=== PATIENT | male | born 1940 | race Caucasian/White ===

== ENCOUNTER → 2016-02-17 | Outpatient (CLI) | payer OTHER ==
[~2016-02-17] MED LIST: ALBU1AER9 INH; ASPI325T39 PO; CRS/10 PO; FAMO1TAB47 PO; FEXO1TAB49 PO; FLUO20CA36 PO; FLUO40CA8 PO; FLUT1INH INH; FLUT220A INH; GLC/500 PO; HYCUDL5 PO; HYG25 PO; MONT1TAB3 PO; MRLP17X PO; NRV/5 PO; NRV5 PO; NTRGSL/4 UT; ONDA4TAB10 SL; ONDA4TAB46 PO; OXYC1TAB3 PO; POTA-74 PO; POTA10TA32 PO; PRED10TA PO; PRLSR20 PO; PRS5 PO; ROSU20TA PO; TAMS0.4C38 PO; TRAZ50TA35 PO; VNTHFA/IN INH
--- NOTE | 2016-02-17 15:00 | DIAGNOSTIC IMAGING REPORT ---
CHEST 2 VIEWS ROUTINE CLINICAL HISTORY: R05 [id number] COMPARISON STUDY: 03/11/2015 FINDINGS: The heart is the upper limits of normal in size. There are small bilateral pleural effusions with associated minor bibasal airspace opacities, atelectatic versus inflammatory.[ IMPRESSION: Very small bilateral pleural effusions with minor bibasilar airspace opacities (atelectatic versus inflammatory Electronically signed by: Vinay Manley M.D. 02/17/2016 2:58 PM Dictated Date/Time: 02/17/2016 2:56 PM
== END | disposition home or self-care (01) ==
LOC: C.RAD1850 14:44
PROVIDERS: ATTEND Allergy & Immunology Allergy
DX: R05 Cough (principal)

== ENCOUNTER 2016-07-20 16:36 | Inpatient (IN) | payer OTHER ==
[~2016-07-20] VITALS: Ht 172.7 cm; Wt 103.0 kg
[~2016-07-20 16:36] MED LIST changes: -FAMO1TAB47 PO; -FLUO20CA36 PO; -FLUT1INH INH; -GLC/500 PO; -HYCUDL5 PO; -NRV/5 PO; -ONDA4TAB10 SL; -OXYC1TAB3 PO; -POTA10TA32 PO; -PRED10TA PO; -PRS5 PO; -ROSU20TA PO; -TRAZ50TA35 PO; -VNTHFA/IN INH
--- NOTE | 2016-07-20 17:22 | EMERGENCY ROOM VISIT NOTE ---
History Report prepared by Gigi: Teresa Padron Under the Supervision of: Dorothea MichaelO. First contact with patient: 16:46 Chief Complaint: SHORTNESS OF BREATH Stated Complaint: CANT CATCH BREATH, WEAK IN THE LEGS History of Present Illness The patient is a 75 year old male who presents to the Emergency Room with complaints of worsening shortness of breath for the past 2 months. He has had a dry cough for about the same time and states that his cough is getting worse now as well. Cough now occasionally more productive, no hemoptysis. His symptoms are worse with exertion and movement. The patient states that when he walks he gets weak in his legs and sometimes feels like he is going to fall over. He notes pain in his left ribs and chest pressure which are worsened with coughing. States this is chronic and related to prior surgery on his diaphragm. He states that the only way he is able to sleep at night is by laying on his left side. states that his ankles have started to swell. The patient has an inhaler at home that he has been using without any relief. His symptoms actually worsen after using his inhaler. He denies recent cold symptoms. Pt denies headache, change in vision, fevers, nausea, vomiting, and hemoptysis. The patient saw his PCP and a sales office manager for his symptoms. He was supposed to see a waiter and cashier but never made an appointment. He saw his PCP again and was sent to the ED for further evaluation. Denies any new exposures, history of TB , or other sick contacts. No recent travel. Source of History: patient, spouse/significant other Onset: 2 months ago Position: other (respiratory) Quality: other (shortness of breath) Timing: worsening Modifying Factors (Worsening): exertion, movement Modifying Factors (Relieving): rest (laying on left side) Associated Symptoms: + cough, + chest pain, + weakness, No fevers, No headache, No nausea, No vomiting Note: notes ankle swelling. Review of Systems See HPI for pertinent positives & negatives. A total of 10 systems reviewed and were otherwise negative. 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 (14) Pulmonary nodule (15) Suspected AAA (16) Weakness of right lower extremity Surgical Problems: (1) H/O coronary angioplasty (2) H/o kidney stone removal (3) S/p removal of malignant lesion of colon (4) S/P thoracotomy Family History FH: cancer FATHER (lung CA) FH: emphysema MOTHER SISTER Social History Smoking Status: Never Smoker Drug Use: none Marital Status: Housing Status: lives with family Current/Historical Medications Scheduled Albuterol Hfa (Ventolin Hfa), 2-4 PUFFS INH Q6H Amlodipine Besylate (Amlodipine Besylate), 5 MG PO DAILY Aspirin (Aspirin Ec), 325 MG PO DAILY Chlorthalidone (Chlorthalidone), 25 MG PO DAILY Finasteride (Finasteride), 5 MG PO DAILY Fluoxetine HCl (Fluoxetine HCl), 10 MG PO DAILY Montelukast Sodium (Singulair), 10 MG PO DAILY Omeprazole (Prilosec), 20 MG PO BID Potassium Chloride Microencaps (Potassium Chloride Er), 10 MEQ PO DAILY Tamsulosin Hcl (Flomax), 0.4 MG PO HS Scheduled PRN Fexofenadine Hcl (Vane Allergy), 180 MG PO DAILY PRN for Allergies Nitroglycerin (Nitrostat), 0.4 MG UT UD PRN for Chest Pain Ondansetron Hcl (Zofran), 4 MG PO Q6H PRN for Nausea Polyethylene (Miralax), 17 GM PO DAILY PRN for Constipation Allergies Coded Allergies: [place] Nut (Verified Allergy, Severe, [place] NUT = THROAT SWELLING, 01/24) Grass (Verified Allergy, Unknown, HAY FEVER, 07/20/16) Atenolol (Verified Adverse Reaction, Unknown, Cough, 07/20/16) Physical Exam Vital Signs Date Time Temp Pulse Resp B/P (MAP) Pulse Ox O2 Delivery O2 Flow Rate FiO2 07/20/16 20:30 93 Nasal Cannula 2.0 07/20/16 20:25 83 Room Air 07/20/16 20:01 79 15 142/79 98 Nasal Cannula 2.0 07/20/16 19:31 75 22 144/78 95 Nasal Cannula 2.0 07/20/16 18:31 83 21 136/79 95 Nasal Cannula 2.0 07/20/16 18:01 87 24 154/87 95 Nasal Cannula 2.0 07/20/16 17:46 84 16 145/82 95 Nasal Cannula 2.0 07/20/16 17:19 88 07/20/16 16:54 92 Room Air 07/20/16 16:54 92 Room Air 07/20/16 16:38 36.7 99 18 143/85 90 Room Air Physical Exam GENERAL: alert, well appearing, well nourished, no distress, non-toxic EYE EXAM: normal conjunctiva, PERRL and EOM's grossly intact OROPHARYNX: no exudate, no erythema, lips, buccal mucosa, and tongue normal and mucous membranes are moist NECK: supple, no nuchal rigidity, no adenopathy, non-tender LUNGS: Coarse breath sounds bilaterally. Normal chest wall mechanics HEART: no murmurs, S1 normal and S2 normal ABDOMEN: abdomen soft, non-tender, normo-active bowel sounds, no masses, no rebound or guarding. BACK: Back is symmetrical on inspection and there is no deformity, no midline tenderness, no CVA tenderness. SKIN: no rashes and no bruising UPPER EXTREMITIES: upper extremities are grossly normal. LOWER EXTREMITIES: Trace pedal edema bilaterally. NEURO EXAM: Normal sensorium, cranial nerves II-XII grossly intact, normal speech, no gross weakness of arms, no gross weakness of legs. Medical Decision & Procedures ER Provider Diagnostic Interpretation: Radiology results have been interpreted by the radiologist and reviewed by me. CHEST 2 VIEWS ROUTINE CLINICAL HISTORY: Shortness of breath and cough. COMPARISON STUDY: Chest CT December 27, 2015 and chest radiograph February 17, 2016. FINDINGS: No pneumothorax is present. There may be trace bilateral pleural effusions. These appear unchanged. Mild bilateral interstitial thickening is unchanged since earlier exams. This suggests interstitial lung disease. There is no evidence of pulmonary edema. Cardiomegaly is unchanged. IMPRESSION: No acute cardiopulmonary findings. No significant change in appearance of the chest. Electronically signed by: Inocencio Kidd M.D. 07/20/2016 5:47 PM Dictated Date/Time: 07/20/2016 5:[address] OF THE CHEST WITH IV CONTRAST CLINICAL HISTORY: Cough and shortness of breath. COMPARISON STUDY: Chest CT December 27, 2015 and chest radiograph July 20, 2016. TECHNIQUE: Following IV administration of 120 mL of Optiray-320, helical axial images of the chest were obtained. Images were viewed in the axial, sagittal and coronal planes. IV contrast was administered without complication. CT DOSE: 585.57 mGy.cm FINDINGS: Mild dilatation of the ascending aorta, measuring 4.3 cm at the level the main pulmonary artery is unchanged. The heart is moderately enlarged. Extensive coronary artery calcification is present. There is no pericardial effusion. A left thoracotomy is noted. There are postsurgical findings at the gastroesophageal junction. A hiatal hernia or epiphrenic diverticulum is unchanged. Mild esophageal dilatation is unchanged. Several mildly enlarged thoracic lymph nodes have slightly increased since exam. An index right hilar node shown image 119 of 256 measures 1.4 cm in short axis diameter. It previously measured 1.2 cm. Index right paratracheal no measures 1 cm. No pneumothorax or pleural effusion is present. Multifocal groundglass opacities are noted. There is mild subpleural reticulation without honeycombing. There is no lobar consolidation. Central airways are patent. Visualized portions of the upper abdomen demonstrate fatty infiltration of the liver. IMPRESSION: 1. No significant change in scattered groundglass opacities and subpleural reticulation. No honeycombing or traction bronchiectasis. The findings may reflect interstitial lung disease with an NSIP pattern. 2. Stable mild dilatation of the ascending aorta. Moderate cardiomegaly with extensive coronary artery calcification. 3. No change in appearance of the esophagus with mild esophageal dilatation and a hiatal hernia/epiphrenic diverticulum. 4. Fatty liver. 5. Slight increase in mild mediastinal and right hilar lymphadenopathy. This is likely reactive although a follow-up chest CT in 6 months could be obtained. Electronically signed by: Inocencio Kidd M.D. 07/20/2016 7:27 PM Dictated Date/Time: 07/20/2016 7:13 PM Laboratory Results 07/20/16 17:20 Red Blood Count 4.75, Mean Corpuscular Volume 93.3, Mean Corpuscular Hemoglobin 31.2, Mean Corpuscular Hemoglobin Concent 33.4, Mean Platelet Volume 9.4, Neutrophils (%) (Auto) 60.4, Lymphocytes (%) (Auto) 22.9, Monocytes (%) (Auto) 11.2, Eosinophils (%) (Auto) 4.9, Basophils (%) (Auto) 0.3, Neutrophils # (Auto ) 3.94, Lymphocytes # (Auto) 1.49, Monocytes # (Auto) 0.73, Eosinophils # (Auto ) 0.32, Basophils # (Auto) 0.02 07/20/16 17:20 Test 07/20/16 17:20 07/20/16 18:55 White Blood Count 6.52 K/uL (4.8-10.8) Red Blood Count 4.75 M/uL (4.7-6.1) Hemoglobin 14.8 g/dL (14.0-18.0) Hematocrit 44.3 % (42-52) Mean Corpuscular Volume 93.3 fL (80-100) Mean Corpuscular Hemoglobin 31.2 pg (25-34) Mean Corpuscular Hemoglobin Concent 33.4 g/dl (32-36) Platelet Count 229 K/uL (130-400) Mean Platelet Volume 9.4 fL (7.4-10.4) Neutrophils (%) (Auto) 60.4 % Lymphocytes (%) (Auto) 22.9 % Monocytes (%) (Auto) 11.2 % Eosinophils (%) (Auto) 4.9 % Basophils (%) (Auto) 0.3 % Neutrophils # (Auto) 3.94 K/uL (1.4-6.5) Lymphocytes # (Auto) 1.49 K/uL (1.2-3.4) Monocytes # (Auto) 0.73 K/uL (0.11-0.59) Eosinophils # (Auto) 0.32 K/uL (0-0.5) Basophils # (Auto) 0.02 K/uL (0-0.2) RDW Standard Deviation 43.6 fL (36.4-46.3) RDW Coefficient of Variation 12.7 % (11.5-14.5) Immature Granulocyte % (Auto) 0.3 % Immature Granulocyte # (Auto) 0.02 K/uL (0.00-0.02) D-Dimer 470 ug/L FEU (0-500) Anion Gap 8.0 mmol/L (3-11) Est Creatinine Clear Calc Drug Dose 77.6 ml/min Estimated GFR () 86.2 Estimated GFR (Non- 74.3 BUN/Creatinine Ratio 16.2 (10-20) Calcium Level 8.5 mg/dl (8.5-10.1) Total Bilirubin 0.3 mg/dl (0.2-1) Aspartate Amino Transf (AST/SGOT) 56 U/L (15-37) Alanine Aminotransferase (ALT/SGPT) 87 U/L (12-78) Alkaline Phosphatase 55 U/L (45-117) Pro-B-Type Natriuretic Peptide 125 pg/ml (0-900) Total Protein 7.7 gm/dl (6.4-8.2) Albumin 3.7 gm/dl (3.4-5.0) Globulin 4.0 gm/dl (2.5-4.0) Albumin/Globulin Ratio 0.9 (0.9-2) Chemistry Specimen Hemolysis Urine Color YELLOW Urine Appearance CLEAR (CLEAR) Urine pH 7.0 (4.5-7.5) Urine Specific [place] 1.021 (1.000-1.030) Urine Protein NEG (NEG) Urine Glucose (UA) NEG (NEG) Urine Ketones NEG (NEG) Urine Occult Blood NEG (NEG) Urine Nitrite NEG (NEG) Urine Bilirubin NEG (NEG) Urine Urobilinogen NEG (NEG) Urine Leukocyte Esterase NEG (NEG) Laboratory results per my review. Medications Administered Medications (Trade) Dose Ordered Sig/Janet Route Start Time Stop Time Status Last Admin Dose Admin Albuterol/ Ipratropium (Duoneb) 3 ml NOW STAT INH 07/20/16 19:33 07/20/16 19:34 DC 07/20/16 19:52 3 ML Methylprednisolone Sodium Succinate (Solu-Medrol IV) 80 mg NOW STAT IV 07/20/16 19:34 07/20/16 19:35 DC 07/20/16 19:52 80 MG Albuterol/ Ipratropium (Duoneb) 3 ml NOW STAT INH 07/20/16 20:15 07/20/16 20:17 DC 07/20/16 21:25 3 ML Pantoprazole Sodium (Protonix Tab) 40 mg NOW STAT PO 07/20/16 20:15 07/20/16 20:17 DC 07/20/16 20:25 40 MG ECG Indication: SOB/dyspnea Rate (beats per minute): 90 Rhythm: normal sinus Findings: no acute ischemic change, left axis deviation, other (normal intervals) ED Course 1650: The patient was evaluated in room B5. A complete history and physical exam was performed. 1932: DuoNeb 3 ml INH 1933: Solu-Medrol 80 mg IV 1936: I reassessed the patient at this time. He is resting comfortably. I discussed the results and treatment plan with the patient and his . I answered all pertaining questions that they had. They expressed understanding and verbalized agreement. 2010: I spoke with Dr. Garibay. We discussed the patients results and treatment plan. The patient will be evaluated by the [facility] for further management. Medical Decision Differential diagnoses includes but is not limited to pneumonia, bronchitis, COPD/Asthma exacerbation, pneumothorax, pulmonary embolism, congestive heart failure, acute coronary syndrome. Medication Reconciliation: I attest that I have personally reviewed the patient' s current medication list. Patient well-appearing here despite complaints, however at rest just with conversation patient's saturations 87%. Patient placed on nasal cannula 2 L/m and sats improved to 95%. Patient reported improvement of being on the nasal cannula. No focal area of consolidation however CT the patient's chest revealed bilateral groundglass opacities consistent with NSIP. Patient started on steroids and nebulizer treatments here. No leukocytosis or fever to suggest other occult infection. 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 Patient noted for continued treatment, monitoring of hypoxia and hopeful weaning off of oxygen requirements. Likely will need pulmonary consultation. Doubt cardiac etiology, although given patient's age and risk factors, possible component of congestive heart failure could still be considered. Patient's vital signs otherwise stable in the emergency department. Doubt PE, ACS, tamponade, no evidence of effusion, doubt bacteremia/sepsis. Consults Time Called: 1944 Consulting Physician: Dr. Garibay Returned Call: [address] Garibay. We discussed the patients results and treatment plan. The patient will be evaluated by the [facility] for further management. Impression Primary Impression: Dyspnea Additional Impressions: Hypoxia NSIP (nonspecific interstitial pneumonia) Scribe Attestation The scribe's documentation has been prepared under my direction and personally reviewed by me in its entirety. I confirm that the note above accurately reflects all work, treatment, procedures, and medical decision making performed by me. Departure Information Dispostion Being Evaluated By Hospitalist Referrals Arminda Chen D.O. (PCP) Patient Instructions [facility] Problem Qualifiers Primary Impression: Dyspnea Dyspnea type: dyspnea on exertion Qualified Codes: R06.09 - Other forms of dyspnea
[2016-07-20 17:33] LABS: BASO % 0.3 %; BASO ABS # 0.02 K/uL (0-0.2); COMPLETE YES; EOS % 4.9 %; HEMATOCRIT 44.3 % (42-52); IG% 0.3 %; LYMPH % 22.9 %; LYMPH ABS # 1.49 K/uL (1.2-3.4); MEAN CELL VOLUME 93.3 fL (80-100); MEAN CORPUSCULAR HEMOGLOBIN 31.2 pg (25-34); MEAN CORPUSCULAR HGB CONC 33.4 g/dl (32-36); MEAN PLATELET VOLUME 9.4 fL (7.4-10.4); MONO % 11.2 %; NEUT % 60.4 %; PLATELET COUNT 229 K/uL (130-400); RED BLOOD COUNT 4.75 M/uL (4.7-6.1); WHITE BLOOD COUNT 6.52 K/uL (4.8-10.8)
--- NOTE | 2016-07-20 17:48 | DIAGNOSTIC IMAGING REPORT ---
CHEST 2 VIEWS ROUTINE CLINICAL HISTORY: Shortness of breath and cough. COMPARISON STUDY: Chest CT December 27, 2015 and chest radiograph February 17, 2016. FINDINGS: No pneumothorax is present. There may be trace bilateral pleural effusions. These appear unchanged. Mild bilateral interstitial thickening is unchanged since earlier exams. This suggests interstitial lung disease. There is no evidence of pulmonary edema. Cardiomegaly is unchanged. IMPRESSION: No acute cardiopulmonary findings. No significant change in appearance of the chest. Electronically signed by: Inocencio Kidd M.D. 07/20/2016 5:47 PM Dictated Date/Time: 07/20/2016 5:43 PM
[2016-07-20] MEDS ORDERED: PRS5 PO (17:52)
[2016-07-20 18:00] LABS: ALT/SGPT 87 U/L (12-78); AST/SGOT 56 U/L (15-37); BLOOD UREA NITROGEN 16 mg/dl (7-18); BUN/CREATININE RATIO 16.2 (10-20); CALCIUM 8.5 mg/dl (8.5-10.1); CARBON DIOXIDE 31 mmol/L (21-32); CHLORIDE 102 mmol/L (98-107); GLUCOSE 161 mg/dl (70-99); POTASSIUM 3.6 mmol/L (3.5-5.1); SODIUM 141 mmol/L (136-145)
[2016-07-20 18:08] LABS: ALB/GLOB RATIO 0.9 (0.9-2); ALKALINE PHOSPHATASE 55 U/L (45-117)
[2016-07-20] MEDS ORDERED: FLUO20CA36 PO (18:16)
[2016-07-20] MEDS ORDERED: NRV/5 PO (18:16)
[2016-07-20] MEDS ORDERED: POTA10TA32 PO (18:16)
[2016-07-20] MEDS ORDERED: VNTHFA/IN INH (18:17)
[2016-07-20] MEDS ORDERED: OPTIRAY 320 IV PRN (19:00)
[2016-07-20 19:09] LABS: URINE APPEARANCE CLEAR (CLEAR); URINE BILIRUBIN NEG (NEG); URINE COLOR YELLOW; URINE NITRITE NEG (NEG); URINE SPECIFIC GRAVITY 1.021 (1.000-1.030); UROBILINOGEN NEG (NEG); ZZUR CULT IF INDIC CLEAN CATCH NO
[2016-07-20 19:14] LABS: MANUAL MICROSCOPIC REQUIRED? NO; REVIEW REQ? NO
--- NOTE | 2016-07-20 19:28 | DIAGNOSTIC IMAGING REPORT ---
CT OF THE CHEST WITH IV CONTRAST CLINICAL HISTORY: Cough and shortness of breath. COMPARISON STUDY: Chest CT December 27, 2015 and chest radiograph July 20, 2016. TECHNIQUE: Following IV administration of 120 mL of Optiray-320, helical axial images of the chest were obtained. Images were viewed in the axial, sagittal and coronal planes. IV contrast was administered without complication. CT DOSE: 585.57 mGy.cm FINDINGS: Mild dilatation of the ascending aorta, measuring 4.3 cm at the level the main pulmonary artery is unchanged. The heart is moderately enlarged. Extensive coronary artery calcification is present. There is no pericardial effusion. A left thoracotomy is noted. There are postsurgical findings at the gastroesophageal junction. A hiatal hernia or epiphrenic diverticulum is unchanged. Mild esophageal dilatation is unchanged. Several mildly enlarged thoracic lymph nodes have slightly increased since exam. An index right hilar node shown image 119 of 256 measures 1.4 cm in short axis diameter. It previously measured 1.2 cm. Index right paratracheal no measures 1 cm. No pneumothorax or pleural effusion is present. Multifocal groundglass opacities are noted. There is mild subpleural reticulation without honeycombing. There is no lobar consolidation. Central airways are patent. Visualized portions of the upper abdomen demonstrate fatty infiltration of the liver. IMPRESSION: 1. No significant change in scattered groundglass opacities and subpleural reticulation. No honeycombing or traction bronchiectasis. The findings may reflect interstitial lung disease with an NSIP pattern. 2. Stable mild dilatation of the ascending aorta. Moderate cardiomegaly with extensive coronary artery calcification. 3. No change in appearance of the esophagus with mild esophageal dilatation and a hiatal hernia/epiphrenic diverticulum. 4. Fatty liver. 5. Slight increase in mild mediastinal and right hilar lymphadenopathy. This is likely reactive although a follow-up chest CT in 6 months could be obtained. Electronically signed by: Inocencio Kidd M.D. 07/20/2016 7:27 PM Dictated Date/Time: 07/20/2016 7:13 PM
[2016-07-20] MEDS ORDERED: ALBUT/IPRATROP 3MG/0.5MG NEB 3 ML VIAL INH STA ×2 (19:33→20:15)
[2016-07-20] MEDS ORDERED: METHYLPREDNISOLONE 125 MG VIAL IV STA (19:34)
[2016-07-20] MEDS ORDERED: PANTOprazole SOD 40 MG TAB PO STA (20:15)
[2016-07-20] MEDS ORDERED: MAGNESIUM HYDROXIDE SUSP 30 ML UDC PO PRN (21:15)
[2016-07-20] MEDS ORDERED: ONDANSETRON 4 MG TAB PO PRN (21:15)
[2016-07-20] MEDS ORDERED: ONDANSETRON INJ 2 MG/ML 2 ML VIAL IV PRN (21:15)
[2016-07-20] MEDS ORDERED: ALUMINUM/MAGNESIUM/SIMETH (MAALOX MAX) 30 ML UDC PO PRN (21:15)
[2016-07-20] MEDS ORDERED: ACETAMINOPHEN 325 MG TAB PO PRN (21:15)
[2016-07-20] MEDS ORDERED: POLYETHYLENE (MIRALAX) 17 GM PACK PO PRN ×2 (21:15)
[2016-07-20] MEDS ORDERED: RANITIDINE HCL 150 MG TAB PO SCH (21:15)
[2016-07-20] MEDS ORDERED: FEXOFENADINE HCL 180 MG TAB PO PRN (21:15)
[2016-07-20 23:05] VITALS: BP 139/70; TEMP 36.7; O2SAT 95; BMI 35.1
[2016-07-20] MEDS: TAMSULOSIN HCL 0.4 MG CAP PO SCH (23:28)
[2016-07-20 23:53] VITALS: BP 150/84; PULSE 92; TEMP 36.7; O2SAT 92
[2016-07-21] VITALS (10 sets, daily range): BP systolic 121–156; BP diastolic 66–94; PULSE 91–111; TEMP 36.3–37; O2SAT 90–97
--- NOTE | 2016-07-21 02:02 | History and Physical ---
History & Physical Date & Time of Service: Jul 21, 2016 at 01:20 Chief Complaint: Dyspnea, Hypoxia Primary Care Physician: Arminda Chen D.O. History of Present Illness Source: patient, family (son), clinic records This is a 75 year old male with a PMH of CAD s/p balloon angioplasty with no stent, HTN, HLD, DM2, chronic dry cough, allergic rhinitis presented with worsening shortness of breath, dyspnea on exertion, chronic dry cough as per patient's son. Patient states that he's been following with Dr. Argueta of pulmonology who suggested he start inhalers for possible asthma - he tried using these, but the cough persisted, so he stopped using these. His lisinopril was stopped due to the dry cough. He has had hiatal hernia and complicated procedure/fundoplication to improve symptoms. States he gets acid reflux often. Also c/o intermittent chest pressure/pain on the L lower chest/LUQ abdomen. Presented to the ER; became slightly hypoxic even during conversation. Denies fevers/chills/nausea/vomiting/diarrhea. Past Medical/Surgical History Medical Problems: (1) Allergic asthma Status: Chronic (2) Allergic rhinitis Status: Chronic (3) Anxiety Status: Chronic (4) CAD (coronary artery disease) Status: Chronic (5) Depression Status: Chronic (6) DM type 2 (diabetes mellitus, type 2) Status: Chronic (7) Epiphrenic diverticulum Status: Chronic (8) GERD (gastroesophageal reflux disease) Status: Chronic (9) H/O malignant neoplasm of colon Status: Chronic (10) Hyperlipidemia Status: Chronic (11) Hypertension Status: Chronic (12) Lumbar disc disease Status: Chronic (13) Pulmonary nodule Status: Chronic (14) Suspected AAA Status: Chronic Surgical Problems: (1) H/O coronary angioplasty Permanent Comment: 12/2013- angioplasty of LAD Status: Chronic (2) H/o kidney stone removal Status: Chronic (3) S/p removal of malignant lesion of colon Status: Chronic (4) S/P thoracotomy Permanent Comment: 02/24/2013- diverticulectomy of esophagus thoracic approach, esophogastric fundoplasty, imbrication of diaphragm Status: Chronic Family History FH: cancer FATHER (lung CA) FH: emphysema MOTHER SISTER Social History Smoking Status: Never Smoker Drug Use: none Marital Status: Multi-Drug Resistant Organisms History of MDRO: No Allergies Coded Allergies: Wake Nut (Verified Allergy, Severe, MACADAMIA NUT = THROAT SWELLING, 01/24) Grass (Verified Allergy, Unknown, HAY FEVER, 07/20/16) Atenolol (Verified Adverse Reaction, Unknown, Cough, 07/20/16) Home Medications Scheduled Albuterol Hfa (Ventolin Hfa), 2-4 PUFFS INH Q6H Amlodipine Besylate (Amlodipine Besylate), 5 MG PO DAILY Aspirin (Aspirin Ec), 325 MG PO DAILY Chlorthalidone (Chlorthalidone), 25 MG PO DAILY Finasteride (Finasteride), 5 MG PO DAILY Fluoxetine HCl (Fluoxetine HCl), 10 MG PO DAILY Montelukast Sodium (Singulair), 10 MG PO DAILY Omeprazole (Prilosec), 20 MG PO BID Potassium Chloride Microencaps (Potassium Chloride Er), 10 MEQ PO DAILY Tamsulosin Hcl (Flomax), 0.4 MG PO HS Scheduled PRN Fexofenadine Hcl (Vane Allergy), 180 MG PO DAILY PRN for Allergies Nitroglycerin (Nitrostat), 0.4 MG UT UD PRN for Chest Pain Ondansetron Hcl (Zofran), 4 MG PO Q6H PRN for Nausea Polyethylene (Miralax), 17 GM PO DAILY PRN for Constipation Review of Systems Constitutional: No fever, No chills, No sweats, No weakness, No fatigue Respiratory: + cough, + shortness of breath, + dyspnea on exertion, No sputum, No wheezing, No dyspnea at rest, No hemoptysis Cardiovascular: + chest pain, + orthopnea, No PND, No edema, No claudication, No palpitations Abdomen: + pain (LUQ), + problem reported (+reflux), No nausea, No vomiting, No diarrhea, No constipation, No GI bleeding Musculoskeletal: + joint pain (chronic back pain), No muscle pain, No swelling , No calf pain Genitourinary - Male: No hematuria, No dysuria, No urinary frequency, No urinary urgency Neurologic: No weakness, No numbness/tingling, No vertigo, No balance problems Psychiatric: No depression symptoms, No anxiety, No insomnia Endocrine: No fatigue Hematologic / Lymphatic: No abnormal bleeding/bruising Integumentary: No rash Allergic / Immunologic: + environmental allergies, + seasonal allergies Physical Exam Vital Signs Date Time Temp Pulse Resp B/P (MAP) Pulse Ox O2 Delivery O2 Flow Rate FiO2 07/20/16 23:53 36.7 92 20 150/84 (106) 92 2.0 07/20/16 23:05 36.7 20 139/70 95 Nasal Cannula 2.0 07/20/16 22:01 81 22 139/70 94 07/20/16 21:31 81 22 139/70 94 Nasal Cannula 2.0 07/20/16 21:23 84 07/20/16 20:30 93 Nasal Cannula 2.0 07/20/16 20:25 83 Room Air 07/20/16 20:01 79 15 142/79 98 Nasal Cannula 2.0 07/20/16 19:31 75 22 144/78 95 Nasal Cannula 2.0 07/20/16 18:31 83 21 136/79 95 Nasal Cannula 2.0 07/20/16 18:01 87 24 154/87 95 Nasal Cannula 2.0 07/20/16 17:46 84 16 145/82 95 Nasal Cannula 2.0 07/20/16 17:19 88 07/20/16 16:54 92 Room Air 07/20/16 16:54 92 Room Air 07/20/16 16:38 36.7 99 18 143/85 90 Room Air General Appearance: no apparent distress Head: normocephalic, atraumatic Respiratory/Chest: chest non-tender, lungs clear, normal breath sounds, no respiratory distress, no accessory muscle use Cardiovascular: regular rate, rhythm, no edema, no gallop, no JVD, no murmur Abdomen/GI: normal bowel sounds, non tender, soft Back: no CVA tenderness, no muscle spasm Extremities/Musculoskelatal: normal capillary refill, no pedal edema Neurologic/Psych: 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 II-XII nml as tested, no motor/sensory deficits, alert, normal mood/affect, oriented x 3 Skin: normal color Lymphatic: no adenopathy Diagnostics Laboratory Results Results Past 24 Hours Test 07/20/16 17:20 07/20/16 18:55 Range/Units White Blood Count 6.52 4.8-10.8 K/uL Red Blood Count 4.75 4.7-6.1 M/uL Hemoglobin 14.8 14.0-18.0 g/dL Hematocrit 44.3 42-52 % Mean Corpuscular Volume 93.3 80-100 fL Mean Corpuscular Hemoglobin 31.2 25-34 pg Mean Corpuscular Hemoglobin Concent 33.4 32-36 g/dl Platelet Count 229 130-400 K/uL Mean Platelet Volume 9.4 7.4-10.4 fL Neutrophils (%) (Auto) 60.4 % Lymphocytes (%) (Auto) 22.9 % Monocytes (%) (Auto) 11.2 % Eosinophils (%) (Auto) 4.9 % Basophils (%) (Auto) 0.3 % Neutrophils # (Auto) 3.94 1.4-6.5 K/uL Lymphocytes # (Auto) 1.49 1.2-3.4 K/uL Monocytes # (Auto) 0.73 0.11-0.59 K/uL Eosinophils # (Auto) 0.32 0-0.5 K/uL Basophils # (Auto) 0.02 0-0.2 K/uL RDW Standard Deviation 43.6 36.4-46.3 fL RDW Coefficient of Variation 12.7 11.5-14.5 % Immature Granulocyte % (Auto) 0.3 % Immature Granulocyte # (Auto) 0.02 0.00-0.02 K/uL D-Dimer 470 0-500 ug/L FEU Sodium Level 141 136-145 mmol/L Potassium Level 3.6 3.5-5.1 mmol/L Chloride Level 102 98-107 mmol/L Carbon Dioxide Level 31 21-32 mmol/L Anion Gap 8.0 3-11 mmol/L Blood Urea Nitrogen 16 7-18 mg/dl Creatinine 1.00 0.60-1.40 mg/dl Est Creatinine Clear Calc Drug Dose 77.6 ml/min Estimated GFR () 86.2 Estimated GFR (Non- 74.3 BUN/Creatinine Ratio 16.2 10-20 Random Glucose 161 70-99 mg/dl Calcium Level 8.5 8.5-10.1 mg/dl Total Bilirubin 0.3 0.2-1 mg/dl Aspartate Amino Transf (AST/SGOT) 56 15-37 U/L Alanine Aminotransferase (ALT/SGPT) 87 12-78 U/L Alkaline Phosphatase 55 45-117 U/L Troponin I < 0.015 0-0.045 ng/ml Pro-B-Type Natriuretic Peptide 125 0-900 pg/ml Total Protein 7.7 6.4-8.2 gm/dl Albumin 3.7 3.4-5.0 gm/dl Globulin 4.0 2.5-4.0 gm/dl Albumin/Globulin Ratio 0.9 0.9-2 Chemistry Specimen Hemolysis Urine Color YELLOW Urine Appearance CLEAR CLEAR Urine pH 7.0 4.5-7.5 Urine Specific Ventress 1.021 1.000-1.030 Urine Protein NEG NEG Urine Glucose (UA) NEG NEG Urine Ketones NEG NEG Urine Occult Blood NEG NEG Urine Nitrite NEG NEG Urine Bilirubin NEG NEG Urine Urobilinogen NEG NEG Urine Leukocyte Esterase NEG NEG Diagnostic Radiology CT OF THE CHEST WITH IV CONTRAST CLINICAL HISTORY: Cough and shortness of breath. COMPARISON STUDY: Chest CT December 27, 2015 and chest radiograph July 20, 2016. TECHNIQUE: Following IV administration of 120 mL of Optiray-320, helical axial images of the chest were obtained. Images were viewed in the axial, sagittal and coronal planes. IV contrast was administered without complication. CT DOSE: 585.57 mGy.cm FINDINGS: Mild dilatation of the ascending aorta, measuring 4.3 cm at the level the main pulmonary artery is unchanged. The heart is moderately enlarged. Extensive coronary artery calcification is present. There is no pericardial effusion. A left thoracotomy is noted. There are postsurgical findings at the gastroesophageal junction. A hiatal hernia or epiphrenic diverticulum is unchanged. Mild esophageal dilatation is unchanged. Several mildly enlarged thoracic lymph nodes have slightly increased since exam. An index right hilar node shown image 119 of 256 measures 1.4 cm in short axis diameter. It previously measured 1.2 cm. Index right paratracheal no measures 1 cm. No pneumothorax or pleural effusion is present. Multifocal groundglass opacities are noted. There is mild subpleural reticulation without honeycombing. There is no lobar consolidation. Central airways are patent. Visualized portions of the upper abdomen demonstrate fatty infiltration of the liver. IMPRESSION: 1. No significant change in scattered groundglass opacities and subpleural reticulation. No honeycombing or traction bronchiectasis. The findings may reflect interstitial lung disease with an NSIP pattern. 2. Stable mild dilatation of the ascending aorta. Moderate cardiomegaly with extensive coronary artery calcification. 3. No change in appearance of the esophagus with mild esophageal dilatation and a hiatal hernia/epiphrenic diverticulum. 4. Fatty liver. 5. Slight increase in mild mediastinal and right hilar lymphadenopathy. This is likely reactive although a follow-up chest CT in 6 months could be obtained. EKG Left axis deviation Pulmonary disease pattern Incomplete right bundle branch block Moderate voltage criteria for LVH, may be normal variant Impression Assessment and Plan This is a 75 year old male with a PMH of CAD s/p balloon angioplasty with no stent, HTN, HLD, DM2, chronic dry cough, allergic rhinitis presented with worsening shortness of breath Chronic Dry Cough likely secondary to GERD patient with significant hiatal hernia s/p fundoplication surgery Prilosec 20mg BID - change to Protonix 40mg BID while inpatient started on Zantac patient also has allergic rhinitis and possible asthma - continue Singulair and Vane may need inhaler added - consulted pulmonology for further input will likely need outpatient PFTs Hypoxia possible Interstitial Lung Disease Chest CT obtained No significant change in scattered groundglass opacities and subpleural reticulation. No honeycombing or traction bronchiectasis. The findings may reflect interstitial lung disease with an NSIP pattern patient becoming hypoxic even during conversations no wheezing on exam continue supplemental O2, low dose solu-medrol, nebulizers pulmonary consultation obtained Chest Pressure r/o ACS in the setting of CAD EKG suggests A. Flutter, though will obtain another as his rhythm seems regular also c/o chest pressure on the L side will obtain echo, due to dyspnea on exertion and chest pressure trend cardiac enzymes monitor in tele continue ASA should be on a statin/b-yony - saw cardiology as outpatient on July 15 - recommendation to start low dose statin/b-yony; will need to discuss with patient DM2 well controlled last Ha1c = 7.1% diet-controlled should be started on an ARB (KENDRICK-I intolerance due to cough) DVT ppx SCDs FULL CODE Advanced Directives Existing Living Will: No Existing Power of Home Delivery Driver: No VTE Prophylaxis VTE Risk Assessment Done? Y/N: Yes Risk Level: Moderate
[2016-07-21 02:58] LABS: PROTHROMBIN TIME (PATIENT) 10.3 SECONDS (9.0-12.0)
[2016-07-21 03:19] LABS: CKMB/CK RATIO 1.5 (0-3.0)
[2016-07-21] MEDS: METHYLPREDNISOLONE IV 20 MG in SYRINGE 0 ML IV SCH ×3 (04:05→20:41)
[2016-07-21] MEDS: HEPARIN SOD 5000 UNIT/0.5 ML CARP SQ SCH ×3 (05:45→20:46)
[2016-07-21] MEDS: ALBUT/IPRATROP 3MG/0.5MG NEB 3 ML VIAL INH SCH ×2 (07:04→11:23)
[2016-07-21] MEDS: ASPIRIN 325 MG ECTAB PO SCH (07:57)
[2016-07-21] MEDS: MONTELUKAST SOD 10 MG TAB PO SCH (07:58)
[2016-07-21] MEDS: FLUOXETINE HCL 10 MG CAP PO SCH (07:58)
[2016-07-21] MEDS: POTASSIUM CHLORIDE 10 MEQ TABCR PO SCH (07:58)
[2016-07-21] MEDS: CHLORTHALIDONE 25 MG TAB PO SCH (07:58)
[2016-07-21] MEDS: PANTOprazole SOD 40 MG TAB PO SCH ×2 (07:58→20:42)
[2016-07-21] MEDS: AMLODIPINE BESYLATE 5 MG TAB PO SCH (07:58)
[2016-07-21] MEDS ORDERED: ASPIRIN 81 MG ECTAB PO SCH (09:00)
[2016-07-21] MEDS ORDERED: RANITIDINE HCL 150 MG TAB PO SCH ×2 (09:00→21:00)
[2016-07-21] MEDS ORDERED: FINASTERIDE 5 MG TAB PO SCH ×2 (09:00→21:00)
[2016-07-21] MEDS ORDERED: HYDROCODONE/HOMATROPINE SYRUP 5MG/1.5MG 5ML UDP PO PRN (10:00)
[2016-07-21] MEDS ORDERED: PERFLUTREN LIPID MICROSPHERE (DEFINITY) IV ONE (10:12)
[2016-07-21 12:03] LABS: CKMB/CK RATIO 1.6 (0-3.0)
[2016-07-21] MEDS: IPRATROPIUM BROMIDE NEB SOLN 0.02% 2.5 ML VIAL INH SCH ×2 (14:32→22:30)
[2016-07-21] MEDS: LEVALBUTEROL 0.63MG/3 ML NEB INH SCH ×2 (14:32→22:30)
--- NOTE | 2016-07-21 14:37 | PULMONARY CONSULTATION ---
DATE OF CONSULTATION: 07/21/2016 DATE OF CONSULTATION: 07/21/2016. TIME: 1:30 p.m. REPORT OF CONSULTATION: The patient was seen in room 284 bed 2. He is a 75-year-old male with a chief complaint of cough and shortness of breath. The patient has had a cough for at least 5 years or more. He has had some degree of chronic shortness of breath, but it became worse over the past 2 months. His cough is generally dry. Early in the morning he may expectorate a small amount of clear sputum. After that his cough is dry. The cough sometimes awakens him at night, but it is generally worse during the day. His cough increases when he is talking or exerting himself. He has never coughed up any blood. He cannot think of anything which makes his cough worse. He had followed up with Dr. Argueta in the past. At one point in time it was thought that he may have asthma because he seemed to respond to albuterol. Subsequently, that did not work, but he seemed to respond to Flovent. Now that does not seem to work. He has a history of reflux. He states that he must lay on his left side when he sleeps at night and he sleeps in a recliner. He did undergo an extensive surgery about 2 years ago at [facility]. A thoracotomy was done. This had something to do with his left diaphragm. The patient stated it was not entirely paralyzed but partially paralyzed. They also repaired an esophageal diverticulum. He did not really understand exactly what procedure was done. If he lays on his right side he coughs much more. He also needs to keep his head up at night. This is part of the reason that he sleeps in a recliner. In the past it seemed that atenolol would increase his cough. Subsequently, that medicine was stopped. For a while it seemed like his cough was better, but now his cough is worse again. The patient states he has 4 steps to get into his house. If he walks those 4 steps and then keeps going and walking farther he will get short of breath. He does not think his dyspnea is seasonal. He has not had chills, fevers or sweats. The patient does have what he believes is postnasal drip. This bothers him in the morning. He thinks the phlegm that he coughs up in the morning might be due to the postnasal drip. PAST SURGICAL HISTORY: 1. Cardiac angioplasty. 2. Kidney stone removal. 3. Removal of a colon lesion that apparently was an adenoma. 4. Thoracotomy as noted above. PAST MEDICAL HISTORY: 1. Prior pulmonary nodules which apparently decreased or resolved. 2. Allergic rhinitis. 3. Anxiety. 4. Depression. 5. Coronary artery disease. 6. Hyperlipidemia. 7. Diabetes type 2. 8. Reflux. 9. Lumbar disc disease. 10. BPH. 11. History of sleep apnea from 2013. The patient did not have any treatment. SOCIAL HISTORY: Tobacco never. ETOH -- none. ALLERGIES: QUESTIONABLE ALLERGY TO ATENOLOL. FAMILY HISTORY: Father with lung cancer. 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 Mother from emphysema and a sister is also with emphysema. They were both smokers. PETS: The patient has 1 dog. He does not believe the dog affects his symptoms at all. 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 REVIEW OF SYSTEMS: The patient's energy level is somewhat low. He apparently snores. The patient lives with his . He denies difficulty initiating sleep, but he does have frequent nocturnal awakenings. In part, this is related to nocturia. His appetite is very good. His weight has been stable to gaining. He denies any bowel problems. His urinary problems are those of frequency. The review of systems are otherwise negative. Ten systems were reviewed. PHYSICAL EXAMINATION: GENERAL: The patient is a 75-year-old male who was cooperative, alert and oriented. He was in no distress. He did cough occasionally. VITAL SIGNS: Temperature is 36.3. HEAD, EYES, EARS, NOSE, AND THROAT: Pupils were reactive. Nares were clear. Mouth exam showed dentures. There was a Mallampati grade 2 pharynx. NECK: Palpation of the neck reveals no lymph nodes. CHEST: Inspection of the chest reveals a large scar in the left lateral posterior chest. Blood pressure is 121/72. HEART: Rate was 110 per minute. He has frequent extrasystoles at times. LUNGS: Lung isaac revealed fine rales bilaterally that are dry. The respiratory rate was 20 breaths per minute. ABDOMEN: Soft. Bowel sounds were present. There was no tenderness to palpation, masses or organomegaly. EXTREMITIES: Showed no cyanosis, clubbing or edema. LABORATORY DATA: CBC showed a white count of 6.52, hemoglobin 14.8, platelets 229,000. D-dimer was 470, which is within the limits of normal. INR is 1. Urinalysis was negative. Electrolytes show sodium 141, potassium 3.6, chloride 102, bicarbonate 31. The BUN was 16 with a creatinine of 1. The AST is elevated at 56 and the ALT is elevated at 87, but the alkaline phosphatase was normal at 55. Total bilirubin was normal at 0.3. Troponins were negative x3. Protein was 7.7 with albumin 3.7 and globulin 4.0. Chest x-ray showed no definite acute findings. Mild increased interstitial markings were noted. He did have a CAT scan of the chest done on the . This showed scattered ground-glass opacities with subpleural reticulation. Interstitial lung disease is suspected with a possible nonspecific interstitial pneumonia pattern. There is mild dilation of the thoracic aorta measuring 4.3 cm. Cardiomegaly is noted. Extensive coronary calcification was noted. Fatty liver was noted. There is mild mediastinum along with right hilar lymphadenopathy. The hilar lesion measures 1.4 cm and previously measured 1.2 cm in December 2015. IMPRESSIONS: 1. Chronic cough. 2. Possible interstitial lung disease. 3. GERD. 4. Right hilar adenopathy. 5. Right paratracheal adenopathy. 6. Mild dilation of the thoracic aorta. 7. Postnasal drip. 8. Abnormal liver function tests. COMMENTS AND RECOMMENDATIONS: It is difficult to determine why the patient has this chronic cough. I suspect he may be gradually developing interstitial lung disease. He has had some prednisone in the past but without dramatic improvement. It is not known how long he had this treatment. He does have some rales heard posteriorly bilaterally. The fact that he has a normal D-dimer makes the possibility of pulmonary embolic disease very low. He is developing increased heart rate with some irregularity. In light of this, I would suggest changing his respiratory treatments to Xopenex 0.63 plus ipratropium on a 3 times per day basis. RECOMMENDATIONS: Ultimately, he should have repeat pulmonary functions. They were last done in the pulmonary offices in 2014, at which time he showed moderate restriction without change following bronchodilators. He likely should have a CAT scan in 6 months in followup of the hilar lymphadenopathy. I will see how he does with the steroids. They may be bothering his blood sugars and will need to be tapered. At present, he is on 20 mg IV q. 8 hours. He is on medications for reflux which also may be at the root of his problem.
--- NOTE | 2016-07-21 15:00 | ECHOCARDIOGRAM REPORT ---
*NOTICE TO RECEIVING DEMOCRAT AGENCY This information is strictly Confidential and protected under [place] law. [place] law prohibits you from making any further disclosure of this information unless further disclosure is expressly permitted by the written consent of the person to whom it pertains or is authorized by law. A general authorization for the release of medical or other information is not sufficient for this purpose. Hospital accepts no responsibility if the information is made available to any other person, INCLUDING THE PATIENT. Interpretation Summary * Name: PREETI BRITO Study Date: 07/21/2016 09:14 AM BP: 151/94 mmHg * Patient Location: [facility]\S\N284\S\2 HR: 109 * : 1940 (M/d/yyyy) Gender: Male Height: 67 in * Age: 75 yrs Ethnicity: CA Weight: 233 lb * Ordering Physician: Wade Garibay * Referring Physician: Self, Referred * Performed By: Ankita Bynum * * Reason For Study: CHEST PAIN * BSA: 2.2 m2 * The study was technically adequate. * Compared to prior study, there is no significant change. * -- Conclusions -- * Ejection Fraction = >70 %. * There is mild concentric left ventricular hypertrophy. * Grade I diastolic dysfunction, (abnormal relaxation pattern). * No significant valvular pathology. Procedure Details * A complete two-dimensional transthoracic echocardiogram was performed (2D, M-mode, Doppler and color flow Doppler). * The study was technically difficult. * There were technical limitations due to patient'sbody habitus * A contrast injection of Definity was performed to improve assessment of LV function. * Contrast was injected into an intravenous site in the left arm. * One vial of Definity ultrasound contrast was diluted in normal saline to a total volume of 10 ml. A total of '3' ml of solution was administered during imaging. * Lot # [id number] of Definity utilized for procedure. * Expiration date 07/26. * The attending nurse who injected the contrast agent was JIMENA PARR RN. Left Ventricle * The left ventricle is normal in size. * There is no thrombus. * There is mild concentric left ventricular hypertrophy. * Ejection Fraction = >70 %. * No regional wall motion abnormalities noted. Right Ventricle * The right ventricle is normal size. * The right ventricular systolic function is normal as assessed by tricuspid annular plane systolic excursion (TAPSE) (normal >1.5 cm). Atria * The left atrial size is normal. * Right atrial size is normal. * There is no evidence of atrial septal defect, but resolution does not allow assessment for a patent foramen ovale. Mitral Valve * There is mild mitral annular calcification. * The posterior mitral valve leaflet is mildly calcified. * There is no mitral valve stenosis. * Significant mitral regurgitation is absent. Tricuspid Valve * The tricuspid valve is normal. * There is no tricuspid stenosis. * Significant tricuspid regurgitation is absent. Aortic Valve * The aortic valve is not well visualized. * Aortic stenosis is absent. * There is no significant aortic regurgitation. Pulmonic Valve * The pulmonary valve is not well seen, but the Doppler examination is normal without significant regurgitation or stenosis. Great Vessels * Mild aortic root dilatation. * Mildly dilated ascending aorta. Pericardium/Pleural * There is no pericardial effusion. Great Vessels * Normal inferior vena cava diameter and respiratory variation suggests normal central venous pressure. Left Ventricular Diastolic Function * Grade I diastolic dysfunction, (abnormal relaxation pattern). MMode 2D Measurements and Calculations IVSd 1.4 cm IVSs 2.0 cm LVIDd 4.6 cm LVIDs 2.2 cm LVPWd 1.2 cm LVPWs 1.8 cm IVS/LVPW 1.2 FS 52.4 % EDV(Teich) 96.5 ml ESV(Teich) 15.8 ml EF(Teich) 83.6 % EDV(cubed) 96.2 ml ESV(cubed) 10.4 ml EF(cubed) 89.2 % % IVS thick 48.4 % % LVPW thick 50.6 % LV mass(C)d 223.1 grams LV mass(C)dI 103.4 grams/m\S\2 LV mass(C)s 171.5 grams LV mass(C)sI 79.5 grams/m\S\2 CO(Teich) 8.1 l/min CI(Teich) 3.8 l/min/m\S\2 SV(Teich) 80.6 ml SI(Teich) 37.4 ml/m\S\2 CO(cubed) 8.7 l/min CI(cubed) 4.0 l/min/m\S\2 SV(cubed) 85.9 ml SI(cubed) 39.8 ml/m\S\2 Ao root diam 4.3 cm Ao root area 14.8 cm\S\2 ACS 1.9 cm asc Aorta Diam 3.9 cm LVOT diam 1.8 cm LVOT area 2.5 cm\S\2 LVAd ap4 24.8 cm\S\2 LVLd ap4 7.7 cm EDV(MOD-sp4) 65.0 ml LVAs ap4 11.3 cm\S\2 LVLs ap4 6.8 cm ESV(MOD-sp4) 17.0 ml EF(MOD-sp4) 73.8 % LVAd ap2 24.1 cm\S\2 LVLd ap2 7.9 cm EDV(MOD-sp2) 60.0 ml LVAs ap2 10.8 cm\S\2 LVLs ap2 6.4 cm ESV(MOD-sp2) 16.0 ml EF(MOD-sp2) 73.3 % CO(MOD-sp4) 4.8 l/min CI(MOD-sp4) 2.2 l/min/m\S\2 SV(MOD-sp4) 48.0 ml SI(MOD-sp4) 22.2 ml/m\S\2 CO(MOD-sp2) 4.4 l/min CI(MOD-sp2) 2.1 l/min/m\S\2 SV(MOD-sp2) 44.0 ml SI(MOD-sp2) 20.4 ml/m\S\2 Doppler Measurements and Calculations MV E max pasha 68.5 cm/sec MV A max pasha 111.7 cm/sec MV E/A 0.61 MV dec time 0.20 sec Ao V2 max 150.0 cm/sec Ao max PG 9.0 mmHg Ao max PG (full) 0.87 mmHg PAULINO(V,A) 2.4 cm\S\2 PAULINO(V,D) 2.4 cm\S\2 LV V1 max PG 8.1 mmHg LV V1 max 142.5 cm/sec PA V2 max 112.8 cm/sec PA max PG 5.1 mmHg
--- NOTE | 2016-07-21 15:37 | Progress Note ---
Internal Med Progress Note Date of Service: Jul 21, 2016. Provider Documentation: SUBJECTIVE: The patient was seen and examined Admitted with Chronic Cough H/O surgical procedure for Hiatal Hernia and Diaphragmatic paralysis Denies to have any COPD and or Asthma OBJECTIVE: Vital Signs-as noted below Exam: General-Minimal distress at rest Eyes-normal ENT-normal Neck-Supple Lungs-Decreased breath sound bilaterally Occasional crackles at the bases Heart-Regular Abdomen-Benign Extremities-tarce edema bilateral;ly Neuro-AAOx3 Lab data as noted below. ASSESSMENT & PLAN: Chronic Dry Cough Differential includes Interstitial Lung Disease,Acid reflux,Hiatal Hernia , component of COPD/Asthma or diaphragmatic paralysis Symptomatic treatment Prilosec 20mg BID - change to Protonix 40mg BID while inpatient Started on Zantac Continue Singulair and Vane Appreciate Pulmonary input Has been on small dose of Steroid,Bronchodilator Hypoxia possible Interstitial Lung Disease Chest CT obtained No significant change in scattered groundglass opacities and subpleural reticulation. No honeycombing or traction bronchiectasis. The findings may reflect interstitial lung disease with an NSIP pattern Continue supplemental O2, low dose solu-medrol, nebulizers A little better clinically Chest Pressure r/o ACS in the setting of CAD EKG suggests A. Flutter, though will obtain another as his rhythm seems regular Serial Noel are negative continue ASA ECHO::Ejection Fraction = >70 %. * There is mild concentric left ventricular hypertrophy. * Grade I diastolic dysfunction, (abnormal relaxation pattern). * No significant valvular pathology. Saw cardiology as outpatient on July 15 - recommendation to start low dose statin /b-yony; will need to discuss with patient DM2 well controlled last Ha1c = 7.1% diet-controlled should be started on an ARB (KENDRICK-I intolerance due to cough) SSI for now DVT ppx SCDs FULL CODE Vital Signs: Date Time Temp Pulse Resp B/P (MAP) Pulse Ox O2 Delivery O2 Flow Rate FiO2 07/21/16 14:57 36.7 108 18 152/72 (98) 91 Room Air 07/21/16 12:30 Room Air 07/21/16 11:36 36.3 110 20 121/72 (88) 91 07/21/16 11:23 111 16 92 Nasal Cannula 1.0 07/21/16 07:45 Nasal Cannula 2.0 07/21/16 07:24 37.0 103 18 156/92 (113) 97 07/21/16 07:04 101 16 96 Nasal Cannula 1.0 07/21/16 04:00 Nasal Cannula 2.0 07/21/16 04:00 36.5 101 18 151/94 (113) 95 1.5 07/21/16 00:00 Nasal Cannula 2.0 07/20/16 23:53 36.7 92 20 150/84 (106) 92 2.0 07/20/16 23:05 36.7 20 139/70 95 Nasal Cannula 2.0 07/20/16 22:01 81 22 139/70 94 07/20/16 21:31 81 22 139/70 94 Nasal Cannula 2.0 07/20/16 21:23 84 07/20/16 20:30 93 Nasal Cannula 2.0 07/20/16 20:25 83 Room Air 07/20/16 20:01 79 15 142/79 98 Nasal Cannula 2.0 07/20/16 19:31 75 22 144/78 95 Nasal Cannula 2.0 07/20/16 18:31 83 21 136/79 95 Nasal Cannula 2.0 07/20/16 18:01 87 24 154/87 95 Nasal Cannula 2.0 07/20/16 17:46 84 16 145/82 95 Nasal Cannula 2.0 07/20/16 17:19 88 07/20/16 16:54 92 Room Air 07/20/16 16:54 92 Room Air 07/20/16 16:38 36.7 99 18 143/85 90 Room Air Lab Results: Results Past 24 Hours Test 07/20/16 17:20 07/20/16 18:55 07/21/16 02:40 07/21/16 07:33 Range/Units White Blood Count 6.52 4.8-10.8 K/uL Red Blood Count 4.75 4.7-6.1 M/uL Hemoglobin 14.8 14.0-18.0 g/dL Hematocrit 44.3 42-52 % Mean Corpuscular Volume 93.3 80-100 fL Mean Corpuscular Hemoglobin 31.2 25-34 pg Mean Corpuscular Hemoglobin Concent 33.4 32-36 g/dl Platelet Count 229 130-400 K/uL Mean Platelet Volume 9.4 7.4-10.4 fL Neutrophils (%) (Auto) 60.4 % Lymphocytes (%) (Auto) 22.9 % Monocytes (%) (Auto) 11.2 % Eosinophils (%) (Auto) 4.9 % Basophils (%) (Auto) 0.3 % Neutrophils # (Auto) 3.94 1.4-6.5 K/uL Lymphocytes # (Auto) 1.49 1.2-3.4 K/uL Monocytes # (Auto) 0.73 0.11-0.59 K/uL Eosinophils # (Auto) 0.32 0-0.5 K/uL Basophils # (Auto) 0.02 0-0.2 K/uL RDW Standard Deviation 43.6 36.4-46.3 fL RDW Coefficient of Variation 12.7 11.5-14.5 % Immature Granulocyte % (Auto) 0.3 % Immature Granulocyte # (Auto) 0.02 0.00-0.02 K/uL D-Dimer 470 0-500 ug/L FEU Sodium Level 141 136-145 mmol/L Potassium Level 3.6 3.5-5.1 mmol/L Chloride Level 102 98-107 mmol/L Carbon Dioxide Level 31 21-32 mmol/L Anion Gap 8.0 3-11 mmol/L Blood Urea Nitrogen 16 7-18 mg/dl Creatinine 1.00 0.60-1.40 mg/dl Est Creatinine Clear Calc Drug Dose 77.6 ml/min Estimated GFR () 86.2 Estimated GFR (Non- 74.3 BUN/Creatinine Ratio 16.2 10-20 Random Glucose 161 70-99 mg/dl Calcium Level 8.5 8.5-10.1 mg/dl Total Bilirubin 0.3 0.2-1 mg/dl Aspartate Amino Transf (AST/SGOT) 56 15-37 U/L Alanine Aminotransferase (ALT/SGPT) 87 12-78 U/L Alkaline Phosphatase 55 45-117 U/L Troponin I < 0.015 < 0.015 0-0.045 ng/ml Pro-B-Type Natriuretic Peptide 125 0-900 pg/ml Total Protein 7.7 6.4-8.2 gm/dl Albumin 3.7 3.4-5.0 gm/dl Globulin 4.0 2.5-4.0 gm/dl Albumin/Globulin Ratio 0.9 0.9-2 Chemistry Specimen Hemolysis Urine Color YELLOW Urine Appearance CLEAR CLEAR Urine pH 7.0 4.5-7.5 Urine Specific [place] 1.021 1.000-1.030 Urine Protein NEG NEG Urine Glucose (UA) NEG NEG Urine Ketones NEG NEG Urine Occult Blood NEG NEG Urine Nitrite NEG NEG Urine Bilirubin NEG NEG Urine Urobilinogen NEG NEG Urine Leukocyte Esterase NEG NEG Prothrombin Time 10.3 9.0-12.0 SECONDS Prothromb Time International Ratio 1.0 0.9-1.1 Total Creatine Kinase 130 39-308 U/L Creatine Kinase MB 2.0 0.5-3.6 ng/ml Creatine Kinase MB Ratio 1.5 0-3.0 Bedside Glucose 239 70-99 mg/dl Test 07/21/16 11:14 07/21/16 11:37 Range/Units Total Creatine Kinase 147 39-308 U/L Creatine Kinase MB 2.4 0.5-3.6 ng/ml Creatine Kinase MB Ratio 1.6 0-3.0 Troponin I < 0.015 0-0.045 ng/ml Bedside Glucose 229 70-99 mg/dl
[2016-07-21] MEDS: INSULIN ASPART 100 UNITS/ML 3 ML PEN SC SCH ×2 (17:34→20:45)
[2016-07-21] MEDS: TAMSULOSIN HCL 0.4 MG CAP PO SCH (20:41)
[2016-07-22 04:06] VITALS: BP 150/68; PULSE 94; TEMP 36.8; O2SAT 96
[2016-07-22] MEDS: METHYLPREDNISOLONE IV 20 MG in SYRINGE 0 ML IV SCH ×2 (04:26→12:29)
[2016-07-22] MEDS: HEPARIN SOD 5000 UNIT/0.5 ML CARP SQ SCH ×2 (05:28→12:35)
[2016-07-22 05:49] LABS: HEMATOCRIT 41.9 % (42-52); MEAN CORPUSCULAR HEMOGLOBIN 32.9 pg (25-34); MEAN CORPUSCULAR HGB CONC 34.6 g/dl (32-36); MEAN PLATELET VOLUME 9.6 fL (7.4-10.4); PLATELET COUNT 225 K/uL (130-400); RED BLOOD COUNT 4.41 M/uL (4.7-6.1); WHITE BLOOD COUNT 12.72 K/uL (4.8-10.8)
[2016-07-22 06:29] LABS: BUN/CREATININE RATIO 23.1 (10-20); CALCIUM 8.8 mg/dl (8.5-10.1); CREATININE 1.1 mg/dl (0.60-1.40); POTASSIUM 4.3 mmol/L (3.5-5.1)
[2016-07-22 07:02] VITALS: BP 155/84; PULSE 96; TEMP 36.9; O2SAT 95
[2016-07-22] MEDS: LEVALBUTEROL 0.63MG/3 ML NEB INH SCH ×2 (07:17→15:32)
[2016-07-22] MEDS: IPRATROPIUM BROMIDE NEB SOLN 0.02% 2.5 ML VIAL INH SCH ×2 (07:17→15:32)
[2016-07-22 07:18] VITALS: PULSE 108; O2SAT 95
[2016-07-22] MEDS: CHLORTHALIDONE 25 MG TAB PO SCH (08:05)
[2016-07-22] MEDS: POTASSIUM CHLORIDE 10 MEQ TABCR PO SCH (08:05)
[2016-07-22] MEDS: ASPIRIN 325 MG ECTAB PO SCH (08:05)
[2016-07-22] MEDS: FLUOXETINE HCL 10 MG CAP PO SCH (08:06)
[2016-07-22] MEDS: AMLODIPINE BESYLATE 5 MG TAB PO SCH (08:06)
[2016-07-22] MEDS: MONTELUKAST SOD 10 MG TAB PO SCH (08:06)
[2016-07-22] MEDS: PANTOprazole SOD 40 MG TAB PO SCH (08:06)
[2016-07-22] MEDS: INSULIN ASPART 100 UNITS/ML 3 ML PEN SC SCH ×2 (08:10→12:26)
[2016-07-22 09:01] VITALS: Ht 172.7 cm; Wt 103.0 kg
--- NOTE | 2016-07-22 10:14 | Pulmonology Progress Note ---
Pulmonary Progress Note Date of Service Jul 22, 2016. Attending Dr. Rick Subjective Cough improved somewhat post cough syrup this AM. Has been ambulating throughout the room without dyspnea. Has not been ambulating throughout the hallways. No nocturnal dyspnea and dyspnea at rest has resolved. Denies any chest pain. He is anxious to go home to care for his . Does report h/o reflux which will "go into my lungs" when lying on the right side. Reports increase cough with Zantac. Objective 75-yo admitted through [facility] ER with several month history of progressive dyspnea , chest discomfort and acute exacerbation of chronic cough. Prior records were reviewed. PMHx includes: allergic rhinitis, asthma, CAD s/p balloon angioplasty, DM II, GERD, HLD, HTN, hiatal hernia, h/o fundoplication, h /o diverticulectomy of esophagus with esophagogastric fundoplasty and imbrication of diaphragm - thoracotomy (02/2013), sleep apnea (no tx) - dx 2012 , GG pulmonary nodule, and AAA. History notable for former tobacco and second hand smoke exposure as well as h/o asbestos exposure. Patient history notable for chronic daily dry cough. He had been seen by pulmonary as an outpatient and prescribed several inhalers as well as reflux and allergy control. Cough may be worse with dust and cold air exposure. In the ER CXR notable for trace bilateral pleural effusions with mild bilateral interstitial thickening (unchanged from prior exam). He was hypoxic 87% improved on 2LPM. His anti-reflux regimen was escalated and he was treated tih IV steroid and bronchodilators. CT Chest 07/20/16: mild dilation of the aorta (4.3cm) - stable. Stable mild esophageal dilation. Several mildly enlarged thoracic lymph nodes - slight increase in size. Index right hilar node: 1.4cm - short axis. Mild subpleural reticulation without honey combing - stable from 12/2015. Echocardiogram 07/21/16: EF > 70%, Grade I diastolic dysfunction. No significant valvular disease. Today: - 95-96% RA - Afebrile, HD stable, hypertensive - Current: methylprednisolone: 20mg Q8 - WBC/Hgb/Hct/Plts: 12.72/14.5/41.9/225 - Cr: 1.1 Physical Exam: Constitutional: WDWN obese elderly male sitting up in bed and ambulating throughout the room without limitation Head: + facial symmetry Mouth: moist mucous membranes. Mallampati IV. No erythema or exudate. Respiratory: non-labored respiration. Intermittent harsh cough on exam. No wheeze or stridor. Scant fine rale right base Cardiovascular: RRR. No MRG. Warm and perfused peripherally Abdomen: soft, active bowel sounds MSK/Extremities: moving and developed symmetrically. No peripheral edema. Neurologic: A&O. Good data recall. Appropriate affect. Assessment & Plan 1. 2-step prior to discharge 2. Modified barium swallow for chronic aspiration - can be done as an outpatient 3. PFTs as an outpatient and f/u with pulmonary medicine 4. CT chest 01/2017 - outpatient 5. Also recommended patient be evaluated by allergy and sleep medicine as an outpatient 6. Patient reports increased cough with ranitidine -recommend replace with famotidine in addition to PPI for severe acid reflux. 7. Transition to PO steroid - prednisone with tapering dose Data Medications: Current Inpatient Medications Medications (Trade) Dose Ordered Sig/Janet Route Start Time Stop Time Status Last Admin Dose Admin Ioversol (Optiray 320) 100 ml UD PRN IV 07/20/16 19:00 07/24/16 18:59 Heparin Sodium (Porcine) (Heparin Sq 5000 Unit/0.5ml) 5,000 unit Q8H SQ 07/21/16 06:00 08/20/16 05:59 07/22/16 05:28 5,000 UNIT Acetaminophen (Tylenol Tab) 650 mg Q4H PRN PO 07/20/16 21:15 08/19/16 21:14 Al Hydrox/Mg Hydrox/Simethicone (Maalox Max Susp) 15 ml Q4H PRN PO 07/20/16 21:15 08/19/16 21:14 Magnesium Hydroxide (Milk Of Magnesia Susp) 30 ml Q12H PRN PO 07/20/16 21:15 08/19/16 21:14 Ondansetron HCl (Zofran Inj) 4 mg Q6H PRN IV 07/20/16 21:15 08/19/16 21:14 Polyethylene (Miralax Powder Packet) 17 gm DAILY PRN PO 07/20/16 21:15 08/19/16 21:14 Methylprednisolone Sodium Succinate 20 mg/Syringe 0.32 ml @ 1.5 mls/min Q8H IV 07/21/16 04:00 08/20/16 03:59 07/22/16 04:26 1.5 MLS/MIN Amlodipine Besylate (Norvasc Tab) 5 mg DAILY PO 07/21/16 09:00 08/20/16 08:59 07/22/16 08:06 5 MG Aspirin (Ecotrin Tab) 325 mg DAILY PO 07/21/16 09:00 08/20/16 08:59 07/22/16 08:05 325 MG Chlorthalidone (Hygroton Tab) 25 mg DAILY PO 07/21/16 09:00 08/20/16 08:59 07/22/16 08:05 25 MG Fexofenadine HCl (Vane Tab) 180 mg DAILY PRN PO 07/20/16 21:15 08/19/16 21:14 Fluoxetine HCl (Prozac Cap) 10 mg DAILY PO 07/21/16 09:00 08/20/16 08:59 07/22/16 08:06 10 MG Montelukast Sodium (Singulair Tab) 10 mg DAILY PO 07/21/16 09:00 08/20/16 08:59 07/22/16 08:06 10 MG Ondansetron HCl (Zofran Tab) 4 mg Q6H PRN PO 07/20/16 21:15 08/19/16 21:14 Potassium Chloride (Klor-Con M10) 10 meq DAILY PO 07/21/16 09:00 08/20/16 08:59 07/22/16 08:05 10 MEQ Tamsulosin HCl (Flomax Cap) 0.4 mg HS PO 07/21/16 21:00 08/20/16 20:59 07/21/16 20:41 0.4 MG Pantoprazole Sodium (Protonix Tab) 40 mg BID PO 07/21/16 09:00 08/20/16 08:59 07/22/16 08:06 40 MG Finasteride (Proscar Tab) 5 mg DAILY@2100 PO 07/21/16 21:00 08/20/16 20:59 07/21/16 20:42 5 MG Ranitidine HCl (zANTac TAB) 150 mg DAILY@2100 PO 07/21/16 21:00 08/20/16 20:59 07/21/16 20:41 150 MG Hydrocodone Bit/ Homatropine Methylb (Hycodan Syrup) 5 ml Q6H PRN PO 07/21/16 10:00 08/04/16 09:59 07/22/16 09:36 5 ML Levalbuterol (Xopenex 0.63 Mg/ 3 Ml Neb) 0.63 mg Q8R INH 07/21/16 16:00 08/20/16 15:59 07/22/16 07:17 0.63 MG Ipratropium Agenda (Atrovent 0.02% 0.5MG/2.5ML Neb) 0.5 mg Q8R INH 07/21/16 16:00 08/20/16 15:59 07/22/16 07:17 0.5 MG Insulin Aspart (novoLOG ASPART) SLIDING SCALE G... ACHS SC 07/21/16 16:30 08/20/16 16:29 07/22/16 08:10 8 UNITS Vital Signs: Date Time Temp Pulse Resp B/P (MAP) Pulse Ox O2 Delivery O2 Flow Rate FiO2 07/22/16 07:45 Room Air 07/22/16 07:18 108 16 95 Room Air 07/22/16 07:02 36.9 96 22 155/84 (107) 95 Room Air 07/22/16 04:06 36.8 94 20 150/68 (95) 96 Room Air 07/22/16 04:00 Room Air 07/22/16 00:00 Room Air 07/21/16 23:23 36.8 103 20 156/66 (96) 90 Room Air 07/21/16 22:31 92 16 93 Room Air 07/21/16 20:10 Room Air 07/21/16 19:53 36.6 91 20 135/79 (97) 91 07/21/16 16:10 Room Air 07/21/16 15:25 111 16 92 Room Air 07/21/16 14:57 36.7 108 18 152/72 (98) 91 Room Air 07/21/16 12:30 Room Air 07/21/16 11:36 36.3 110 20 121/72 (88) 91 07/21/16 11:23 111 16 92 Nasal Cannula 1.0 Laboratory Results: Last 24 Hours Test 07/21/16 11:14 07/21/16 11:37 07/21/16 16:27 07/21/16 20:41 Total Creatine Kinase 147 U/L Creatine Kinase MB 2.4 ng/ml Creatine Kinase MB Ratio 1.6 Troponin I < 0.015 ng/ml Bedside Glucose 229 mg/dl 189 mg/dl 187 mg/dl Test 07/22/16 05:28 07/22/16 07:23 White Blood Count 12.72 K/uL Red Blood Count 4.41 M/uL Hemoglobin 14.5 g/dL Hematocrit 41.9 % Mean Corpuscular Volume 95.0 fL Mean Corpuscular Hemoglobin 32.9 pg Mean Corpuscular Hemoglobin Concent 34.6 g/dl RDW Standard Deviation 44.6 fL RDW Coefficient of Variation 12.8 % Platelet Count 225 K/uL Mean Platelet Volume 9.6 fL Sodium Level 139 mmol/L Potassium Level 4.3 mmol/L Chloride Level 99 mmol/L Carbon Dioxide Level 31 mmol/L Anion Gap 9.0 mmol/L Blood Urea Nitrogen 25 mg/dl Creatinine 1.10 mg/dl Est Creatinine Clear Calc Drug Dose 69.5 ml/min Estimated GFR () 76.8 Estimated GFR (Non- 66.2 BUN/Creatinine Ratio 23.1 Random Glucose 198 mg/dl Calcium Level 8.8 mg/dl Bedside Glucose 194 mg/dl
--- NOTE | 2016-07-22 11:22 | Progress Note ---
Internal Med Progress Note Date of Service: Jul 22, 2016. Provider Documentation: SUBJECTIVE: The patient was seen and examined Admitted with Chronic Cough H/O surgical procedure for Hiatal Hernia and Diaphragmatic paralysis Denies to have any COPD and or Asthma A little better but still has cough OBJECTIVE: Vital Signs-as noted below Exam: General-Minimal distress at rest Eyes-normal ENT-normal Neck-Supple Lungs-Decreased breath sound bilaterally Occasional crackles at the bases Heart-Regular Abdomen-Benign Extremities-trace edema bilaterally Neuro-AAOx3 Lab data as noted below. ASSESSMENT & PLAN: Chronic Dry Cough Differential includes Interstitial Lung Disease,Acid reflux,Hiatal Hernia , component of COPD/Asthma or diaphragmatic paralysis Symptomatic treatment Prilosec 20mg BID - change to Protonix 40mg BID while inpatient Started on Zantac Continue [place] and Vane Appreciate Pulmonary input and recommendation Has been on small dose of Steroid,Bronchodilator OP Modified Barium Swallow and Sleep study Hypoxia possible Interstitial Lung Disease Chest CT obtained No significant change in scattered groundglass opacities and subpleural reticulation. No honeycombing or traction bronchiectasis. The findings may reflect interstitial lung disease with an NSIP pattern Continue supplemental O2, low dose solu-medrol, nebulizers A little better clinically Repeat CT as advised Chest Pressure r/o ACS in the setting of CAD EKG suggests A. Flutter, though will obtain another as his rhythm seems regular Serial Noel are negative continue ASA ECHO::Ejection Fraction = >70 %. * There is mild concentric left ventricular hypertrophy. * Grade I diastolic dysfunction, (abnormal relaxation pattern). * No significant valvular pathology. Saw cardiology as outpatient on July 15 - recommendation to start low dose statin /b-yony; will need to discuss with patient DM2 well controlled last Ha1c = 7.1% diet-controlled should be started on an ARB (KENDRICK-I intolerance due to cough) SSI for now DVT ppx SCDs FULL CODE Disposition Discharge today Vital Signs: Date Time Temp Pulse Resp B/P (MAP) Pulse Ox O2 Delivery O2 Flow Rate FiO2 07/22/16 07:45 Room Air 07/22/16 07:18 108 16 95 Room Air 07/22/16 07:02 36.9 96 22 155/84 (107) 95 Room Air 07/22/16 04:06 36.8 94 20 150/68 (95) 96 Room Air 07/22/16 04:00 Room Air 07/22/16 00:00 Room Air 07/21/16 23:23 36.8 103 20 156/66 (96) 90 Room Air 07/21/16 22:31 92 16 93 Room Air 07/21/16 20:10 Room Air 07/21/16 19:53 36.6 91 20 135/79 (97) 91 07/21/16 16:10 Room Air 07/21/16 15:25 111 16 92 Room Air 07/21/16 14:57 36.7 108 18 152/72 (98) 91 Room Air 07/21/16 12:30 Room Air 07/21/16 11:36 36.3 110 20 121/72 (88) 91 07/21/16 11:23 111 16 92 Nasal Cannula 1.0 Lab Results: Results Past 24 Hours Test 07/21/16 11:37 07/21/16 16:27 07/21/16 20:41 07/22/16 05:28 Range/Units Bedside Glucose 229 189 187 70-99 mg/dl White Blood Count 12.72 4.8-10.8 K/uL Red Blood Count 4.41 4.7-6.1 M/uL Hemoglobin 14.5 14.0-18.0 g/dL Hematocrit 41.9 42-52 % Mean Corpuscular Volume 95.0 80-100 fL Mean Corpuscular Hemoglobin 32.9 25-34 pg Mean Corpuscular Hemoglobin Concent 34.6 32-36 g/dl RDW Standard Deviation 44.6 36.4-46.3 fL RDW Coefficient of Variation 12.8 11.5-14.5 % Platelet Count 225 130-400 K/uL Mean Platelet Volume 9.6 7.4-10.4 fL Sodium Level 139 136-145 mmol/L Potassium Level 4.3 3.5-5.1 mmol/L Chloride Level 99 98-107 mmol/L Carbon Dioxide Level 31 21-32 mmol/L Anion Gap 9.0 3-11 mmol/L Blood Urea Nitrogen 25 7-18 mg/dl Creatinine 1.10 0.60-1.40 mg/dl Est Creatinine Clear Calc Drug Dose 69.5 ml/min Estimated GFR () 76.8 Estimated GFR (Non- 66.2 BUN/Creatinine Ratio 23.1 10-20 Random Glucose 198 70-99 mg/dl Calcium Level 8.8 8.5-10.1 mg/dl Test 07/22/16 07:23 Range/Units Bedside Glucose 194 70-99 mg/dl
[2016-07-22 11:31] VITALS: BP 165/50; PULSE 94; TEMP 36.8; O2SAT 91
[2016-07-22] MEDS ORDERED: FAMO1TAB47 PO (12:06)
[2016-07-22] MEDS ORDERED: HYCUDL5 PO (12:06)
[2016-07-22] MEDS ORDERED: PRED10TA PO (12:06)
--- NOTE | 2016-07-22 12:11 | Discharge Instructions ---
Discharge Instructions Date of Service Jul 22, 2016. Admission Reason for Admission: Dyspnea, Hypoxia Discharge Discharge Diagnosis / Problem: Chronic Cough,Interstitial Lung disease Discharge Goals Goal(s): Prevent Disease Progression Activity Recommendations Activity Limitations: resume your previous activity . Instructions / Follow-Up Instructions / Follow-Up Dr Nicole (dr Chen is away) on 07/28/16 at 2:40PM. Will need appointment with Health Equipment Servicer and Sleep medicine.Please keep follow up appointment with Cooking Appliance Repair Technician.Modified Barium Swallow as an OP Current Hospital Diet Patient's current hospital diet: Diabetes Type 2 Diet Discharge Diet Recommended Diet: Diabetes Type 2 Diet Pending Studies Studies pending at discharge: no Medical Emergencies . Who to Call and When: Medical Emergencies: If at any time you feel your situation is an emergency, please call 911 immediately. . Non-Emergent Contact Non-Emergency issues call your: Primary Care Provider . Past History Medical & Surgical History: (1) Chronic cough (2) Allergic asthma (3) Hyperlipidemia (4) Hypertension (5) GERD (gastroesophageal reflux disease) (6) Epiphrenic diverticulum (7) DM type 2 (diabetes mellitus, type 2) (8) Anxiety (9) CAD (coronary artery disease) (10) H/o kidney stone removal (11) S/p removal of malignant lesion of colon (12) H/O coronary angioplasty (13) S/P thoracotomy . "Provider Documentation" section prepared by Petra Floyd. . VTE Core Measure Inpt VTE Proph given/why not?: Unfractionated heparin SQ
[2016-07-22 14:35] VITALS: BP 165/50; PULSE 94; TEMP 36.8; O2SAT 91
--- NOTE | 2016-07-22 14:41 | DIAGNOSTIC IMAGING REPORT ---
VIDEO SWALLOW HISTORY: Cough. ? Aspiration TECHNIQUE: Video fluoroscopic evaluation of swallowing was performed in the AP and lateral projections by the speech pathology staff. The patient is fed nectar-thick and thin liquid barium, a barium coated wafer, and barium pudding. FLUOROSCOPY TIME: 1.5 minutes. COMPARISON STUDY: None. FINDINGS: There is normal hyoid excursion and epiglottic deflection. No significant penetration or aspiration identified. Swallowing function is within normal limits. Note is made of a prominent cricopharyngeus impression. IMPRESSION: 1. No aspiration identified. 2. Please see the speech pathologist report for detailed findings and recommendations. Electronically signed by: Vinay Manley M.D. 07/22/2016 2:39 PM Dictated Date/Time: 07/22/2016 2:38 PM
[2016-07-22 14:56] VITALS: BP 156/90; PULSE 94; TEMP 36.3; O2SAT 92
--- NOTE | 2016-07-23 07:58 | Discharge Summary ---
Discharge Summary Date of Service Jul 23, 2016. Discharge Summary Admission Date: Jul 20, 2016 at 21:12 Discharge Date: Jul 22, 2016 Principal Diagnosis: Chronic Cough,Interstitial Lung Disease Secondary Diagnoses/Problems: Please see H&P and Hospital Progress note Consultations: Pulmonary Medication Reconciliation New Medications: Prednisone Tab (Prednisone) 10 Mg Tab 10 MG PO UD for 12 Days, #30 TAB 4 po daily for 3 days,3 po daily for 3 dasy,2 po daily for 3 days and then 1 po daily for 3 days Famotidine (Famotidine) 20 Mg Tab 20 MG PO QAM for 30 Days, #30 TAB Hydrocodone/Homatropine (Hydromet 5-1.5 mg/5Ml) 5 Ml/Cup Syrp 5 ML PO Q6H PRN for Cough for 10 Days, #200 ML Continued Medications: Albuterol Hfa (Ventolin Hfa) 200 Puffs/00721 Mcg Aers 2-4 PUFFS INH Q6H, #1 INHALER Amlodipine Besylate (Amlodipine Besylate) 5 Mg Tab 5 MG PO DAILY, #30 Aspirin (Aspirin Ec) 325 Mg Tab 325 MG PO DAILY Chlorthalidone (Chlorthalidone) 25 Mg Tab 25 MG PO DAILY Fexofenadine Hcl (Vane Allergy) 180 Mg Tab 180 MG PO DAILY PRN for Allergies Finasteride (Finasteride) 5 Mg Tab 5 MG PO DAILY, #90 Fluoxetine HCl (Fluoxetine HCl) 20 Mg Cap 10 MG PO DAILY, #30 Montelukast Sodium (Singulair) 10 Mg Tab 10 MG PO DAILY, TAB Nitroglycerin (Nitrostat) 0.4 Mg Tab 0.4 MG UT UD PRN for Chest Pain, BTL Omeprazole (Prilosec) 20 Mg Capcr 20 MG PO BID, CAP Ondansetron Hcl (Zofran) 4 Mg Tab 4 MG PO Q6H PRN for Nausea, TAB Polyethylene (Miralax) 17 Gm Pow 17 GM PO DAILY PRN for Constipation Potassium Chloride Microencaps (Potassium Chloride Er) 10 Meq Tab 10 MEQ PO DAILY, #60 Tamsulosin Hcl (Flomax) 0.4 Mg Cap 0.4 MG PO HS, CAP Admission Information HPI (per Admitting provider): This is a 75 year old male with a PMH of CAD s/p balloon angioplasty with no stent, HTN, HLD, DM2, chronic dry cough, allergic rhinitis presented with worsening shortness of breath, dyspnea on exertion, chronic dry cough as per patient's son. Patient states that he's been following with Dr. Argueta of pulmonology who suggested he start inhalers for possible asthma - he tried using these, but the cough persisted, so he stopped using these. His lisinopril was stopped due to the dry cough. He has had hiatal hernia and complicated procedure/fundoplication to improve symptoms. States he gets acid reflux often. Also c/o intermittent chest pressure/pain on the L lower chest/LUQ abdomen. Presented to the ER; became slightly hypoxic even during conversation. Denies fevers/chills/nausea/vomiting/diarrhea. Past Medical/Surgical History Medical Problems: (1) Allergic asthma Status: Chronic (2) Allergic rhinitis Status: Chronic (3) Anxiety Status: Chronic (4) CAD (coronary artery disease) Status: Chronic (5) Depression Status: Chronic (6) DM type 2 (diabetes mellitus, type 2) Status: Chronic (7) Epiphrenic diverticulum Status: Chronic (8) GERD (gastroesophageal reflux disease) Status: Chronic (9) H/O malignant neoplasm of colon Status: Chronic (10) Hyperlipidemia Status: Chronic (11) Hypertension Status: Chronic (12) Lumbar disc disease Status: Chronic (13) Pulmonary nodule Status: Chronic (14) Suspected AAA Status: Chronic Surgical Problems: (1) H/O coronary angioplasty Permanent Comment: 12/2013- angioplasty of LAD Status: Chronic (2) H/o kidney stone removal Status: Chronic (3) S/p removal of malignant lesion of colon Status: Chronic (4) S/P thoracotomy Permanent Comment: 02/24/2013- diverticulectomy of esophagus thoracic approach, esophogastric fundoplasty, imbrication of diaphragm Status: Chronic Family History FH: cancer FATHER (lung CA) FH: emphysema MOTHER SISTER Social History Smoking Status: Never Smoker Drug Use: none Marital Status: Multi-Drug Resistant Organisms History of MDRO: No Allergies Coded Allergies: [place] Nut (Verified Allergy, Severe, [place] NUT = THROAT SWELLING, 01/24) Grass (Verified Allergy, Unknown, HAY FEVER, 07/20/16) Atenolol (Verified Adverse Reaction, Unknown, Cough, 07/20/16) Home Medications Scheduled Albuterol Hfa (Ventolin Hfa), 2-4 PUFFS INH Q6H Amlodipine Besylate (Amlodipine Besylate), 5 MG PO DAILY Aspirin (Aspirin Ec), 325 MG PO DAILY Chlorthalidone (Chlorthalidone), 25 MG PO DAILY Finasteride (Finasteride), 5 MG PO DAILY Fluoxetine HCl (Fluoxetine HCl), 10 MG PO DAILY Montelukast Sodium (Singulair), 10 MG PO DAILY Omeprazole (Prilosec), 20 MG PO BID Potassium Chloride Microencaps (Potassium Chloride Er), 10 MEQ PO DAILY Tamsulosin Hcl (Flomax), 0.4 MG PO HS Scheduled PRN Fexofenadine Hcl (Vane Allergy), 180 MG PO DAILY PRN for Allergies Nitroglycerin (Nitrostat), 0.4 MG UT UD PRN for Chest Pain Ondansetron Hcl (Zofran), 4 MG PO Q6H PRN for Nausea Polyethylene (Miralax), 17 GM PO DAILY PRN for Constipation Review of Systems Constitutional: No fever, No chills, No sweats, No weakness, No fatigue Respiratory: + cough, + shortness of breath, + dyspnea on exertion, No sputum, No wheezing, No dyspnea at rest, No hemoptysis Cardiovascular: + chest pain, + orthopnea, No PND, No edema, No claudication, No palpitations Abdomen: + pain (LUQ), + problem reported (+reflux), No nausea, No vomiting, No diarrhea, No constipation, No GI bleeding Musculoskeletal: + joint pain (chronic back pain), No muscle pain, No swelling , No calf pain Genitourinary - Male: No hematuria, No dysuria, No urinary frequency, No urinary urgency Neurologic: No weakness, No numbness/tingling, No vertigo, No balance problems Psychiatric: No depression symptoms, No anxiety, No insomnia Endocrine: No fatigue Hematologic / Lymphatic: No abnormal bleeding/bruising Integumentary: No rash Allergic / Immunologic: + environmental allergies, + seasonal allergies Physical Ex - H&P Physical Exam Vital Signs Date Time Temp Pulse Resp B/P (MAP) Pulse Ox O2 Delivery O2 Flow Rate FiO2 07/20/16 23:53 36.7 92 20 150/84 (106) 92 2.0 07/20/16 23:05 36.7 20 139/70 95 Nasal Cannula 2.0 07/20/16 22:01 81 22 139/70 94 07/20/16 21:31 81 22 139/70 94 Nasal Cannula 2.0 07/20/16 21:23 84 07/20/16 20:30 93 Nasal Cannula 2.0 07/20/16 20:25 83 Room Air 07/20/16 20:01 79 15 142/79 98 Nasal Cannula 2.0 07/20/16 19:31 75 22 144/78 95 Nasal Cannula 2.0 07/20/16 18:31 83 21 136/79 95 Nasal Cannula 2.0 07/20/16 18:01 87 24 154/87 95 Nasal Cannula 2.0 07/20/16 17:46 84 16 145/82 95 Nasal Cannula 2.0 07/20/16 17:19 88 07/20/16 16:54 92 Room Air 07/20/16 16:54 92 Room Air 07/20/16 16:38 36.7 99 18 143/85 90 Room Air General Appearance: no apparent distress Head: normocephalic, atraumatic Respiratory/Chest: chest non-tender, lungs clear, normal breath sounds, no respiratory distress, no accessory muscle use Cardiovascular: regular rate, rhythm, no edema, no gallop, no JVD, no murmur Abdomen/GI: normal bowel sounds, non tender, soft Back: no CVA tenderness, no muscle spasm Extremities/Musculoskelatal: normal capillary refill, no pedal edema Neurologic/Psych: psychology intern II-XII nml as tested, no motor/sensory deficits, alert, normal mood/affect, oriented x 3 Skin: normal color Lymphatic: no adenopathy Diagnostics - H&P Diagnostics Laboratory Results Results Past 24 Hours Test 07/20/16 17:20 07/20/16 18:55 Range/Units White Blood Count 6.52 4.8-10.8 K/uL Red Blood Count 4.75 4.7-6.1 M/uL Hemoglobin 14.8 14.0-18.0 g/dL Hematocrit 44.3 42-52 % Mean Corpuscular Volume 93.3 80-100 fL Mean Corpuscular Hemoglobin 31.2 25-34 pg Mean Corpuscular Hemoglobin Concent 33.4 32-36 g/dl Platelet Count 229 130-400 K/uL Mean Platelet Volume 9.4 7.4-10.4 fL Neutrophils (%) (Auto) 60.4 % Lymphocytes (%) (Auto) 22.9 % Monocytes (%) (Auto) 11.2 % Eosinophils (%) (Auto) 4.9 % Basophils (%) (Auto) 0.3 % Neutrophils # (Auto) 3.94 1.4-6.5 K/uL Lymphocytes # (Auto) 1.49 1.2-3.4 K/uL Monocytes # (Auto) 0.73 0.11-0.59 K/uL Eosinophils # (Auto) 0.32 0-0.5 K/uL Basophils # (Auto) 0.02 0-0.2 K/uL RDW Standard Deviation 43.6 36.4-46.3 fL RDW Coefficient of Variation 12.7 11.5-14.5 % Immature Granulocyte % (Auto) 0.3 % Immature Granulocyte # (Auto) 0.02 0.00-0.02 K/uL D-Dimer 470 0-500 ug/L FEU Sodium Level 141 136-145 mmol/L Potassium Level 3.6 3.5-5.1 mmol/L Chloride Level 102 98-107 mmol/L Carbon Dioxide Level 31 21-32 mmol/L Anion Gap 8.0 3-11 mmol/L Blood Urea Nitrogen 16 7-18 mg/dl Creatinine 1.00 0.60-1.40 mg/dl Est Creatinine Clear Calc Drug Dose 77.6 ml/min Estimated GFR () 86.2 Estimated GFR (Non- 74.3 BUN/Creatinine Ratio 16.2 10-20 Random Glucose 161 70-99 mg/dl Calcium Level 8.5 8.5-10.1 mg/dl Total Bilirubin 0.3 0.2-1 mg/dl Aspartate Amino Transf (AST/SGOT) 56 15-37 U/L Alanine Aminotransferase (ALT/SGPT) 87 12-78 U/L Alkaline Phosphatase 55 45-117 U/L Troponin I < 0.015 0-0.045 ng/ml Pro-B-Type Natriuretic Peptide 125 0-900 pg/ml Total Protein 7.7 6.4-8.2 gm/dl Albumin 3.7 3.4-5.0 gm/dl Globulin 4.0 2.5-4.0 gm/dl Albumin/Globulin Ratio 0.9 0.9-2 Chemistry Specimen Hemolysis Urine Color YELLOW Urine Appearance CLEAR CLEAR Urine pH 7.0 4.5-7.5 Urine Specific [place] 1.021 1.000-1.030 Urine Protein NEG NEG Urine Glucose (UA) NEG NEG Urine Ketones NEG NEG Urine Occult Blood NEG NEG Urine Nitrite NEG NEG Urine Bilirubin NEG NEG Urine Urobilinogen NEG NEG Urine Leukocyte Esterase NEG NEG Diagnostic Radiology CT OF THE CHEST WITH IV CONTRAST CLINICAL HISTORY: Cough and shortness of breath. COMPARISON STUDY: Chest CT December 27, 2015 and chest radiograph July 20, 2016. TECHNIQUE: Following IV administration of 120 mL of Optiray-320, helical axial images of the chest were obtained. Images were viewed in the axial, sagittal and coronal planes. IV contrast was administered without complication. CT DOSE: 585.57 mGy.cm FINDINGS: Mild dilatation of the ascending aorta, measuring 4.3 cm at the level the main pulmonary artery is unchanged. The heart is moderately enlarged. Extensive coronary artery calcification is present. There is no pericardial effusion. A left thoracotomy is noted. There are postsurgical findings at the gastroesophageal junction. A hiatal hernia or epiphrenic diverticulum is unchanged. Mild esophageal dilatation is unchanged. Several mildly enlarged thoracic lymph nodes have slightly increased since exam. An index right hilar node shown image 119 of 256 measures 1.4 cm in short axis diameter. It previously measured 1.2 cm. Index right paratracheal no measures 1 cm. No pneumothorax or pleural effusion is present. Multifocal groundglass opacities are noted. There is mild subpleural reticulation without honeycombing. There is no lobar consolidation. Central airways are patent. Visualized portions of the upper abdomen demonstrate fatty infiltration of the liver. IMPRESSION: 1. No significant change in scattered groundglass opacities and subpleural reticulation. No honeycombing or traction bronchiectasis. The findings may reflect interstitial lung disease with an NSIP pattern. 2. Stable mild dilatation of the ascending aorta. Moderate cardiomegaly with extensive coronary artery calcification. 3. No change in appearance of the esophagus with mild esophageal dilatation and a hiatal hernia/epiphrenic diverticulum. 4. Fatty liver. 5. Slight increase in mild mediastinal and right hilar lymphadenopathy. This is likely reactive although a follow-up chest CT in 6 months could be obtained. EKG Left axis deviation Pulmonary disease pattern Incomplete right bundle branch block Moderate voltage criteria for LVH, may be normal variant Impression - H&P Impression Assessment and Plan This is a 75 year old male with a PMH of CAD s/p balloon angioplasty with no stent, HTN, HLD, DM2, chronic dry cough, allergic rhinitis presented with worsening shortness of breath Chronic Dry Cough likely secondary to GERD patient with significant hiatal hernia s/p fundoplication surgery Prilosec 20mg BID - change to Protonix 40mg BID while inpatient started on Zantac patient also has allergic rhinitis and possible asthma - continue Singulair and Vane may need inhaler added - consulted pulmonology for further input will likely need outpatient PFTs Hypoxia possible Interstitial Lung Disease Chest CT obtained No significant change in scattered groundglass opacities and subpleural reticulation. No honeycombing or traction bronchiectasis. The findings may reflect interstitial lung disease with an NSIP pattern patient becoming hypoxic even during conversations no wheezing on exam continue supplemental O2, low dose solu-medrol, nebulizers pulmonary consultation obtained Chest Pressure r/o ACS in the setting of CAD EKG suggests A. Flutter, though will obtain another as his rhythm seems regular also c/o chest pressure on the L side will obtain echo, due to dyspnea on exertion and chest pressure trend cardiac enzymes monitor in tele continue ASA should be on a statin/b-yony - saw cardiology as outpatient on July 15 - recommendation to start low dose statin/b-yony; will need to discuss with patient DM2 well controlled last Ha1c = 7.1% diet-controlled should be started on an ARB (KENDRICK-I intolerance due to cough) DVT ppx SCDs FULL CODE Advanced Directives Existing Living Will: No Existing Power of Coil Tester: No VTE Prophylaxis VTE Risk Assessment Done? Y/N: Yes Risk Level: Moderate Physical Exam (per Admitting): General Appearance: no apparent distress Head: normocephalic, atraumatic Respiratory/Chest: chest non-tender, lungs clear, normal breath sounds, no respiratory distress, no accessory muscle use Cardiovascular: regular rate, rhythm, no edema, no gallop, no JVD, no murmur Abdomen/GI: normal bowel sounds, non tender, soft Back: no CVA tenderness, no muscle spasm Extremities/Musculoskelatal: normal capillary refill, no pedal edema Neurologic/Psych: psychology intern II-XII nml as tested, no motor/sensory deficits, alert , normal mood/affect, oriented x 3 Skin: normal color Lymphatic: no adenopathy Hospital Course Chronic Dry Cough Differential includes Interstitial Lung Disease,Acid reflux,Hiatal Hernia , component of COPD/Asthma or diaphragmatic paralysis Symptomatic treatment Prilosec 20mg BID - change to Protonix 40mg BID while inpatient Started on Zantac Continue Alina Appreciate Pulmonary input and recommendation Has been on small dose of Steroid,Bronchodilator OP Modified Barium Swallow and Sleep study Hypoxia possible Interstitial Lung Disease Chest CT obtained No significant change in scattered groundglass opacities and subpleural reticulation. No honeycombing or traction bronchiectasis. The findings may reflect interstitial lung disease with an NSIP pattern Continue supplemental O2, low dose solu-medrol, nebulizers A little better clinically Repeat CT as advised Chest Pressure r/o ACS in the setting of CAD EKG suggests A. Flutter, though will obtain another as his rhythm seems regular Serial Noel are negative continue ASA ECHO::Ejection Fraction = >70 %. * There is mild concentric left ventricular hypertrophy. * Grade I diastolic dysfunction, (abnormal relaxation pattern). * No significant valvular pathology. Saw cardiology as outpatient on July 15 - recommendation to start low dose statin /b-yony; will need to discuss with patient DM2 well controlled last Ha1c = 7.1% diet-controlled should be started on an ARB (KENDRICK-I intolerance due to cough) SSI for now DVT ppx SCDs FULL CODE Disposition Discharge today Total time spent on discharge = 35 minutes This includes examination of the patient, discharge planning, medication reconciliation, and communication with other providers. Discharge Instructions Date of Service Jul 22, 2016. Admission Reason for Admission: Dyspnea, Hypoxia Discharge Discharge Diagnosis / Problem: Chronic Cough,Interstitial Lung disease Discharge Goals Goal(s): Prevent Disease Progression Activity Recommendations Activity Limitations: resume your previous activity . Instructions / Follow-Up Instructions / Follow-Up Dr Nicole (dr Chen is away) on 07/28/16 at 2:40PM. Will need appointment with Pl Sql Programmer and Sleep medicine.Please keep follow up appointment with Transformer Inspector.Modified Barium Swallow as an OP Current Hospital Diet Patient's current hospital diet: Diabetes Type 2 Diet Discharge Diet Recommended Diet: Diabetes Type 2 Diet Pending Studies Studies pending at discharge: no Medical Emergencies . Who to Call and When: Medical Emergencies: If at any time you feel your situation is an emergency, please call 911 immediately. . Non-Emergent Contact Non-Emergency issues call your: Primary Care Provider . Past History Medical & Surgical History: (1) Chronic cough (2) Allergic asthma (3) Hyperlipidemia (4) Hypertension (5) GERD (gastroesophageal reflux disease) (6) Epiphrenic diverticulum (7) DM type 2 (diabetes mellitus, type 2) (8) Anxiety (9) CAD (coronary artery disease) (10) H/o kidney stone removal (11) S/p removal of malignant lesion of colon (12) H/O coronary angioplasty (13) S/P thoracotomy . "Provider Documentation" section prepared by Petra Floyd. . VTE Core Measure Inpt VTE Proph given/why not?: Unfractionated heparin SQ <Electronically signed by Petra Floyd M.D.> Signed: 07/22/16 1211 Additional Copies To Arminda Chen D.O.
[2016-07-23] MEDS ORDERED: FAMOTIDINE 20 MG TAB PO SCH (09:00)
== END 2016-07-22 16:40 | disposition home or self-care (01) | DRG 197 ==
LOC: C.EDB 16:37 → C.MED 21:12 → ENRESERV 21:52
PROVIDERS: ADMIT Family Medicine; ATTEND Internal Medicine
DX: J84.89 Other specified interstitial pulmonary diseases (principal); I24.9 Acute ischemic heart disease, unspecified; I48.92 Unspecified atrial flutter; R05 Cough; K21.9 Gastro-esophageal reflux disease without esophagitis; R09.02 Hypoxemia; K44.9 Diaphragmatic hernia without obstruction or gangrene; I11.9 Hypertensive heart disease without heart failure; J98.6 Disorders of diaphragm; E11.9 Type 2 diabetes mellitus without complications; J45.909 Unspecified asthma, uncomplicated; F32.9 Major depressive disorder, single episode, unspecified; I25.10 Atherosclerotic heart disease of native coronary artery without angina pectoris; N40.0 Benign prostatic hyperplasia without lower urinary tract symptoms; Z79.899 Other long term (current) drug therapy; Z79.82 Long term (current) use of aspirin; Z85.038 Personal history of other malignant neoplasm of large intestine; Z95.5 Presence of coronary angioplasty implant and graft; Z80.0 Family history of malignant neoplasm of digestive organs; Z82.5 Family history of asthma and other chronic lower respiratory diseases

== ENCOUNTER → 2016-08-04 | Outpatient (CLI) | payer OTHER ==
[~2016-08-04] MED LIST changes: -ALBU1AER9 INH; -CRS/10 PO; +FAMO1TAB47 PO; +FLUO20CA36 PO; -FLUO40CA8 PO; -FLUT220A INH; +HYCUDL5 PO; +NRV/5 PO; -NRV5 PO; -POTA-74 PO; +POTA10TA32 PO; +PRED10TA PO; +PRS5 PO; +VNTHFA/IN INH
--- NOTE | 2016-08-04 10:03 | DIAGNOSTIC IMAGING REPORT ---
DOUBLE CONTRAST BARIUM ESOPHAGRAM CLINICAL HISTORY: Gastric esophageal reflux disease. COMPARISON STUDY: Esophagram dated 07/20/2013. TECHNIQUE: A standard air contrast barium esophagram is performed. Multiple spot images of the esophagus are acquired both upright and prone. FINDINGS: The patient swallowed barium and the barium pill without difficulty. The mucosal pattern is normal. There is no evidence of intrinsic or extrinsic mass lesion. No aspiration was seen. The gastroesophageal junction distended normally. Gastroesophageal reflux was observed during the examination. A moderate hiatal hernia is identified. Fluoroscopy time: 1.1 minutes. Fluoroscopic images: 23 IMPRESSION: 1. The esophagus is normal in appearance. 2. Moderate hiatal hernia. 3. Gastroesophageal reflux was observed during the examination. Electronically signed by: Noel Quevedo M.D. 08/04/2016 10:01 AM Dictated Date/Time: 08/04/2016 9:21 AM
== END | disposition home or self-care (01) ==
LOC: C.RAD 08:26
PROVIDERS: ATTEND Family Medicine
DX: K21.9 Gastro-esophageal reflux disease without esophagitis (principal); R05 Cough; K44.9 Diaphragmatic hernia without obstruction or gangrene

== ENCOUNTER 2016-11-12 07:08 | Emergency (ER) | payer OTHER ==
[~2016-11-12] VITALS: Ht 172.7 cm; Wt 102.9 kg
[~2016-11-12 07:08] MED LIST changes: -PRED10TA PO
[2016-11-12 07:15] VITALS: TEMP 36.9; Ht 172.7 cm; Wt 102.9 kg
--- NOTE | 2016-11-12 07:30 | EMERGENCY ROOM VISIT NOTE ---
History Report prepared by Gigi: Lillie Gonzales Under the Supervision of: Dr. Noel Quevedo M.D. First contact with patient: 07:15 Chief Complaint: ABDOMINAL PAIN Stated Complaint: ABDOMINAL PAIN History of Present Illness The patient is a 75 year old male who presents to the Emergency Room with complaints of sudden lower abdominal pain that began this morning three hours ago. He rated his pain as a 10/10 in severity. The patient states that he was woken from sleep this morning with lower abdominal pain that radiates around to his back. He states that he has a history of kidney stones, but states that his pain feels different from a stone this morning. The patient states that he has had difficulty urinating over the past few days. He states that he did become nauseous and vomit prior to arrival. Per nursing staff the patient was given 500 ml NSS, 6 mg of Morphine, and 4 mg of Zofran for his discomfort. The patient states that this has helped to alleviate his pain and nausea. He additionally reports diaphoresis, but denies any shortness of breath or cough. Nursing staff reports that the patient wears nasal cannula oxygen at home, noting that he was not wearing oxygen last evening. Nursing staff states that the patient had an oxygen saturation of 70% on room air. The patient reports being on Prednisone currently. The patient denies any diarrhea, melena, or hematochezia. Source of History: patient, nursing staff Onset: three hours ago Position: abdomen (lower ) Symptom Intensity: 10/10 Timing: other (sudden) Modifying Factors (Relieving): other (morphine and zofran) Associated Symptoms: + nausea, + vomiting, + back pain, + urinary symptoms, No cough, No SOB, No melena, No hematochezia, No diarrhea Review of Systems See HPI for pertinent positives & negatives. A total of 10 systems reviewed and were otherwise negative. Past Medical & Surgical Medical Problems: (1) Allergic asthma (2) Allergic rhinitis (3) Anxiety (4) CAD (coronary artery disease) (5) Chronic cough (6) Depression (7) DM type 2 (diabetes mellitus, type 2) (8) Epiphrenic diverticulum (9) GERD (gastroesophageal reflux disease) (10) H/O malignant neoplasm of colon (11) Hyperlipidemia (12) Hypertension (13) Lumbar disc disease (14) Lumbar disc herniation with radiculopathy (15) Pulmonary nodule (16) Suspected AAA (17) Weakness of right lower extremity Surgical Problems: (1) H/O coronary angioplasty (2) H/o kidney stone removal (3) S/p removal of malignant lesion of colon (4) S/P thoracotomy Family History FH: cancer FATHER (lung CA) FH: emphysema MOTHER SISTER Social History Smoking Status: Never Smoker Drug Use: none Marital Status: Housing Status: lives with family Current/Historical Medications Scheduled Albuterol Hfa (Ventolin Hfa), 2-4 PUFFS INH Q6H Amlodipine Besylate (Amlodipine Besylate), 5 MG PO DAILY Aspirin (Aspirin Ec), 325 MG PO DAILY Chlorthalidone (Chlorthalidone), 25 MG PO DAILY Famotidine (Famotidine), 20 MG PO QAM Finasteride (Finasteride), 5 MG PO DAILY Fluoxetine HCl (Fluoxetine HCl), 20 MG PO DAILY Fluticasone Furoate-Vilanterol (Breo Ellipta), 1 PUFF INH DAILY Metformin Hcl (Glucophage), 500 MG PO BID Montelukast Sodium (Singulair), 10 MG PO DAILY Omeprazole (Prilosec), 20 MG PO BID Ondasetron Odt (Zofran Odt), 4 MG SL Q6H Potassium Chloride Microencaps (Potassium Chloride Er), 10 MEQ PO BID Prednisone Tab (Prednisone), 10 MG PO UD Rosuvastatin Calcium (Crestor), 20 MG PO HS Tamsulosin Hcl (Flomax), 0.4 MG PO HS Scheduled PRN Fexofenadine Hcl (Vane Allergy), 180 MG PO DAILY PRN for Allergies Nitroglycerin (Nitrostat), 0.4 MG UT UD PRN for Chest Pain Ondansetron Hcl (Zofran), 4 MG PO Q6H PRN for Nausea Oxycodone Ir (Roxicodone Ir), 1 TAB PO Q4H PRN for Pain Trazodone Hcl (Trazodone), 50 MG PO HS PRN for Sleep Allergies Coded Allergies: [place] Nut (Verified Allergy, Severe, MACADAMIA NUT = THROAT SWELLING, 01/24) Grass (Verified Allergy, Unknown, HAY FEVER, 07/20/16) Atenolol (Verified Adverse Reaction, Unknown, Cough, 07/20/16) Physical Exam Vital Signs Date Time Temp Pulse Resp B/P (MAP) Pulse Ox O2 Delivery O2 Flow Rate FiO2 11/12/16 09:19 84 18 160/80 94 Room Air 11/12/16 08:49 84 18 137/82 97 Nasal Cannula 2.0 11/12/16 07:47 97 16 147/75 97 Nasal Cannula 2.0 11/12/16 07:20 87 11/12/16 07:15 36.9 81 18 128/67 97 Room Air Physical Exam GENERAL: Patient is in no acute distress. HEENT: No acute trauma, normocephalic atraumatic, mucous membranes moist, no nasal congestion, no scleral icterus. NECK: No stridor, no adenopathy, no meningismus, trachea is midline. LUNGS: Clear to auscultation bilaterally, no wheeze, no rhonchi, breath sounds equal. HEART: Without murmurs gallops or rubs, regular rate and rhythm. ABDOMEN: Soft, nontender, bowel sounds positive, no hernias, no peritonitis. EXTREMITIES: No cyanosis or edema, full range of motion of all the joints without pain or difficulty, no signs for acute trauma. NEUROLOGIC: Oriented x 3, no acute motor or sensory deficits, no focal weakness. SKIN: No rash, no jaundice, no diaphoresis. Medical Decision & Procedures ER Provider Diagnostic Interpretation: Radiology results as stated below per my review and radiologist interpretation: CHEST ONE VIEW PORTABLE CLINICAL HISTORY: 75 years-old Male presenting with ABDOMINAL PAIN/GI. TECHNIQUE: Portable upright AP view of the chest was obtained. COMPARISON: 07/20/2016. FINDINGS: Atherosclerosis of the aortic arch. Apparent enlargement of the cardiac silhouette. Mildly low lung volumes with hypoventilatory changes. Minimal linear opacities may be present at the left lung base. No other focal infiltrate. No pleural effusion or pneumothorax. Osseous structures normal. Upper abdomen normal. IMPRESSION: 1. Mildly low lung volumes with hypoventilatory changes and likely minimal left basilar atelectasis. 2. Possible cardiomegaly, although this may be affected by AP technique. Electronically signed by: Simon Medina M.D. 11/12/2016 8:14 AM Dictated Date/Time: 11/12/2016 8:[address] SCAN OF THE ABDOMEN AND PELVIS WITHOUT IV CONTRAST CLINICAL HISTORY: Flank pain and hematuria. COMPARISON STUDY: No priors. TECHNIQUE: CT scan of the abdomen and pelvis is performed from the lung bases to the proximal femora. Images are reviewed in the axial, sagittal, and coronal planes. IV contrast was not administered for this examination as per the referring clinician. A dose lowering technique was utilized adhering to the principles of ALARA. CT DOSE: 1611.59 mGy.cm FINDINGS: Lung bases: The heart is mildly enlarged and without pericardial effusion. The coronary arteries are densely calcified. There is dependent scarring versus atelectasis. No airspace consolidation is seen typical for pneumonia and there is no pleural effusion. There is a moderate hiatal hernia. Liver: The unenhanced liver is normal in size, contour, and attenuation. There is no intrahepatic biliary ductal dilatation. Gallbladder: There are small calcified gallstones. There is no CT evidence of cholecystitis. Spleen: Normal in size and attenuation. Pancreas: The unenhanced pancreas is atrophic. Punctate calcifications are seen in the pancreatic head. Adrenal glands: Unremarkable. Kidneys: The unenhanced kidneys are atrophic. There is a 4 mm obstructing calculus in the distal right ureter at the level of L4-L5 seen on axial image #280. This causes mild right hydroureteronephrosis. An additional punctate nonobstructing calculus is seen in the right upper pole. No left renal calculi are identified and there is no left-sided hydronephrosis. Renovascular calcifications are observed. There is no evidence of contour deforming renal mass lesion. Abdominal vasculature: The abdominal aorta is normal in course and caliber noting advanced atherosclerotic calcification. Bowel: The small bowel and colon are normal in course and caliber. The appendix is well-visualized and normal. Peritoneum: There is no intraperitoneal free air or abdominal ascites. There is a small fat-containing umbilical hernia. Lymphadenopathy: None. Pelvic viscera: The bladder, prostate, and seminal vesicles are normal as visualized. Skeletal structures: The skeletal structures are osteopenic. Moderate lumbosacral spondylosis is observed. There are postoperative changes from L4 -L5 spinal fusion. No lytic or blastic lesions are seen. There are healed left-sided rib fractures. IMPRESSION: 1. There is a 4 mm obstructing calculus in the distal right ureter. This causes mild right hydroureteronephrosis. 2. An additional punctate nonobstructing calculus is present in the right kidney. 3. Cholelithiasis. 4. Cardiomegaly and hiatal hernia. 5. Additional findings as above. Electronically signed by: Noel Quevedo M.D. 11/12/2016 7:52 AM Dictated Date/Time: 11/12/2016 7:46 AM Laboratory Results 11/12/16 06:48 Red Blood Count 4.74, Mean Corpuscular Volume 90.9, Mean Corpuscular Hemoglobin 30.8, Mean Corpuscular Hemoglobin Concent 33.9, Mean Platelet Volume 9.7, Neutrophils (%) (Auto) 66.1, Lymphocytes (%) (Auto) 20.9, Monocytes (%) (Auto) 11.7, Eosinophils (%) (Auto) 0.5, Basophils (%) (Auto) 0.2, Neutrophils # (Auto ) 7.75, Lymphocytes # (Auto) 2.45, Monocytes # (Auto) 1.37, Eosinophils # (Auto ) 0.06, Basophils # (Auto) 0.02 11/12/16 06:48 Test 11/12/16 06:48 11/12/16 08:09 White Blood Count 11.72 K/uL (4.8-10.8) Red Blood Count 4.74 M/uL (4.7-6.1) Hemoglobin 14.6 g/dL (14.0-18.0) Hematocrit 43.1 % (42-52) Mean Corpuscular Volume 90.9 fL (80-100) Mean Corpuscular Hemoglobin 30.8 pg (25-34) Mean Corpuscular Hemoglobin Concent 33.9 g/dl (32-36) Platelet Count 206 K/uL (130-400) Mean Platelet Volume 9.7 fL (7.4-10.4) Neutrophils (%) (Auto) 66.1 % Lymphocytes (%) (Auto) 20.9 % Monocytes (%) (Auto) 11.7 % Eosinophils (%) (Auto) 0.5 % Basophils (%) (Auto) 0.2 % Neutrophils # (Auto) 7.75 K/uL (1.4-6.5) Lymphocytes # (Auto) 2.45 K/uL (1.2-3.4) Monocytes # (Auto) 1.37 K/uL (0.11-0.59) Eosinophils # (Auto) 0.06 K/uL (0-0.5) Basophils # (Auto) 0.02 K/uL (0-0.2) RDW Standard Deviation 42.3 fL (36.4-46.3) RDW Coefficient of Variation 12.7 % (11.5-14.5) Immature Granulocyte % (Auto) 0.6 % Immature Granulocyte # (Auto) 0.07 K/uL (0.00-0.02) Prothrombin Time 10.4 SECONDS (9.0-12.0) Prothromb Time International Ratio 1.0 (0.9-1.1) Activated Partial Thromboplast Time 21.4 SECONDS (21.0-31.0) Partial Thromboplastin Ratio 0.8 Anion Gap 7.0 mmol/L (3-11) Est Creatinine Clear Calc Drug Dose 76.5 ml/min Estimated GFR () 86.2 Estimated GFR (Non- 74.3 BUN/Creatinine Ratio 18.7 (10-20) Calcium Level 9.5 mg/dl (8.5-10.1) Total Bilirubin 0.5 mg/dl (0.2-1) Aspartate Amino Transf (AST/SGOT) 18 U/L (15-37) Alanine Aminotransferase (ALT/SGPT) 48 U/L (12-78) Alkaline Phosphatase 41 U/L (45-117) Troponin I < 0.015 ng/ml (0-0.045) Total Protein 7.2 gm/dl (6.4-8.2) Albumin 3.8 gm/dl (3.4-5.0) Globulin 3.4 gm/dl (2.5-4.0) Albumin/Globulin Ratio 1.1 (0.9-2) Lipase 100 U/L (73-393) Urine Color YELLOW Urine Appearance CLEAR (CLEAR) Urine pH 6.5 (4.5-7.5) Urine Specific [place] 1.025 (1.000-1.030) Urine Protein NEG (NEG) Urine Glucose (UA) 3+ (NEG) Urine Ketones TRACE (NEG) Urine Occult Blood 1+ (NEG) Urine Nitrite NEG (NEG) Urine Bilirubin NEG (NEG) Urine Urobilinogen NEG (NEG) Urine Leukocyte Esterase NEG (NEG) Urine WBC (Auto) 1-5 /hpf (0-5) Urine RBC (Auto) 5-10 /hpf (0-4) Urine Hyaline Casts (Auto) 0 /lpf (0-5) Urine Epithelial Cells (Auto) 5-10 /lpf (0-5) Urine Bacteria (Auto) NEG (NEG) Laboratory results reviewed by me. ECG Indication: abdominal pain Rate (beats per minute): 85 Rhythm: sinus rhythm Findings: nonspecific-ST abn (diffuse), PAC, no acute ischemic change, other ( LVH) ED Course 0716: The patient was evaluated in room B7. A complete history and physical exam was performed. 0910: I reevaluated the patient and he is resting comfortably. I discussed the exam findings with her and I discussed the treatment plan. He verbalized complete understanding and agreement. He is ready to go home. Medical Decision The patient is a 75 year old male who presents to the ED with complaints of lower abdominal pain. Differential diagnoses considered include Renal colic, intestinal colic, bowel obstruction, UTI, biliary colic, pancreatitis, diverticulitis, hernia, cardiac ischemia. There is a mild leukocytosis, this is likely consistent with his pain and stress. No worrisome anemia. Renal panel testing shows a mildly elevated blood sugar, no kidney failure. There was no hepatitis or pancreatitis. EKG shows a sinus rhythm with PACs, no acute ischemia. Cardiac enzyme testing times one is not consistent with acute cardiac injury. Chest x-ray does not show pneumonia, free air or CHF. Urinalysis shows some hematuria, no infection. Abdominal and pelvis CT shows a right ureteral stone and hydronephrosis. The patient had received morphine in route and this has controlled his pain. His nausea has been controlled by Zofran. The patient was reassured by his findings. He is being discharged home with a urine strainer. He will follow with urology. The patient was instructed to use oxycodone for severe pain, Zofran for nausea. He will stay hydrated. If he has fever, vomiting or uncontrolled pain, he will report back to the ER. [place] Drug Monitoring Program Search Results: patient reviewed within database, no issues identified Medication Reconcilliation Current Medication List: was personally reviewed by me Blood Pressure Screening Patient's blood pressure: Elevated blood pressure Blood pressure disposition: Elevated BP felt to be situational, Did not require urgent referral Impression Primary Impression: Renal colic Additional Impressions: Vomiting Hematuria Scribe Attestation The scribe's documentation has been prepared under my direction and personally reviewed by me in its entirety. I confirm that the note above accurately reflects all work, treatment, procedures, and medical decision making performed by me. Departure Information Dispostion Home / Self-Care Prescriptions Ondasetron Odt (ZOFRAN ODT) 4 Mg Tab 4 MG SL Q6H for Nausea, #12 TAB Prov: Noel Quevedo M.D. 11/12/16 Oxycodone Ir (Roxicodone Ir) 5 Mg Tab 1 TAB PO Q4H Y for Pain, #12 TAB Prov: Noel Quevedo M.D. 11/12/16 Referrals Arminda Chen D.OCharis (PCP) Forms Call Back Authorization, HOME CARE DOCUMENTATION FORM, IMPORTANT VISIT INFORMATION Patient Instructions My [facility] Additional Instructions oxy ir 1/2 to 1 tab as needed for severe pain may use motrin or tylenol for moderate pain zofran 1 tab every 6 hours for nausea stay hydrated strain all the urine for the stone return for fever, vomiting or worsening pain talk with urology today for an appt Problem Qualifiers
[2016-11-12 07:31] LABS: BASO % 0.2 %; BASO ABS # 0.02 K/uL (0-0.2); COMPLETE YES; EOS % 0.5 %; HEMATOCRIT 43.1 % (42-52); IG% 0.6 %; LYMPH % 20.9 %; LYMPH ABS # 2.45 K/uL (1.2-3.4); MEAN CELL VOLUME 90.9 fL (80-100); MEAN CORPUSCULAR HEMOGLOBIN 30.8 pg (25-34); MEAN CORPUSCULAR HGB CONC 33.9 g/dl (32-36); MEAN PLATELET VOLUME 9.7 fL (7.4-10.4); MONO % 11.7 %; NEUT % 66.1 %; PLATELET COUNT 206 K/uL (130-400); RED BLOOD COUNT 4.74 M/uL (4.7-6.1); WHITE BLOOD COUNT 11.72 K/uL (4.8-10.8)
[2016-11-12 07:37] LABS: PARTIAL THROMBOPLASTIN RATIO 0.8; PROTHROMBIN TIME (PATIENT) 10.4 SECONDS (9.0-12.0)
[2016-11-12 07:41] LABS: ALT/SGPT 48 U/L (12-78); BLOOD UREA NITROGEN 19 mg/dl (7-18); BUN/CREATININE RATIO 18.7 (10-20); CALCIUM 9.5 mg/dl (8.5-10.1); CARBON DIOXIDE 31 mmol/L (21-32); CHLORIDE 97 mmol/L (98-107); GLUCOSE 271 mg/dl (70-99); POTASSIUM 3.5 mmol/L (3.5-5.1); SODIUM 135 mmol/L (136-145)
[2016-11-12 07:46] LABS: ALB/GLOB RATIO 1.1 (0.9-2); ALKALINE PHOSPHATASE 41 U/L (45-117); AST/SGOT 18 U/L (15-37)
--- NOTE | 2016-11-12 07:53 | DIAGNOSTIC IMAGING REPORT ---
CT SCAN OF THE ABDOMEN AND PELVIS WITHOUT IV CONTRAST CLINICAL HISTORY: Flank pain and hematuria. COMPARISON STUDY: No priors. TECHNIQUE: CT scan of the abdomen and pelvis is performed from the lung bases to the proximal femora. Images are reviewed in the axial, sagittal, and coronal planes. IV contrast was not administered for this examination as per the referring clinician. A dose lowering technique was utilized adhering to the principles of ALARA. CT DOSE: 1611.59 mGy.cm FINDINGS: Lung bases: The heart is mildly enlarged and without pericardial effusion. The coronary arteries are densely calcified. There is dependent scarring versus atelectasis. No airspace consolidation is seen typical for pneumonia and there is no pleural effusion. There is a moderate hiatal hernia. Liver: The unenhanced liver is normal in size, contour, and attenuation. There is no intrahepatic biliary ductal dilatation. Gallbladder: There are small calcified gallstones. There is no CT evidence of cholecystitis. Spleen: Normal in size and attenuation. Pancreas: The unenhanced pancreas is atrophic. Punctate calcifications are seen in the pancreatic head. Adrenal glands: Unremarkable. Kidneys: The unenhanced kidneys are atrophic. There is a 4 mm obstructing calculus in the distal right ureter at the level of L4-L5 seen on axial image #280. This causes mild right hydroureteronephrosis. An additional punctate nonobstructing calculus is seen in the right upper pole. No left renal calculi are identified and there is no left-sided hydronephrosis. Renovascular calcifications are observed. There is no evidence of contour deforming renal mass lesion. Abdominal vasculature: The abdominal aorta is normal in course and caliber noting advanced atherosclerotic calcification. Bowel: The small bowel and colon are normal in course and caliber. The appendix is well-visualized and normal. Peritoneum: There is no intraperitoneal free air or abdominal ascites. There is a small fat-containing umbilical hernia. Lymphadenopathy: None. Pelvic viscera: The bladder, prostate, and seminal vesicles are normal as visualized. Skeletal structures: The skeletal structures are osteopenic. Moderate lumbosacral spondylosis is observed. There are postoperative changes from L4 -L5 spinal fusion. No lytic or blastic lesions are seen. There are healed left-sided rib fractures. IMPRESSION: 1. There is a 4 mm obstructing calculus in the distal right ureter. This causes mild right hydroureteronephrosis. 2. An additional punctate nonobstructing calculus is present in the right kidney. 3. Cholelithiasis. 4. Cardiomegaly and hiatal hernia. 5. Additional findings as above. Electronically signed by: Noel Quevedo M.D. 11/12/2016 7:52 AM Dictated Date/Time: 11/12/2016 7:46 AM
[2016-11-12] MEDS ORDERED: PRED10TA PO (07:58)
[2016-11-12] MEDS ORDERED: ROSU20TA PO (07:59)
[2016-11-12] MEDS ORDERED: FLUT1INH INH (07:59)
[2016-11-12] MEDS ORDERED: GLC/500 PO (08:02)
[2016-11-12] MEDS ORDERED: TRAZ50TA35 PO (08:02)
--- NOTE | 2016-11-12 08:16 | DIAGNOSTIC IMAGING REPORT ---
CHEST ONE VIEW PORTABLE CLINICAL HISTORY: 75 years-old Male presenting with ABDOMINAL PAIN/GI. TECHNIQUE: Portable upright AP view of the chest was obtained. COMPARISON: 07/20/2016. FINDINGS: Atherosclerosis of the aortic arch. Apparent enlargement of the cardiac silhouette. Mildly low lung volumes with hypoventilatory changes. Minimal linear opacities may be present at the left lung base. No other focal infiltrate. No pleural effusion or pneumothorax. Osseous structures normal. Upper abdomen normal. IMPRESSION: 1. Mildly low lung volumes with hypoventilatory changes and likely minimal left basilar atelectasis. 2. Possible cardiomegaly, although this may be affected by AP technique. Electronically signed by: Simon Medina M.D. 11/12/2016 8:14 AM Dictated Date/Time: 11/12/2016 8:13 AM
[2016-11-12 08:25] LABS: MANUAL MICROSCOPIC REQUIRED? NO; REVIEW REQ? NO; URINE APPEARANCE CLEAR (CLEAR); URINE BILIRUBIN NEG (NEG); URINE COLOR YELLOW; URINE NITRITE NEG (NEG); URINE PH 6.5 (4.5-7.5); URINE SPECIFIC GRAVITY 1.025 (1.000-1.030); UROBILINOGEN NEG (NEG); ZZUR CULT IF INDIC CLEAN CATCH NO
[2016-11-12 09:19] VITALS: BP 160/80; PULSE 84; O2SAT 94
[2016-11-12] MEDS ORDERED: ONDA4TAB10 SL (09:21)
[2016-11-12] MEDS ORDERED: OXYC1TAB3 PO (09:21)
== END 2016-11-12 09:29 | disposition home or self-care (01) ==
LOC: EDBD 07:08 → C.EDB 07:09
DX: N23 Unspecified renal colic (principal); R11.10 Vomiting, unspecified; R31.9 Hematuria, unspecified; J45.909 Unspecified asthma, uncomplicated; F41.9 Anxiety disorder, unspecified; I25.10 Atherosclerotic heart disease of native coronary artery without angina pectoris; F32.9 Major depressive disorder, single episode, unspecified; E11.9 Type 2 diabetes mellitus without complications; K21.9 Gastro-esophageal reflux disease without esophagitis; Z85.038 Personal history of other malignant neoplasm of large intestine; E78.5 Hyperlipidemia, unspecified; I10 Essential (primary) hypertension; M51.26 Other intervertebral disc displacement, lumbar region; Z80.9 Family history of malignant neoplasm, unspecified; Z83.6 Family history of other diseases of the respiratory system; Z79.82 Long term (current) use of aspirin; Z79.899 Other long term (current) drug therapy

== ENCOUNTER → 2017-02-22 | Day surgery (SDC) | payer OTHER ==
[2017-02-16 08:15] VITALS: Ht 172.7 cm; Wt 101.4 kg
[~2017-02-22] VITALS: Ht 172.7 cm; Wt 101.4 kg
[~2017-02-22] MED LIST changes: -FAMO1TAB47 PO; +FAMO20TA11 PO; +FLUO10CA48 PO; -FLUO20CA36 PO; +FLUO40CA8 PO; +FLUT1INH INH; +GLC/500 PO; -HYCUDL5 PO; +LIDOCAINE HCL 2% 2 ML VIAL (20MG/ML) ONE; -MRLP17X PO; +OXGN; +PRED10TA PO; +PROPOFOL IV EMULSION 10 MG/ML 20 ML VIAL IV ONE; +RANI150T3 PO; +ROSU20TA PO; +SITA50TA3 PO; +TRAZ50TA35 PO
--- NOTE | 2017-02-22 08:35 | Endo History and Physical ---
History & Physical Date of Service: Feb 22, 2017. Chief Complaint: History of polyp Referring Physician: Gustavo History of Present Illness h/o Polyp Past Medical History Hypertension, Depression Past Surgical History Hx Cardiac Surgery: Yes (HEART CATH, STENT X1) Hx Internal Defibrillator: No Hx Pacemaker: No Hx Abdominal Surgery: Yes (ESOPHAGEAL AND STOMACH SURGERY "FIXED THE BLOW OUT") Hx of Implantable Prosthesis: No Hx Post-Op Nausea and Vomiting: No Hx Cancer Surgery: Yes (COLON POLYP REMOVAL) Hx Thoracic Surgery: Yes (LT LUNG DIAPHRAGM REPAIR) Hx Orthopedic: No Hx Urinary Tract Surgery: No Family History None Social History Smoking Status: Never Smoker Hx Substance Use: No Hx Alcohol Use: No Allergies Coded Allergies: [place] Nut (Verified Allergy, Severe, [place] NUT = THROAT SWELLING, 02/16) Grass (Verified Allergy, Unknown, HAY FEVER, 02/16/17) Atenolol (Verified Adverse Reaction, Unknown, Cough, 02/16/17) Current Medications Reported Home Medications Medications Dose Route/Sig Max Daily Dose Days Date Category Dose Instructions Oxygen Gas 2.5 Liters NA CONTINOUS 02/16/17 Reported Zantac (Ranitidine HCl) 150 Mg Tab 150 Mg PO HS 02/16/17 Reported Pepcid (Famotidine) 20 Mg Tab 20 Mg PO QAM 02/16/17 Reported Januvia (Sitagliptin) 50 Mg Tab 50 Mg PO QAM 02/16/17 Reported Prozac (Fluoxetine HCl) 10 Mg Cap 10 Mg PO QAM 02/16/17 Reported Prozac (Fluoxetine Hcl) 40 Mg Cap 40 Mg PO QAM 02/16/17 Reported Glucophage (Metformin Hcl) 500 Mg Tab 500 Mg PO BID 11/12/16 Reported Trazodone (Trazodone HCl) 50 Mg Tab 50 Mg PO HS PRN 11/12/16 Reported Crestor (Rosuvastatin Calcium) 20 Mg Tab 20 Mg PO HS 11/12/16 Reported Breo Ellipta (Fluticasone Furoate-Vilanterol) 1 Inh Inh 1 Puff INH DAILY PRN 11/12/16 Reported Prednisone 10 Mg Tab 10 Mg PO UD 11/12/16 Reported TAPERED DOSE. STARTED AT 40MG DAILY. DOWN TO 15MG DAILY. STARTED 11/06/16 Ventolin Hfa (Albuterol) 200 Puffs/57214 Mcg Aers 2-4 Puffs INH Q6H PRN 07/20/16 Reported Potassium Chloride Er (Potassium Chloride Microencaps) 10 Meq Tab 1 Tab PO QAM 07/20/16 Reported Amlodipine Besylate 5 Mg Tab 5 Mg PO QAM 07/20/16 Reported Finasteride 5 Mg Tab 5 Mg PO HS 07/20/16 Reported Aspirin Ec (Aspirin) 325 Mg Tab 325 Mg PO QAM 03/11/15 Reported Nitrostat (Nitroglycerin) 0.4 Mg Tab 0.4 Mg UT UD PRN 03/11/15 Reported Zofran (Ondansetron HCl) 4 Mg Tab 4 Mg PO Q6H PRN 03/11/15 Reported Prilosec (Omeprazole) 20 Mg Capcr 20 Mg PO BID 02/13/15 Reported Singulair (Montelukast Sodium) 10 Mg Tab 10 Mg PO HS 02/13/15 Reported Vane Allergy (Fexofenadine Hcl) 180 Mg Tab 180 Mg PO QAM 01/01/14 Reported Chlorthalidone 25 Mg Tab 25 Mg PO QAM 01/01/14 Reported Flomax (Tamsulosin Hcl) 0.4 Mg Cap 0.4 Mg PO HS 01/01/14 Reported Vital Signs Weight (Kilograms): 101.36 Height (Feet): 5 Height (Inches): 8 Date Time Temp Pulse Resp B/P (MAP) Pulse Ox O2 Delivery O2 Flow Rate FiO2 02/22/17 08:20 36.4 105 22 165/94 (117) 97 Nasal Cannula 2 Physical Exam General Appearance: WD/WN Respiratory/Chest: Auscultation: breath sounds normal Cardiovascular: Heart Auscultation: RRR Abdomen: Inspection & Palpation: soft Assessment and Plan H/o polyps - cscopy
--- NOTE | 2017-02-22 09:16 | Anesthesiology Progress Note ---
Anesthesia Post Op Note Date & Time Feb 22, 2017 at 09:16 Vital Signs Pain Intensity: 0 Vital Signs Past 12 Hours Date Time Temp Pulse Resp B/P (MAP) Pulse Ox O2 Delivery O2 Flow Rate FiO2 02/22/17 09:08 89 26 115/51 (72) 98 Nasal Cannula 2 02/22/17 08:20 36.4 105 22 165/94 (117) 97 Nasal Cannula 2 Notes Mental Status: alert / awake / arousable, participated in evaluation Pt Amnestic to Procedure: Yes Nausea / Vomiting: adequately controlled Pain: adequately controlled Airway Patency, RR, SpO2: stable & adequate BP & HR: stable & adequate Hydration State: stable & adequate Anesthetic Complications: no major complications apparent
--- NOTE | 2017-02-22 09:18 | GI REPORT ---
Procedure Date: 02/22/2017 8:13 AM Procedure: Colonoscopy Indications: High risk colon cancer surveillance: Personal history of colonic polyps Medicines: General Anesthesia Complications: No immediate complications. Estimated Blood Loss: Estimated blood loss: none. Procedure: Pre-Anesthesia Assessment: - ASA Grade Assessment: III - A patient with severe systemic disease. After I obtained informed consent, the scope was passed under direct vision. Throughout the procedure, the patient's blood pressure, pulse, and oxygen saturations were monitored continuously. The On-site loaner was introduced through the anus and advanced to the terminal ileum. The colonoscopy was performed without difficulty. The patient tolerated the procedure well. The quality of the bowel preparation was fair. Findings: The perianal and digital rectal examinations were normal. Multiple small and large-mouthed diverticula were found in the sigmoid colon and descending colon. Four sessile polyps were found in the rectum, transverse colon and ascending colon. The polyps were 2 to 4 mm in size. These polyps were removed with a cold snare. Resection and retrieval were complete. IC valve was lipomatous. There was a small non bleeding AVM in the ascending colon. Internal hemorrhoids were found during retroflexion. The hemorrhoids were moderate. Impression: - Preparation of the colon was fair. - Diverticulosis in the sigmoid colon and in the descending colon. - Four 2 to 4 mm polyps in the rectum, in the transverse colon and in the ascending colon, removed with a cold snare. Resected and retrieved. - AVM. - Internal hemorrhoids. Recommendation: - Given comorbidities and age, would consider d/c CRC surveillance. Hold NSAIDs x 1 week. - Discharge patient to home. Lonny Cortes M.D. Lonny Cortes MD 02/22/2017 9:17:30 AM This report has been signed electronically. Note Initiated On: 02/22/2017 8:13 AM I attest to the content of the Intraoperative Record and orders documented therein, exceptions below
--- NOTE | 2017-02-22 09:26 | Discharge Instructions ---
Endoscopy Patient Instructions Date / Procedure(s) Performed Feb 22, 2017. Colonoscopy Allergy Information Coded Allergies: [place] Nut (Verified Allergy, Severe, MACADAMIA NUT = THROAT SWELLING, 02/16) Grass (Verified Allergy, Unknown, HAY FEVER, 02/16/17) Atenolol (Verified Adverse Reaction, Unknown, Cough, 02/16/17) Discharge Date / Findings Feb 22, 2017. Mult polyps, Diverticulosis, AVM. Fair prep. Medication Instructions Hold ASA, NSAIDs x 3 days Provider Instructions Activity Restrictions - No exercising or heavy lifting for 24 hours. - Do not drink alcohol the day of the procedure. - Do not drive a car or operate machinery until the day after the procedure. - Do not make any important decisions or sign important papers in 24 hours after the procedure. Following Day: - Return to full activity which may include returning to work/school. Diet Start your diet with liquids and light foods (jello, soup, juice, toast). Then eat your usual diet if not nauseated. Treatment For Common After Affects For mild abdominal pain, bloating, or excessive gas: - Rest - Eat lightly - Lie on right side Follow-Up Information Follow-up with Gustavo as scheduled Anesthesia Information What You Should Know You have had a procedure that required some medicine to reduce anxiety and discomfort. This treatment is called moderate sedation. After receiving the treatment, you may be sleepy, but you will be able to breathe on your own. The effects of the treatment may last for several hours. Follow these instructions along with Activity/Diet recommendations noted above: * Do NOT do anything where dizziness or clumsiness would be dangerous. * Rest quietly at home today, then you can be up and about tomorrow. * Have a responsible person stay with you the rest of today. * You may have had an I.V. today. If so, you may take the dressing off later today. Recommendations Call your doctor if: * Trouble breathing * Continuous vomiting for more than 24 hours * Temperature above 101 degrees * Severe abdominal pain or bloating * Pain not relieved by pain medicine ordered * There is increased drainage or redness from any incision * A large amount of rectal bleeding greater than 2-3 tablespoons. (If you had a polyp/s removed or have hemorrhoids, a small amount of blood - from the rectum is to be expected.) * You have any unanswered questions or concerns. IN THE EVENT OF A SERIOUS EMERGENCY, GO TO THE NEAREST EMERGENCY ROOM Your discharge instructions were prepared by provider Lonny Prince. Patient Instructions Signature Page Beverley Cordova Patient (or Guardian) Signature/Date: I have read and understand the instructions given to me by my caregivers. Caregiver/RN/Doctor Signature/Date: The above-named patient and/or guardian has received patient instructions on this date. + Original Patient Signature Page (only) stays with chart. Please make copy for patient.
[2017-02-22 09:38] VITALS: BP 155/82; PULSE 76; O2SAT 99
== END | disposition home or self-care (01) ==
LOC: C.GI 07:49
PROVIDERS: ATTEND Internal Medicine Gastroenterology
DX: Z12.11 Encounter for screening for malignant neoplasm of colon (principal); Z86.010 Personal history of colon polyps; K57.30 Diverticulosis of large intestine without perforation or abscess without bleeding; D12.2 Benign neoplasm of ascending colon; D12.3 Benign neoplasm of transverse colon; D12.8 Benign neoplasm of rectum; K64.8 Other hemorrhoids; Q43.9 Congenital malformation of intestine, unspecified; I10 Essential (primary) hypertension; E11.9 Type 2 diabetes mellitus without complications; J45.909 Unspecified asthma, uncomplicated; K21.9 Gastro-esophageal reflux disease without esophagitis; F32.9 Major depressive disorder, single episode, unspecified; E66.9 Obesity, unspecified; Z68.34 Body mass index [BMI] 34.0-34.9, adult; Z79.84 Long term (current) use of oral hypoglycemic drugs; Z79.899 Other long term (current) drug therapy

== ENCOUNTER 2018-11-16 17:19 | Inpatient (IN) ==
[2018-11-16 18:39] LABS: Basophils # (auto) 0.01 K/uL (0-0.2); Basophils % (auto) 0.1 %; Eosinophils # (auto) 0.06 K/uL (0-0.5); Eosinophils % (auto) 0.6 %; Hematocrit (blood only) 37.9 % (42-52); Hemoglobin 12.8 g/dL (14.0-18.0); Immature Granulocytes # (auto) 0.07 K/uL (0.00-0.02); Immature Granulocytes % (auto) 0.6 %; Lymphocytes # (auto) 0.91 K/uL (1.2-3.4); Lymphocytes % (auto) 8.4 %; Mean Corpuscular Hemoglobin 32.3 pg (25-34); Mean Corpuscular Hgb Conc 33.8 g/dL (32-36); Mean Corpuscular Volume 95.7 fL (80-100); Mean Platelet Volume 9.9 fL (7.4-10.4); Monocytes # (auto) 0.85 K/uL (0.11-0.59); Monocytes % (auto) 7.9 %; Neutrophils # (auto) 8.89 K/uL (1.4-6.5); Neutrophils % (auto) 82.4 %; Platelet Count 207 K/uL (130-400); RDW Coefficient of Variation 13.1 % (11.5-14.5); RDW Standard Deviation 45.2 fL (36.4-46.3); Red Blood Count 3.96 M/uL (4.7-6.1); White Blood Count 10.79 K/uL (4.8-10.8)
[2018-11-16 18:45] LABS: Partial Thromboplastin Ratio 0.8; Partial Thromboplastin Time 22.2 Seconds (21.0-31.0); Prothrombin Time 10.3 Seconds (9.0-12.0)
[2018-11-16 18:46] LABS: Albumin Level 3.8 gm/dl (3.4-5.0); Calcium 9.2 mg/dl (8.5-10.1); Creatinine Clr Calc Pharmacy 51.3 ml/min; Est GFR (African American) 55.2; Est GFR (Non-African American) 47.6; Magnesium 1.9 mg/dl (1.8-2.4); Potassium 4.6 mmol/L (3.5-5.1)
[2018-11-16 18:57] LABS: Albumin Globulin Ratio 1.2 (0.9-2); Bilirubin,Total 0.4 mg/dl (0.2-1); Globulin 3.2 gm/dl (2.5-4.0); Thyroid Stimulating Hormone 1.25 uIu/ml (0.300-4.500); Troponin I 0.036 ng/ml (0-0.045)
--- NOTE | 2018-11-16 19:15 | XRay Report ---
XR chest 1V portable HISTORY: Shortness of breath. COMPARISON: Chest 01/24/2018. FINDINGS: No pneumothorax. Trace bilateral pleural effusions and mild congestive change persists. Lef t basilar linear densities are unchanged. The heart remains enlarged. There are low lung volumes. IMPRESSION: Cardiomegaly with mild congestive change and trace bilateral pleural effusions. This is similar to th e prior study. Left basilar linear densities also persist and may represent atelectasis or pneumonia. Electronically signed by: Jorge Ahmadi M.D. 11/16/2018 7:13 PM
[2018-11-16 19:43] LABS: Appearance Urine Clear (Clear); Bilirubin Urine Negative (Negative); Blood Urine Negative (Negative); Color Urine Yellow; Glucose Urine UA Negative (Negative); Ketones Urine Negative (Negative); Leukocyte Esterase Urine Negative (Negative); Nitrite Urine Negative (Negative); Protein Urine Negative (Negative); Specific Gravity Urine 1.011 (1.000-1.030); Urobilinogen Urine Negative (Negative); pH Urine 6.5 (4.5-7.5)
[2018-11-16] MEDS ORDERED: MoRPHine SULFATE CR 15 MG TABCR PO STA (21:01)
[2018-11-16] MEDS ORDERED: MAGNESIUM SULFATE / D5W 1 GM/100 ML BAG IV ONE (21:20)
[2018-11-16] MEDS ORDERED: ALBUMIN 25% 50 ML with FUROSEMIDE 40 MG IV ONE (21:50)
[2018-11-16 21:52] LABS: Base Excess ABG 5.9 mEq/L (-9-1.8); HCO3 ABG 31 mmol/L (19-24); Oxygen Saturation ABG 98.4 % (90-95); PCO2 ABG 47 mmHg (35-46); PO2 ABG 114 mm/Hg (80-95); pH ABG 7.44 (7.35-7.45)
[2018-11-16 21:53] LABS: Allen Test Pos (Pos)
[2018-11-16] MEDS ORDERED: Heparin IV Standard *NO* Bolus IV SCH (22:40)
--- NOTE | 2018-11-16 22:47 | History & Physical Report ---
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 fib Lasix albumin for pulmonary congestion in the setting of kidney dysfunction Baseline UA, monitor renal function; hold spironolactone and home diuretic Rx until creatinine at baseline Basal insulin, ISS BG goal 1 40-1 80, update hemoglobin A1c DVT prophylaxis. Heparin Full code History of Present Illness Chief Complaint: Abnormal heartbeat as per records Primary Care Provider: Jen Leahy MD History obtained from patient, family, and records. 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 Recent confinement January 2018 for decompensated heart failure. Few days history of worsening shortness of breath on exertion. Intermittent chest pain relieved by nitroglycerin. Dry cough symptoms. No palpitations. Patient actually losing weight although belly distended, leg somewhat swollen as per . Patient seen at PCP's office today. EKG showed A. fib. Patient directed to the emergency room by PCP following rehabilitation center manager's recommendations. 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 Allergies Allergy/AdvReac Type Severity Reaction Status Date / Time nut - unspecified Allergy Severe MACADAMIA Verified 11/16/18 20:31 NUT = THROAT SWELLING grass pollen-perennial rye, Allergy Unknown HAY FEVER Verified 11/16/18 20:31 standar atenolol AdvReac Unknown Cough Verified 11/16/18 20:32 Home Medications Home Medications Medication Instructions Recorded Confirmed Type fexofenadine [Vane Allergy] 180 mg PO DAILY PRN 12/21/17 11/16/18 History clopidogrel 75 mg PO QAM #30 tab 12/22/17 11/16/18 Rx finasteride 5 mg PO DAILY 01/24/18 11/16/18 History metoprolol tartrate 25 mg PO BID 01/24/18 11/16/18 History nitroglycerin 0.4 mg SUBLINGUAL DIRECTED 01/24/18 11/16/18 History rosuvastatin 20 mg PO HS 01/24/18 11/16/18 History tamsulosin 0.4 mg PO DAILY 01/24/18 11/16/18 History torsemide 20 mg PO QAM #30 tab 01/27/18 11/16/18 Rx aspirin [Aspir-81] 81 mg PO DAILY 09/13/18 11/16/18 History ferrous sulfate 325 mg PO QDB 09/13/18 11/16/18 History spironolactone 25 mg PO DAILY 09/13/18 11/16/18 History alprazolam 0.5 mg PO TID PRN 11/16/18 11/16/18 History cholecalciferol (vitamin D3) 2,000 unit PO DAILY 11/16/18 11/16/18 History cyanocobalamin (vitamin B-12) 1,000 mcg PO DAILY 11/16/18 11/16/18 History metformin 1,000 mg PO BID 11/16/18 11/16/18 History metoclopramide HCl 5 mg PO TIDM 11/16/18 11/16/18 History mirtazapine 15 mg PO HS 11/16/18 11/16/18 History morphine 15 mg PO Q12H PRN 11/16/18 11/16/18 History pantoprazole 20 mg PO QAM 11/16/18 11/16/18 History prednisone 10 mg PO UD 11/16/18 11/16/18 History Past Med/Surg History Medical History Acute diastolic heart failure Chronic diastolic heart failure Allergic asthma (Chronic) Hyperlipidemia (Chronic) Hypertension (Chronic) Depression (Chronic) GERD (gastroesophageal reflux disease) (Chronic) Allergic rhinitis (Chronic) Epiphrenic diverticulum (Chronic) Lumbar disc disease (Chronic) H/O malignant neoplasm of colon (Chronic) DM type 2 (diabetes mellitus, type 2) (Chronic) Pulmonary nodule (Chronic) Anxiety (Chronic) Surgical History S/P right coronary artery (RCA) stent placement H/O coronary angioplasty (Chronic) "12/2013- angioplasty of LAD" S/P thoracotomy (Chronic) "02/24/2013- diverticulectomy of esophagus thoracic approach, esophogastric fundoplasty, imbrication of diaphragm" Social History Preferred Language: Urdu Communication Ability: Effective Lead Recoverer Required: No Beliefs That Will Affect Care: None Current Living Situation: Spouse Other Information That Helps Us Care for You: No Feels Safe at Home: Yes Safety Concerns: Feels Safe At This Time Smoking Status: Never smoker Second Hand Exposure: No ; Hx Alcohol Use: No Hx Substance Use: No Review of Systems Review of Systems: As per HPI, all 10 systems reviewed, all other ROS negative Physical Exam Physical Exam: GENERAL: Comfortable, minimal respiratory distress, occasionally has to catch her breath during speech, obese, cushingoid SKIN: Pallor , warm HEENT: Pale palpebral conjunctivae, no ptosis, dry buccal mucosa, nasal cannula in place NECK : Supple, short neck, no tenderness CHEST : Decreased breath sounds , no tenderness HEART : Tachycardic , irregular, no obvious murmurs ABDOMEN: Some distention, nontender EXTREMITIES : Minimal LE swelling, no LE tenderness, no other conspicuous deformities noted NEUROLOGIC : Coherent, no facial asymmetry, no other gross focality Results & Data Vital Signs (Past 12 Hours) Vital Signs Temp Pulse Resp BP Pulse Ox 11/16/18 21:30 88 19 122/96 96 11/16/18 21:00 107 H 22 136/88 97 11/16/18 20:31 145/81 H 11/16/18 20:01 100 H 27 H 95/72 L 97 11/16/18 19:30 112 H 16 159/98 H 96 11/16/18 19:06 99 H 18 124/70 97 11/16/18 18:30 96 H 24 133/100 98 11/16/18 18:16 103 H 28 H 118/74 97 11/16/18 18:00 93 H 26 H 96/71 L 98 10/09/19 17:08 37 C 90 18 133/68 97 Laboratory Results Laboratory Results WBC 10.79 K/uL (4.8-10.8) 11/16/18 16:55 RBC 3.96 M/uL (4.7-6.1) L 11/16/18 16:55 Hgb 12.8 g/dL (14.0-18.0) L 11/16/18 16:55 Hct 37.9 % (42-52) L 11/16/18 16:55 MCV 95.7 fL (80-100) 11/16/18 16:55 MCH 32.3 pg (25-34) 11/16/18 16:55 MCHC 33.8 g/dL (32-36) 11/16/18 16:55 RDW Std Deviation 45.2 fL (36.4-46.3) 11/16/18 16:55 RDW Coeff of William 13.1 % (11.5-14.5) 11/16/18 16:55 Plt Count 207 K/uL (130-400) 11/16/18 16:55 MPV 9.9 fL (7.4-10.4) 11/16/18 16:55 Immature Gran % (Auto) 0.6 % 11/16/18 16:55 Neut % (Auto) 82.4 % 11/16/18 16:55 Lymph % (Auto) 8.4 % 11/16/18 16:55 Elk % (Auto) 7.9 % 11/16/18 16:55 Eos % (Auto) 0.6 % 11/16/18 16:55 Baso % (Auto) 0.1 % 11/16/18 16:55 Immature Gran # (Auto) 0.07 K/uL (0.00-0.02) H 11/16/18 16:55 Neut # (Auto) 8.89 K/uL (1.4-6.5) H 11/16/18 16:55 Lymph # (Auto) 0.91 K/uL (1.2-3.4) L 11/16/18 16:55 Elk # (Auto) 0.85 K/uL (0.11-0.59) H 11/16/18 16:55 Eos # (Auto) 0.06 K/uL (0-0.5) 11/16/18 16:55 Baso # (Auto) 0.01 K/uL (0-0.2) 11/16/18 16:55 PT 10.3 Seconds (9.0-12.0) 11/16/18 16:55 INR 1.0 (0.9-1.1) 11/16/18 16:55 APTT 22.2 Seconds (21.0-31.0) 11/16/18 16:55 PTT Ratio 0.8 11/16/18 16:55 ABG pH 7.44 (7.35-7.45) 11/16/18 21:41 ABG pCO2 47 mmHg (35-46) H 11/16/18 21:41 ABG pO2 114 mm/Hg (80-95) H 11/16/18 21:41 ABG HCO3 31 mmol/L (19-24) H 11/16/18 21:41 ABG O2 Saturation 98.4 % (90-95) H 11/16/18 21:41 ABG Base Excess 5.9 mEq/L (-9-1.8) H 11/16/18 21:41 [place] Test Pos (Pos) 11/16/18 21:41 Barometric Pressure 738.7 mm/Hg 11/16/18 21:41 Oxygen Given 3 L 11/16/18 21:41 Sodium 133 mmol/L (136-145) L 11/16/18 16:55 Potassium 4.6 mmol/L (3.5-5.1) 11/16/18 16:55 Chloride 95 mmol/L (98-107) L 11/16/18 16:55 Carbon Dioxide 29 mmol/L (21-32) 11/16/18 16:55 Anion Gap 9.0 (3-11) 11/16/18 16:55 BUN 34 mg/dl (7-18) H 11/16/18 16:55 Creatinine 1.42 mg/dl (0.6-1.4) H 11/16/18 16:55 Est Cr Clr Drug Dosing 51.3 ml/min 11/16/18 16:55 Est GFR ( Amer) 55.2 11/16/18 16:55 Est GFR (Non-Af Amer) 47.6 11/16/18 16:55 BUN/Creatinine Ratio 24.0 (10-20) H 11/16/18 16:55 Glucose 209 mg/dl (70-99) H 11/16/18 16:55 Lactate 2.1 mmol/L (0.4-2.0) H* 11/16/18 21:41 Calcium 9.2 mg/dl (8.5-10.1) 11/16/18 16:55 Magnesium 1.9 mg/dl (1.8-2.4) 11/16/18 16:55 Total Bilirubin 0.4 mg/dl (0.2-1) 11/16/18 16:55 AST 18 U/L (15-37) 11/16/18 16:55 ALT 49 U/L (12-78) 11/16/18 16:55 Alkaline Phosphatase 24 U/L (45-117) L 11/16/18 16:55 Troponin I 0.036 ng/ml (0-0.045) 11/16/18 16:55 Total Protein 7.0 gm/dl (6.4-8.2) 11/16/18 16:55 Albumin 3.8 gm/dl (3.4-5.0) 11/16/18 16:55 Globulin 3.2 gm/dl (2.5-4.0) 11/16/18 16:55 Albumin/Globulin Ratio 1.2 (0.9-2) 11/16/18 16:55 TSH 1.250 uIu/ml (0.300-4.500) 11/16/18 16:55 Urine Color Yellow 11/16/18:25 Urine Appearance Clear (Clear) 11/16/18:25 Urine pH 6.5 (4.5-7.5) 11/16/18 19:25 Ur Specific [place] 1.011 (1.000-1.030) 11/16/18:25 Urine Protein Negative (Negative) 11/16/18:25 Urine Glucose (UA) Negative (Negative) 11/16/18:25 Urine Ketones Negative (Negative) 11/16/18:25 Urine Blood Negative (Negative) 11/16/18:25 Urine Nitrite Negative (Negative) 11/16/18:25 Urine Bilirubin Negative (Negative) 11/16/18:25 Urine Urobilinogen Negative (Negative) 11/16/18 19:25 Ur Leukocyte Esterase Negative (Negative) 11/16/18 19:25 Diagnostic Findings Chest x-ray : Cardiomegaly with mild congestive change and trace bilateral pleural effusions. This is similar to the prior study. Left basilar linear densities also persist and may represent atelectasis or pneumonia. EKG as per my interpretation : Rate 90, A. fib, LAD, LAFB, LVH no ischemia
[2018-11-16] MEDS: HEPARIN SODIUM/DEXTROSE 25,000 UNITS/500 ML BAG IV SCH (23:06)
--- NOTE | 2018-11-16 23:12 | Emergency Department Note ---
Entered by Jess Mueller acting as a scribe for ED Provider Note CHIEF COMPLAINT: Shortness of breath HISTORY OF PRESENT ILLNESS: The patient is a 78 year old male presenting to the Emergency Department complaining of persistent shortness of breath starting 1 day ago. The patient reports that he is having trouble breathing and is short of breath. He states that he has a cough that produces a mucous. He explains that he is nauseous and constipated as he hasnt had a bowel movement yet today which is abnormal. He notes that walking around worsens his shortness of breath. He adds that he always uses supplemental oxygen. The patient reports that he was using supplemental oxygen [employer]PA[employer] today. He states that he regularly takes Plavix. He explains that he was at his PCP [employer] where an EKG was done and found to be abnormal. He notes that his PCP then called a salvage supervisor who recommended that the patient come to the ED in order to be admitted. Pt denies LOC, headache, fevers, chills, diaphoresis, visual changes, neck pain, chest pain, vomiting, abdominal pain, back pain, melena, hematochezia, urinary symptoms, numbness, lymphadenopathy, rash, or other complaints. REVIEW OF SYSTEMS: See HPI for pertinent positives and negatives. A total of ten systems were reviewed and were otherwise negative. PMHx/PSHx: See past medical and surgical history lists. SOCIAL HISTORY: Patient lives at home. PHYSICAL EXAM: GENERAL: Awake, alert, tired-appearing, in no distress HENT: Normocephalic, atraumatic. Oropharynx unremarkable. EYES: PERRL. Normal conjunctiva. Sclera non-icteric. NECK: Inspection normal. Non-tender. Supple. No nuchal rigidity. FROM. No masses. RESPIRATORY: Clear to auscultation. No wheezes. No rales. Normal respiratory effort. CARDIAC: Borderline tachycardic rate. Irregularly irregular rhythm. No murmurs. No rubs. Extremities warm and well perfused. Pulses equal. No JVD. GI: Soft, non-distended. No tenderness to palpation. No rebound or guarding. No masses. RECTAL: Deferred. MUSCULOSKELETAL: Atraumatic. Chest examination reveals no tenderness. The back is symmetrical on inspection without obvious abnormality. There is no CVA tenderness to palpation. No joint edema. LOWER EXTREMITIES: 1+ lower extremity edema. Calves are equal size bilaterally and non-tender. No discoloration. NEURO: Normal sensorium. No sensory or motor deficits noted. SKIN: No rash or jaundice noted. EMERGENCY DEPARTMENT COURSE: 1824: Past medical records reviewed. The patient was evaluated in room C9, and a complete history and physical examination were performed. 2039: I discussed the patients case with Dr. Jeanette Haddad hospitalist. He will evaluate the patient for further management. 2100: The patient is requesting pain medication at this time. 2108: I updated the patient at this time. MEDICAL DECISION MAKING: Triage Nursing notes reviewed and agree them. Additional history obtained from the family. The patient's history was concerning for dysrhythmia and shortness of breath. Differential diagnosis: Etiologies such as dysrhythmia, pneumonia, COPD, reactive airway disease, CHF, cardiac ischemia, pulmonary embolism, pneumothorax, musculoskeletal, infections, gastrointestinal, as well as others were entertained. Physical examination: As above. No acute distress. Patient was resting comfortably in bed. Irregular heart rhythm. ER treatment provided: Monitoring Supplemental oxygen Patient was given a dose of his oral morphine On reassessment the patient felt better. Diagnostic interpretation by me: The electrocardiogram was concerning for new onset a flutter with variable block. The labs revealed a slight anemia on CBC but no leukocytosis. Chemistry panel was unremarkable except for mild hyperglycemia. Imaging studies: Chest x-ray chronic findings with some mild superimposed CHF. The patient was directed to the emergency department by the primary office in cardiology for admission given the new onset atrial dysrhythmia. He is currently rate controlled. Consultation: A consultation was placed with the hospitalist. The case was discussed and diagnostics were reviewed. The patient was evaluated in the ER for further natasha tment. IMPRESSION: New onset atrial flutter, Shortness of breath, Hyperglycemia, Interstitial lung disease PLAN: Being Evaluated by Hospitalist The scribe's documentation has been prepared under my direction and personally reviewed by me in its entirety. I confirm that the note above accurately reflects all work, treatment, procedures, and medical decision making performed by me. Impression & Plan New onset atrial flutter, Interstitial lung disease, Shortness of breath, Hyperglycemia Past Med/Surg History Medical History Acute diastolic heart failure Chronic diastolic heart failure Allergic asthma (Chronic) Hyperlipidemia (Chronic) Hypertension (Chronic) Depression (Chronic) GERD (gastroesophageal reflux disease) (Chronic) Allergic rhinitis (Chronic) Epiphrenic diverticulum (Chronic) Lumbar disc disease (Chronic) H/O malignant neoplasm of colon (Chronic) DM type 2 (diabetes mellitus, type 2) (Chronic) Pulmonary nodule (Chronic) Anxiety (Chronic) Surgical History S/P right coronary artery (RCA) stent placement H/O coronary angioplasty (Chronic) "12/2013- angioplasty of LAD" S/P thoracotomy (Chronic) "02/24/2013- diverticulectomy of esophagus thoracic approach, esophogastric fundoplasty, imbrication of diaphragm" Social History Preferred Language: [place] Physical Security Manager Required: No Beliefs That Will Affect Care: None Current Living Situation: Spouse Feels Safe at Home: Yes Smoking Status: Never smoker Second Hand Exposure: No ; Hx Alcohol Use: No Hx Substance Use: No Results & Data Vital Signs Vital Signs - 24 hr 11/16/18 17:08 11/16/18 18:00 11/16/18 18:16 Temperature 37 C Temperature Source Oral Sepsis Recent Fever Within 48 Hours No Sepsis New/Unexplained Change in Mental Status No Sepsis Action Taken by Nursing No Action Required Pulse Rate 90 93 H 103 H Pulse Rate from SpO2 Sensor 91 H 98 H Pulse Rhythm Irregular Pulse Strength Normal Respiratory Rate 18 26 H 28 H Respiratory Effort / Characteristics Spontaneous SOB on Exertion Respiratory Depth Normal Respiratory Pattern Regular Blood Pressure 133/68 96/71 L 118/74 Blood Pressure Mean 89 79 88 Blood Pressure Position Sitting Pulse Oximetry 97 98 97 Oxygen Delivery Method Nasal Cannula Nasal Cannula Nasal Cannula Oxygen Flow Rate 3 3 3 11/16/18 18:30 11/16/18 19:05 11/16/18 19:06 Temperature Temperature Source Sepsis Recent Fever Within 48 Hours Sepsis New/Unexplained Change in Mental Status Sepsis Action Taken by Nursing Pulse Rate 96 H 99 H Pulse Rate from SpO2 Sensor 97 H 96 H Pulse Rhythm Pulse Strength Respiratory Rate 24 18 Respiratory Effort / Characteristics Respiratory Depth Respiratory Pattern Blood Pressure 133/100 124/70 Blood Pressure Mean 111 88 Blood Pressure Position Pulse Oximetry 98 97 Oxygen Delivery Method Nasal Cannula Nasal Cannula Nasal Cannula Oxygen Flow Rate 3 3 3 11/16/18 19:30 11/16/18 20:01 11/16/18 20:31 Temperature Temperature Source Sepsis Recent Fever Within 48 Hours Sepsis New/Unexplained Change in Mental Status Sepsis Action Taken by Nursing Pulse Rate 112 H 100 H Pulse Rate from SpO2 Sensor 104 H 106 H Pulse Rhythm Pulse Strength Respiratory Rate 16 27 H Respiratory Effort / Characteristics Respiratory Depth Respiratory Pattern Blood Pressure 159/98 H 95/72 L 145/81 H Blood Pressure Mean 118 79 102 Blood Pressure Position Pulse Oximetry 96 97 Oxygen Delivery Method Nasal Cannula Nasal Cannula Oxygen Flow Rate 3 3 11/16/18 21:00 11/16/18 21:30 11/16/18 22:29 Temperature Temperature Source Sepsis Recent Fever Within 48 Hours Sepsis New/Unexplained Change in Mental Status Sepsis Action Taken by Nursing Pulse Rate 107 H 88 94 H Pulse Rate from SpO2 Sensor 91 H 93 H 100 H Pulse Rhythm Pulse Strength Respiratory Rate 22 19 24 Respiratory Effort / Characteristics Respiratory Depth Respiratory Pattern Blood Pressure 136/88 122/96 122/71 Blood Pressure Mean 104 104 88 Blood Pressure Position Pulse Oximetry 97 96 96 Oxygen Delivery Method Nasal Cannula Nasal Cannula Nasal Cannula Oxygen Flow Rate 3 3 3 11/16/18 22:30 11/16/18 23:00 Temperature Temperature Source Sepsis Recent Fever Within 48 Hours Sepsis New/Unexplained Change in Mental Status Sepsis Action Taken by Nursing Pulse Rate 79 75 Pulse Rate from SpO2 Sensor 89 82 Pulse Rhythm Pulse Strength Respiratory Rate 18 25 H Respiratory Effort / Characteristics Respiratory Depth Respiratory Pattern Blood Pressure 133/80 115/77 Blood Pressure Mean 97 89 Blood Pressure Position Pulse Oximetry 97 97 Oxygen Delivery Method Nasal Cannula Nasal Cannula Oxygen Flow Rate 3 3 Home Medications Current Medication List: was personally reviewed by me Laboratory Data Attestation: I reviewed the patient's lab results. Result diagrams: 11/16/18 16:55 11/16/18 16:55 Lab Results 11/16/18 11/16/18 11/16/18 Range/Units 16:55 16:55 16:55 WBC 10.79 (4.8-10.8) K/uL RBC 3.96 L (4.7-6.1) M/uL Hgb 12.8 L (14.0-18.0) g/dL Hct 37.9 L (42-52) % MCV 95.7 (80-100) fL MCH 32.3 (25-34) pg MCHC 33.8 (32-36) g/dL RDW Std Deviation 45.2 (36.4-46.3) fL RDW Coeff of William 13.1 (11.5-14.5) % Plt Count 207 (130-400) K/uL MPV 9.9 (7.4-10.4) fL Immature Gran % (Auto) 0.6 % Neut % (Auto) 82.4 % Lymph % (Auto) 8.4 % [place] % (Auto) 7.9 % Eos % (Auto) 0.6 % Baso % (Auto) 0.1 % Immature Gran # (Auto) 0.07 H (0.00-0.02) K/uL Neut # (Auto) 8.89 H (1.4-6.5) K/uL Lymph # (Auto) 0.91 L (1.2-3.4) K/uL [place] # (Auto) 0.85 H (0.11-0.59) K/uL Eos # (Auto) 0.06 (0-0.5) K/uL Baso # (Auto) 0.01 (0-0.2) K/uL PT 10.3 (9.0-12.0) Seconds INR 1.0 (0.9-1.1) APTT 22.2 (21.0-31.0) Seconds PTT Ratio 0.8 ABG pH (7.35-7.45) ABG pCO2 (35-46) mmHg ABG pO2 (80-95) mm/Hg ABG HCO3 (19-24) mmol/L ABG O2 Saturation (90-95) % ABG Base Excess (-9-1.8) mEq/L [place] Test (Pos) Barometric Pressure mm/Hg Oxygen Given Sodium 133 L (136-145) mmol/L Potassium 4.6 (3.5-5.1) mmol/L Chloride 95 L (98-107) mmol/L Carbon Dioxide 29 (21-32) mmol/L Anion Gap 9.0 (3-11) BUN 34 H (7-18) mg/dl Creatinine 1.42 H (0.6-1.4) mg/dl Est Cr Clr Drug Dosing 51.3 ml/min Est GFR ( Amer) 55.2 Est GFR (Non-Af Amer) 47.6 BUN/Creatinine Ratio 24.0 H (10-20) Glucose 209 H (70-99) mg/dl Lactate (0.4-2.0) mmol/L Calcium 9.2 (8.5-10.1) mg/dl Magnesium 1.9 (1.8-2.4) mg/dl Total Bilirubin 0.4 (0.2-1) mg/dl AST 18 (15-37) U/L ALT 49 (12-78) U/L Alkaline Phosphatase 24 L (45-117) U/L Troponin I 0.036 (0-0.045) ng/ml Total Protein 7.0 (6.4-8.2) gm/dl Albumin 3.8 (3.4-5.0) gm/dl Globulin 3.2 (2.5-4.0) gm/dl Albumin/Globulin Ratio 1.2 (0.9-2) TSH 1.250 (0.300-4.500) uIu/ml Urine Color Urine Appearance (Clear) Urine pH (4.5-7.5) Ur Specific [place] (1.000-1.030) Urine Protein (Negative) Urine Glucose (UA) (Negative) Urine Ketones (Negative) Urine Blood (Negative) Urine Nitrite (Negative) Urine Bilirubin (Negative) Urine Urobilinogen (Negative) Ur Leukocyte Esterase (Negative) 11/16/18 11/16/18 11/16/18 Range/Units 19:25 21:41 21:41 WBC (4.8-10.8) K/uL RBC (4.7-6.1) M/uL Hgb (14.0-18.0) g/dL Hct (42-52) % MCV (80-100) fL MCH (25-34) pg MCHC (32-36) g/dL RDW Std Deviation (36.4-46.3) fL RDW Coeff of William (11.5-14.5) % Plt Count (130-400) K/uL MPV (7.4-10.4) fL Immature Gran % (Auto) % Neut % (Auto) % Lymph % (Auto) % [place] % (Auto) % Eos % (Auto) % Baso % (Auto) % Immature Gran # (Auto) (0.00-0.02) K/uL Neut # (Auto) (1.4-6.5) K/uL Lymph # (Auto) (1.2-3.4) K/uL [place] # (Auto) (0.11-0.59) K/uL Eos # (Auto) (0-0.5) K/uL Baso # (Auto) (0-0.2) K/uL PT (9.0-12.0) Seconds INR (0.9-1.1) APTT (21.0-31.0) Seconds PTT Ratio ABG pH 7.44 (7.35-7.45) ABG pCO2 47 H (35-46) mmHg ABG pO2 114 H (80-95) mm/Hg ABG HCO3 31 H (19-24) mmol/L ABG O2 Saturation 98.4 H (90-95) % ABG Base Excess 5.9 H (-9-1.8) mEq/L [place] Test Pos (Pos) Barometric Pressure 738.7 mm/Hg Oxygen Given 3 L Sodium (136-145) mmol/L Potassium (3.5-5.1) mmol/L Chloride (98-107) mmol/L Carbon Dioxide (21-32) mmol/L Anion Gap (3-11) BUN (7-18) mg/dl Creatinine (0.6-1.4) mg/dl Est Cr Clr Drug Dosing ml/min Est GFR ( Amer) Est GFR (Non-Af Amer) BUN/Creatinine Ratio (10-20) Glucose (70-99) mg/dl Lactate 2.1 H* (0.4-2.0) mmol/L Calcium (8.5-10.1) mg/dl Magnesium (1.8-2.4) mg/dl Total Bilirubin (0.2-1) mg/dl AST (15-37) U/L ALT (12-78) U/L Alkaline Phosphatase (45-117) U/L Troponin I (0-0.045) ng/ml Total Protein (6.4-8.2) gm/dl Albumin (3.4-5.0) gm/dl Globulin (2.5-4.0) gm/dl Albumin/Globulin Ratio (0.9-2) TSH (0.300-4.500) uIu/ml Urine Color Yellow Urine Appearance Clear (Clear) Urine pH 6.5 (4.5-7.5) Ur Specific [place] 1.011 (1.000-1.030) Urine Protein Negative (Negative) Urine Glucose (UA) Negative (Negative) Urine Ketones Negative (Negative) Urine Blood Negative (Negative) Urine Nitrite Negative (Negative) Urine Bilirubin Negative (Negative) Urine Urobilinogen Negative (Negative) Ur Leukocyte Esterase Negative (Negative) Administered Medications Heparin Sodium/Dextrose (Heparin Sodium/Dextrose) 25,000 units in 500 mls @ 30 mls/hr IV .[id number] [facility]; Protocol Stop: 12/16/18 22:29 Last Admin: 11/16/18 23:06 Dose: 1,500 units/hr, 30 mls/hr Documented by: [id number] Cosigned by: [id number] Discontinued Medications Magnesium Sulfate/Dextrose (Magnesium Sulfate / D5w) 1 gm in 100 mls @ 100 mls/hr IV ONE ONE Stop: 11/16/18 22:19 Last Infusion: 11/16/18 22:53 Dose: 0 mls/hr Documented by: [id number] Admin: 11/16/18 21:50 Dose: 100 mls/hr Documented by: [id number] Furosemide 40 mg/ Albumin (Human) 54 mls @ 54 mls/hr IV ONE ONE Stop: 11/16/18 22:49 Last Admin: 11/16/18 22:57 Dose: 54 mls/hr Documented by: [id number] Morphine Sulfate (Ms Contin) 15 mg PO Q12H STA Stop: 11/16/18 21:02 Last Admin: 11/16/18 21:50 Dose: 15 mg Documented by: [id number] Imaging Data Radiologist's Impression: Radiology results as stated below per my review and the radiologist's interpretation: XR chest 1V portable HISTORY: Shortness of breath. COMPARISON: Chest 01/24/2018. FINDINGS: No pneumothorax. Trace bilateral pleural effusions and mild congestive change persists. Left basilar linear densities are unchanged. The heart remains enlarged. There are low lung volumes. IMPRESSION: Cardiomegaly with mild congestive change and trace bilateral pleural effusions. This is similar to the prior study. Left basilar linear densities also persist and may represent atelectasis or pneumonia. Electronically signed by: Jorge Ahmadi M.D. 11/16/2018 7:13 PM ECG Data Attestation: I personally reviewed and interpreted this ECG as follows: Indication: SOB/dyspnea Rate (beats per minute): 93 Rhythm: atrial flutter (with variable block) Findings: + other (LVH. Normal QRS.) and + Q waves (Interior Q waves); no ST elevation Additional Comments: EKG [employer] per my interpretation: Atrial flutter with variable block at 94 bpm. 1st degree AV block. Anterior Q waves. No ST elevation. Normal QRS. Blood Pressure Blood Pressure Findings: Elevated blood pressure Blood Pressure Disposition: further management by hospitalist Discharge Plan Visit Data Chief Complaint: Shortness of Breath/Dyspnea Stated Complaint: afib/sob ED Provider: Efrain Hu Discharge Problem: New onset atrial flutter, Interstitial lung disease, Shortness of breath, Hyperglycemia Forms Stand Alone Forms: My [facility] Prescriptions Prescriptions: No Action fexofenadine [Vane Allergy] 180 mg Tablet 180 mg PO DAILY PRN (Reason: Allergy Symptoms) RF: 0 clopidogrel 75 mg Tablet 75 mg PO QAM Qty: 30 RF: 6 tamsulosin 0.4 mg Capsule 0.4 mg PO DAILY RF: 0 nitroglycerin 0.4 mg Tablet, Sublingual 0.4 mg Sublingual DIRECTED RF: 0 finasteride 5 mg Tablet 5 mg PO DAILY RF: 0 rosuvastatin 20 mg Tablet 20 mg PO HS RF: 0 metoprolol tartrate 25 mg Tablet 25 mg PO BID RF: 0 torsemide 20 mg tablet 20 mg PO QAM Qty: 30 RF: 1 alprazolam 0.5 mg tablet 0.5 mg PO TID PRN (Reason: Anxiety) RF: 0 morphine 15 mg Tablet 15 mg PO Q12H PRN (Reason: Pain) RF: 0 prednisone 10 mg tablet 10 mg PO UD RF: 0 mirtazapine 15 mg tablet 15 mg PO HS RF: 0 pantoprazole 20 mg tablet,delayed release (DR/EC) 20 mg PO QAM RF: 0 cholecalciferol (vitamin D3) 2,000 unit Tablet 2,000 unit PO DAILY RF: 0 cyanocobalamin (vitamin B-12) 1,000 mcg Capsule 1,000 mcg PO DAILY RF: 0 metformin 500 mg tablet extended release 24 hr 1,000 mg PO BID RF: 0 metoclopramide HCl 5 mg tablet 5 mg PO TIDM RF: 0 aspirin [Aspir-81] 81 mg Tablet,Delayed Release (Dr/Ec) 81 mg PO DAILY RF: 0 spironolactone 25 mg Tablet 25 mg PO DAILY RF: 0 ferrous sulfate 325 mg (65 mg iron) Tablet 325 mg PO QDB RF: 0 The scribe's documentation has been prepared under my direction and personally reviewed by me in its entirety. I confirm that the note above accurately reflects all work, treatment, procedures, and medical decision making performed by me.
[2018-11-17] MEDS ORDERED: CARBOHYDRATES FOR HYPOGLYCEMIA PO PRN (00:31)
[2018-11-17] MEDS ORDERED: GLUCOSE 10 TABS/TUBE PO PRN (00:31)
[2018-11-17] MEDS ORDERED: ACETAMINOPHEN 325 MG TAB PO PRN (00:31)
[2018-11-17] MEDS ORDERED: PROMETHAZINE HCL 12.5 MG in SODIUM CHLORIDE 0.9% 50 ML IV PRN (00:31)
[2018-11-17] MEDS ORDERED: MoRPHine SULFATE IR 15 MG TAB (IMMEDIATE RELEASE) PO PRN (00:31)
[2018-11-17] MEDS ORDERED: NITROGLYCERIN SL 0.4 MG/TAB TAB SL PRN (00:31)
[2018-11-17] MEDS ORDERED: XOPENEX/ATROVENT 1.25mg/0.5MG NEB COMBO NEB STA (00:31)
[2018-11-17] MEDS ORDERED: DEXTROSE 50% 50 ML SYRINGE IV PRN (00:31)
[2018-11-17] MEDS ORDERED: GLUCAGON FOR INJ 1 MG VIAL SQ PRN (00:31)
[2018-11-17] MEDS ORDERED: GLUCOSE 40% GEL 15 GM TUBE PO PRN (00:31)
[2018-11-17] MEDS ORDERED: XOPENEX/ATROVENT 1.25mg/0.5MG NEB COMBO NEB ONE (01:00)
[2018-11-17] MEDS ORDERED: INSULIN GLARGINE SOLOSTAR 100 UNITS/ML 3 ML PEN SQ ONE (01:00)
[2018-11-17] MEDS ORDERED: IPRATROPIUM BROMIDE NEB SOLN 0.02% 2.5 ML VIAL INH ONE ×2 (01:00→13:00)
[2018-11-17] MEDS ORDERED: LEVALBUTEROL 1.25MG/0.5ML NEB INH ONE (01:00)
[2018-11-17] MEDS ORDERED: METOPROLOL TARTRATE 25 MG TAB PO ONE ×2 (01:00→13:00)
[2018-11-17 01:16] LABS: Appearance Urine Clear (Clear); Bilirubin Urine Negative (Negative); Blood Urine Negative (Negative); Color Urine Yellow; Glucose Urine UA Negative (Negative); Ketones Urine Negative (Negative); Leukocyte Esterase Urine Negative (Negative); Nitrite Urine Negative (Negative); Protein Urine Negative (Negative); Urobilinogen Urine Negative (Negative)
[2018-11-17] MEDS: TAMSULOSIN HCL 0.4 MG CAP PO SCH (02:17)
[2018-11-17] MEDS: INSULIN ASPART 100 UNITS/ML 3 ML PEN SC SCH ×5 (02:19→20:25)
[2018-11-17] MEDS: guaiFENesin 600 MG TABCR PO SCH ×3 (02:19→20:24)
[2018-11-17 03:36] LABS: Basophils # (auto) 0.01 K/uL (0-0.2); Basophils % (auto) 0.1 %; Hematocrit (blood only) 34.5 % (42-52); Hemoglobin 11.8 g/dL (14.0-18.0); Immature Granulocytes # (auto) 0.05 K/uL (0.00-0.02); Immature Granulocytes % (auto) 0.5 %; Lymphocytes # (auto) 1.54 K/uL (1.2-3.4); Lymphocytes % (auto) 15.7 %; Mean Corpuscular Hemoglobin 32.2 pg (25-34); Mean Corpuscular Hgb Conc 34.2 g/dL (32-36); Mean Corpuscular Volume 94.3 fL (80-100); Monocytes # (auto) 0.92 K/uL (0.11-0.59); Monocytes % (auto) 9.4 %; Neutrophils # (auto) 7.16 K/uL (1.4-6.5); Neutrophils % (auto) 73.3 %; Platelet Count 170 K/uL (130-400); RDW Standard Deviation 44.5 fL (36.4-46.3); Red Blood Count 3.66 M/uL (4.7-6.1); White Blood Count 9.78 K/uL (4.8-10.8)
[2018-11-17 03:58] LABS: Potassium 3.6 mmol/L (3.5-5.1)
[2018-11-17 03:59] LABS: BUN Creatinine Ratio 22.1 (10-20); Calcium 8.6 mg/dl (8.5-10.1); Creatinine Clr Calc Pharmacy 50.2 ml/min; Est GFR (African American) 54.7; Est GFR (Non-African American) 47.2; Troponin I 0.034 ng/ml (0-0.045)
[2018-11-17] MEDS: METOPROLOL TARTRATE 25 MG TAB PO SCH ×2 (05:57→20:23)
[2018-11-17 06:15] LABS: Partial Thromboplastin Ratio 2.1
[2018-11-17 06:27] LABS: Partial Thromboplastin Time 56.3 Seconds (21.0-31.0)
[2018-11-17 06:28] LABS: Estimated Average Glucose 192 mg/dl; Hemoglobin A1C 8.3 % (4.5-5.6)
[2018-11-17] MEDS ORDERED: PERFLUTREN LIPID MICROSPHERE (DEFINITY) IV ONE (07:00)
[2018-11-17] MEDS: FERROUS SULFATE 325 MG TAB PO SCH (07:39)
--- NOTE | 2018-11-17 08:22 | Cardioversion ---
Date of Service November 17, 2018 Electrical Cardioversion Rpt Electrical Cardioversion Report Date of Surgery November 17, 2018 Pre & Post Diagnosis Preprocedure diagnosis: Atrial fibrillation/atrial flutter Postprocedure diagnosis: Unsuccessful direct-current cardioversion x3 attempts, atrial flutter Procedure Direct-current cardioversion : After informed consent was obtained and a timeout was performed, patient received 40 mg of IV propofol and an initial dose of biphasic synchronized energy of 175 J at 7:55 AM. Sinus rhythm was subsequently observed, however recovering from sedation, recurrent tachycardia was observed and patient was noted to have reverted to atrial flutter at approximately 100 bpm. The patient was sedated receiving another 20 mg of IV propofol and received a second dose of 200 J of biphasic energy at 8:02 AM. Ongoing atrial flutter was observed, and a third dose of 300 J of biphasic energy was administered at 3 AM. Post procedure EKG at 8 AM documented typical atrial flutter at 99 bpm with age- indeterminate septal infarction pattern, unchanged compared to her typical baseline. Summary: The patient has been receiving oral amiodarone loading as an outpatient, and has received 1.8 grams so far. Will continue outpatient amiodarone loading with loading goal of 6 gm and will reassess. The patient had been seen as an outpatient 1 week ago, ongoing atypical atrial flutter 120 bpm was observed. When patient presented today, left atrium was mor e suggestive of atrial fibrillation with an irregular R to R interval in the range of 70 bpm. I am optimistic that the amiodarone will be successful with ongoing rate control and hopefully rhythm control. Patient already has an upcoming outpatient EP visit. Joint Runner Baljit Aparicio, Wood Preserving Plant Laborer none Estimated Blood Loss 0 Findings Consistent with Post-Op Diagnosis Anesthesia Type MAC Complications none
[2018-11-17] MEDS ORDERED: METOPROLOL TARTRATE 25 MG TAB PO SCH (09:00)
[2018-11-17] MEDS: METOCLOPRAMIDE HCL 5 MG TABLET PO SCH ×3 (09:04→15:33)
[2018-11-17] MEDS: ASPIRIN 81 MG ECTAB PO SCH (09:05)
[2018-11-17] MEDS: CLOPIDOGREL BISULFATE 75 MG TAB PO SCH (09:05)
[2018-11-17] MEDS: FINASTERIDE 5 MG TAB PO SCH (09:06)
[2018-11-17] MEDS: predniSONE 10 MG TABLET PO SCH (09:06)
[2018-11-17] MEDS: PANTOprazole 40 MG TAB PO SCH (09:07)
[2018-11-17] MEDS: POLYETHYLENE (MIRALAX) 17 GM PACK PO PRN (09:46)
--- NOTE | 2018-11-17 13:23 | Palliative Care Consultation ---
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 Patient found to be in new onset Afib with RVR. Cardiology is consulted and patient started on Digoxin. Patient is on 2.5LNC chronically at home 31/08, where he lives with his . Lamp Decorator had conversation with patient and his today regarding goals of care in the setting of this gentleman with many comorbidities and end stage interstitial lung disease. Patient and interested in home hospice care. Palliative care consulted. -Met with patient and his in room 216. Patient AA&O x4, c/o SOB intermittently at rest and worsening with any activity. Patient states that his functional status is quite poor and his breathing severely limits what he is able to do. He is SOB even at rest sometimes. -Patient and state that they have followed with pulmonology and closely with PCP. Patient has tried pulmonary rehab, but it was too difficult for him and took for long for him to recover from after. I also reviewed outpatient records and see that patient was in fact discharged from pulmonary rehab because it was not helpful and seemed to take too much out of the patient. -patient was recently started on oral morphine for treatment of his SOB in the setting of end stage ILD with no further therapy. Patient is chronically on 5mg PO Prednisone. He used to be on 40mg daily, but it was "affecting his bones," so he was deescalated to 5mg. When he attempted to wean down completely, patient's breathing and cough immediately got worse. -Patient stated that his quality of life is poor due to his breathing and not being able to stay active. Patient's goal is to be comfortable and let nature take its course. -Discussed home hospice care, and by this time, patient's [id number] was present as well. Patient would like to be evaluated by hospice agency. He agrees that he doesn't want to continue coming to and from hospital, and would like to cut down on doctor's appointments. Case management making referral. -Discussed CODE STATUS. Patient would like to be DO NOT RESUSCITATE. -POLST form presented and discussed-- will discuss further in detail and complete this tomorrow. -Continue patient's cardiac medications and prednisone. -Patient was using morphine IR 15mg BID as needed. Patient states the morphine worked well but was not enough. The SOB would return long before he was due for another dose. -Will order Morphine long-acting 15mg BID scheduled. Roxanol 5mg PO/SL Q6h PRN pain or SOB. Patient and family counseled on the secondary side effects of morphine such as sedation, respiratory depression, and constipation. -Patient should take Miralax daily. Was previously having 3-4 BMs a day, so will wait to order another stool softener or laxative for now. (2) Atrial fibrillation with controlled ventricular rate: (3) Shortness of breath: (4) Interstitial lung disease: Supervising Physician Co-Signing Physician Notes Chart reviewed, patient seen and examined. No family at bedside. Patient reports that morphine is very effective in helping his shortness of breath. Patient has POLST form at bedside which he plans to review. PE: Patient awake and alert, no acute distress. HEENT: EOMI, hearing within normal limits Respiratory: Increased shortness of breath with minimal exertion, diminished breath sounds bilateral bases, on O2 CV: Irregular rhythm, rate controlled Abdomen: Soft, nontender Neuro: Alert and oriented x4 Agree with above note, assessment and plan as per GALE Velázquez. Will continue to follow and assist patient and family with medical decision making. Patient interested in hospice evaluation-will collaborate with case management. History of Present Illness Reason for Consultation: Goals of care Requesting Physician: Dr. 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 Patient found to be in new onset Afib with RVR. Cardiology is consulted and patient started on Digoxin. Patient is on 2.5LNC chronically at home 31/08, where he lives with his . Lamp Decorator had conversation with patient and his today regarding goals of care in the setting of this gentleman with many comorbidities and end stage interstitial lung disease. Patient and interested in home hospice care. Palliative care consulted. Thank you kindly for this consult. Palliative care team will follow as needed. Allergies Allergy/AdvReac Type Severity Reaction Status Date / Time nut - unspecified Allergy Severe MACADAMIA Verified 11/16/18 20:31 NUT = THROAT SWELLING grass pollen-perennial rye, Allergy Unknown HAY FEVER Verified 11/16/18 20:31 standar atenolol AdvReac Unknown Cough Verified 11/16/18 20:32 Home Medications Home Medications Medication Instructions Recorded Confirmed Type fexofenadine [Vane Allergy] 180 mg PO DAILY PRN 12/21/17 11/16/18 History clopidogrel 75 mg PO QAM #30 tab 12/22/17 11/16/18 Rx finasteride 5 mg PO DAILY 01/24/18 11/16/18 History metoprolol tartrate 25 mg PO BID 01/24/18 11/16/18 History nitroglycerin 0.4 mg SUBLINGUAL DIRECTED 01/24/18 11/16/18 History rosuvastatin 20 mg PO HS 01/24/18 11/16/18 History tamsulosin 0.4 mg PO DAILY 01/24/18 11/16/18 History torsemide 20 mg PO QAM #30 tab 01/27/18 11/16/18 Rx aspirin [Aspir-81] 81 mg PO DAILY 09/13/18 11/16/18 History ferrous sulfate 325 mg PO QDB 09/13/18 11/16/18 History spironolactone 25 mg PO DAILY 09/13/18 11/16/18 History alprazolam 0.5 mg PO TID PRN 11/16/18 11/16/18 History cholecalciferol (vitamin D3) 2,000 unit PO DAILY 11/16/18 11/16/18 History cyanocobalamin (vitamin B-12) 1,000 mcg PO DAILY 11/16/18 11/16/18 History metformin 1,000 mg PO BID 11/16/18 11/16/18 History metoclopramide HCl 5 mg PO TIDM 11/16/18 11/16/18 History mirtazapine 15 mg PO HS 11/16/18 11/16/18 History morphine 15 mg PO Q12H PRN 11/16/18 11/16/18 History pantoprazole 20 mg PO QAM 11/16/18 11/16/18 History prednisone 10 mg PO UD 11/16/18 11/16/18 History Patient History Medical History Acute diastolic heart failure Chronic diastolic heart failure Allergic asthma (Chronic) Hyperlipidemia (Chronic) Hypertension (Chronic) Depression (Chronic) GERD (gastroesophageal reflux disease) (Chronic) Allergic rhinitis (Chronic) Epiphrenic diverticulum (Chronic) Lumbar disc disease (Chronic) H/O malignant neoplasm of colon (Chronic) DM type 2 (diabetes mellitus, type 2) (Chronic) Pulmonary nodule (Chronic) Anxiety (Chronic) Surgical History S/P right coronary artery (RCA) stent placement H/O coronary angioplasty (Chronic) "12/2013- angioplasty of LAD" S/P thoracotomy (Chronic) "02/24/2013- diverticulectomy of esophagus thoracic approach, esophogastric fundoplasty, imbrication of diaphragm" Social History Preferred Language: Paraguayan Communication Ability: Effective Aviation 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 Operator Required: No Beliefs That Will Affect Care: None Current Living Situation: Spouse Other Information That Helps Us Care for You: No Feels Safe at Home: Yes Safety Concerns: Feels Safe At This Time Smoking Status: Never smoker Second Hand Exposure: No ; Hx Alcohol Use: No Hx Substance Use: No Review of Systems Review of Systems: Const: No weakness ENMT: No dysphagia Resp: + SOB, + dry cough, + dyspnea on exertion Cardio: No chest pain, no edema GI: No abdominal pain, no N/V MS: No musculoskeletal pain Neuro: No confusion Psych: No anxiety, no depression Physical Exam Constitutional: + overweight ENMT: external ear and nose normal, oropharynx normal Neck: normal visual inspection Respiratory: + labored breathing (mildly labored at rest) Auscultation: + diminished lung sounds and + rhonchi Cardiovascular: Rate/Rhythm: regular rate and + irregularly irregular Gastrointestinal (Abdomen): Inspection/Auscultation: abdomen normal to inspection and normal bowel sounds Percussion/Palpation: abdomen soft Neurologic: moves all extremities and awake Psychiatric: A+Ox3, euthymic affect Insight: good insight Results & Data Vital Signs (Past 12 Hours) Vital Signs Temp Pulse Resp BP Pulse Ox 11/17/18 08:00 36.7 C 76 18 111/74 95 11/17/18 03:08 36.7 C 97 H 20 124/78 99 PG Care Time/CCT Prolonged Care Time Prolonged Care Time: Yes Total Prolonged Care Time: 100 Time Spent Midlevel 100 minutes with >50% of time spent at bedside with patient and family discussing condition and GOC.
[2018-11-17] MEDS ORDERED: MoRPHine SULFATE CR 15 MG TABCR PO SCH (13:30)
--- NOTE | 2018-11-17 15:19 | Hospitalist Progress Note ---
Date of Service November 17, 2018 Assessment & Plan (1) Atrial fibrillation with controlled ventricular rate: Afib RVR New Onset CXR:Cardiomegaly with mild congestive change and trace bilateral pleural effusions. This is similar to the prior study. Left basilar linear densities also persist and may represent atelectasis or pneumonia. ECHO:mild LVH, EF:65-70%, RV mildly dilated, RV systolic function mildly reduced Continue Metoprolol 25mg BID Added Digoxin on Heparin ggt for anticoagulation Appreciate Cardiology help Acute Kidney Injury Cr 1.4 Diuretics held due to JEANNE Monitor renal function Avoid Nephrotoxic agents as able Chronic Diastolic heart failure ECHO as above Diuretics held due to JEANNE H/O interstitial Lung Disease Chronic Oxygen dependency--2.5 liters at baseline Chronic Steroid use Continue Prednisone 10mg daily Recently started on Morphine for comfort by PCP Palliative Care consulted to address goals of Care H/O CAD S/P stent Continue aspirin, Plavix, metoprolol, Crestor Hypertension BP stable Continue current meds Hyperlipidemia on statin DM II: Hold PO meds Last Hb A1C: 7.1 last April 2018 Continue ISS, Lantus Monitor BGs Chronic anemia Hemoglobin at baseline Monitor CBC DVT Px: on Heparin ggt Code Status DNI/DNR Disposition: To be determined Subjective Patient is seen and examined at bedside Reports Shortness of breath with minimal exertion Also has transient dizziness and nausea earlier today Requests Miralax for constipation Denies chest pain Family at bedside Offers no other complaints On Heparin ggt No bleeding issues Review of Systems Review of Systems: All systems reviewed & are unremarkable except as noted in HPI & below Physical Exam Physical Exam: Physical Exam: Vitals signs as noted above General Appearance:Moderately built and nourished, no apparent distress Head: normocephalic, Atraumatic Eyes: normal inspection, EOMI Neck: supple, Trachea midline Respiratory/Chest: Normal breath sounds, +left basal crackles Cardiovascular: Irregularly Irregular, No murmur Abdomen/GI:Soft, Non tender, Bowel sounds present Extremities/Musculoskelatal:normal inspection, no edema Neurologic/Psych:AAOX3, grossly no focal neurological deficits Skin: normal color, warm Results & Data Vital Signs (Past 12 Hours) Vital Signs Temp Pulse Resp BP Pulse Ox 11/17/18 08:00 36.7 C 76 18 111/74 95 Laboratory Results Short CBC 11/16/18 11/17/18 Range/Units 16:55 03:26 WBC 10.79 9.78 (4.8-10.8) K/uL Hgb 12.8 L 11.8 L (14.0-18.0) g/dL Hct 37.9 L 34.5 L (42-52) % Plt Count 207 170 (130-400) K/uL BMP 11/16/18 11/17/18 16:55 03:26 Sodium 133 L 138 Potassium 4.6 3.6 D Chloride 95 L 97 L Carbon Dioxide 29 31 BUN 34 H 32 H Creatinine 1.42 H 1.43 H Glucose 209 H 201 H Calcium 9.2 8.6 Cardiac Enzymes 11/16/18 11/17/18 Range/Units 16:55 03:26 Troponin I 0.036 0.034 (0-0.045) ng/ml Liver Function 11/16/18 Range/Units 16:55 Total Bilirubin 0.4 (0.2-1) mg/dl AST 18 (15-37) U/L ALT 49 (12-78) U/L Alkaline Phosphatase 24 L (45-117) U/L Albumin 3.8 (3.4-5.0) gm/dl Urine 11/16/18 11/17/18 Range/Units 19:25 01:00 Urine Color Yellow Yellow Urine Appearance Clear Clear (Clear) Urine pH 6.5 7.0 (4.5-7.5) Ur Specific Rhodes 1.011 1.010 (1.000-1.030) Urine Protein Negative Negative (Negative) Urine Glucose (UA) Negative Negative (Negative)
--- NOTE | 2018-11-17 15:26 | Cardiology Consultation ---
Date of Consultation November 17, 2018 Assessment & Plan (1) Atrial fibrillation with controlled ventricular rate: Given his severe underlying lung disease is actually quite surprising that the patient has not been in atrial fibrillation to this point. He is rate controlled at this time but his rates to increase from time to time so I will start him on digoxin 0.125 mg daily today. His primary eyelet row marker Dr. Aparicio is already reached out to pharmacy and we with help of case management we found that Eliquis would be $15 a month for him so he will be started on that as well for long-term anticoagulation. The pathophysiology of atrial fibrillation along with treatment options were discussed at great length with the patient his and his [id number]. Given his severe underlying lung disease and the fact that I have no doubt he will return to atrial fibrillation will follow rate control strategy which they all agree with. We will continue his current dose of metoprolol again digoxin will be added as well Eliquis. (2) Interstitial lung disease: Unfortunately from what I can see this appears to be end-stage disease. I roughly reviewed the options for end-of-life care with the patient has family and I will ask our palliative care colleagues to further discuss it with him as long as well as goals of care. (3) Acute diastolic heart failure: Does not examine his volume overload we will hold off on diuretics at this time. (4) CAD (coronary artery disease): Stable History of Present Illness Reason for Consultation: new onset afib Attending Physician: Torsten Strauss MD History of Present Illness It was my pleasure to see Mr. Cordova in consultation today November 17, 2018. As you know he is a very pleasant 78-year-old gentleman who normally follows with Dr. Thornton and Crow Lorenz of our cardiology practice. He presented to [facility] on 11/16/2018 from his primary care physician's office after complaints of increasing shortness of breath. He was seen by Dr. Leahy and EKG was performed which revealed him to be in new onset atrial fibrillation. The case was discussed with his primary eyelet row marker Dr. Aparicio who recommended inpatient treatment given his multiple comorbidities. He was transferred to [facility] where he was started on heparin therapy and admitted to telemetry. He was maintained on his usual oxygen saturation and continued on his outpatient dose of metoprolol. Currently states he feels more short of breath than normal he states that over the last several weeks he has been noticing his breathing continue to deteriorate despite his pulse ox remaining unchanged. He has been seen by pulmonary medicine through [facility] for his interstitial lung disease that unfortunately does appear to be end-stage. He was sent to pulmonary rehab which unfortunately he did not tolerate. Allergies Allergy/AdvReac Type Severity Reaction Status Date / Time nut - unspecified Allergy Severe MACADAMIA Verified 11/16/18 20:31 NUT = THROAT SWELLING grass pollen-perennial rye, Allergy Unknown HAY FEVER Verified 11/16/18 20:31 standar atenolol AdvReac Unknown Cough Verified 11/16/18 20:32 Home Medications Home Medications Medication Instructions Recorded Confirmed Type fexofenadine [Vane Allergy] 180 mg PO DAILY PRN 12/21/17 11/16/18 History clopidogrel 75 mg PO QAM #30 tab 12/22/17 11/16/18 Rx finasteride 5 mg PO DAILY 01/24/18 11/16/18 History metoprolol tartrate 25 mg PO BID 01/24/18 11/16/18 History nitroglycerin 0.4 mg SUBLINGUAL DIRECTED 01/24/18 11/16/18 History rosuvastatin 20 mg PO HS 01/24/18 11/16/18 History tamsulosin 0.4 mg PO DAILY 01/24/18 11/16/18 History torsemide 20 mg PO QAM #30 tab 01/27/18 11/16/18 Rx aspirin [Aspir-81] 81 mg PO DAILY 09/13/18 11/16/18 History ferrous sulfate 325 mg PO QDB 09/13/18 11/16/18 History spironolactone 25 mg PO DAILY 09/13/18 11/16/18 History alprazolam 0.5 mg PO TID PRN 11/16/18 11/16/18 History cholecalciferol (vitamin D3) 2,000 unit PO DAILY 11/16/18 11/16/18 History cyanocobalamin (vitamin B-12) 1,000 mcg PO DAILY 11/16/18 11/16/18 History metformin 1,000 mg PO BID 11/16/18 11/16/18 History metoclopramide HCl 5 mg PO TIDM 11/16/18 11/16/18 History mirtazapine 15 mg PO HS 11/16/18 11/16/18 History morphine 15 mg PO Q12H PRN 11/16/18 11/16/18 History pantoprazole 20 mg PO QAM 11/16/18 11/16/18 History prednisone 10 mg PO UD 11/16/18 11/16/18 History Patient History Medical History Acute diastolic heart failure Chronic diastolic heart failure Allergic asthma (Chronic) Hyperlipidemia (Chronic) Hypertension (Chronic) Depression (Chronic) GERD (gastroesophageal reflux disease) (Chronic) Allergic rhinitis (Chronic) Epiphrenic diverticulum (Chronic) Lumbar disc disease (Chronic) H/O malignant neoplasm of colon (Chronic) DM type 2 (diabetes mellitus, type 2) (Chronic) Pulmonary nodule (Chronic) Anxiety (Chronic) Surgical History S/P right coronary artery (RCA) stent placement H/O coronary angioplasty (Chronic) "12/2013- angioplasty of LAD" S/P thoracotomy (Chronic) "02/24/2013- diverticulectomy of esophagus thoracic approach, esophogastric fundoplasty, imbrication of diaphragm" Social History Preferred Language: Jordanian Communication Ability: Effective 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 No acute distress. HEENT: Normocephalic, atraumatic. Pupils equal, round and reactive to light and accommodation. Extraocular muscles are intact. Anicteric sclera. Moist mucous membranes. Neck: No JVD. No bruit. Cardiovascular: irregularly irregular, unable to appreciate murmur, rub or gallop. Pulmonary: Very poor air movement bilaterally with scattered rhonchi no rales or wheezing Abdomen: Bowel sounds x 4, soft. No rebound, guarding or tenderness. No organomegaly. Extremities: No clubbing, cyanosis or edema. +2 pedal pulses bilaterally. Skin: Warm and dry. Results & Data Vital Signs (Past 12 Hours) Vital Signs Temp Pulse Resp BP Pulse Ox 11/17/18 08:00 36.7 C 76 18 111/74 95
[2018-11-17] MEDS: DIGOXIN 0.125 MG TAB PO SCH (15:33)
[2018-11-17] MEDS: MoRPHine SULFATE 5 MG/0.25 ML UDP PO PRN (15:42)
[2018-11-17] MEDS: HEPARIN SODIUM/DEXTROSE 25,000 UNITS/500 ML BAG IV SCH (15:43)
[2018-11-17] MEDS: ALPRAZolam 0.5 MG TABLET PO PRN (20:23)
[2018-11-17] MEDS: MoRPHine SULFATE CR 15 MG TABCR PO SCH (20:23)
[2018-11-17] MEDS ORDERED: ROSUVASTATIN CALCIUM 20 MG TAB PO SCH (21:00)
[2018-11-17] MEDS ORDERED: MIRTAZAPINE TAB 15 MG TAB PO SCH (21:00)
[2018-11-17] MEDS ORDERED: INSULIN GLARGINE SOLOSTAR 100 UNITS/ML 3 ML PEN SQ SCH (21:00)
[2018-11-18] MEDS: MoRPHine SULFATE 5 MG/0.25 ML UDP PO PRN ×2 (01:14→08:31)
[2018-11-18 06:53] LABS: Hematocrit (blood only) 34.2 % (42-52); Hemoglobin 11.7 g/dL (14.0-18.0); Mean Corpuscular Hemoglobin 32.8 pg (25-34); Mean Corpuscular Hgb Conc 34.2 g/dL (32-36); Mean Corpuscular Volume 95.8 fL (80-100); Mean Platelet Volume 9.3 fL (7.4-10.4); Platelet Count 157 K/uL (130-400); RDW Coefficient of Variation 13.1 % (11.5-14.5); RDW Standard Deviation 45.6 fL (36.4-46.3); Red Blood Count 3.57 M/uL (4.7-6.1); White Blood Count 9.39 K/uL (4.8-10.8)
[2018-11-18 07:16] LABS: Partial Thromboplastin Ratio 4.2
[2018-11-18 07:26] LABS: BUN Creatinine Ratio 22.1 (10-20); Calcium 8.3 mg/dl (8.5-10.1); Est GFR (African American) 67.7; Est GFR (Non-African American) 58.4; Magnesium 2.6 mg/dl (1.8-2.4); Potassium 3.8 mmol/L (3.5-5.1)
[2018-11-18 07:47] LABS: Partial Thromboplastin Time > 139.0 Seconds (21.0-31.0)
[2018-11-18] MEDS: INSULIN ASPART 100 UNITS/ML 3 ML PEN SC SCH ×2 (08:24→11:52)
[2018-11-18] MEDS: FERROUS SULFATE 325 MG TAB PO SCH (08:26)
[2018-11-18] MEDS: METOCLOPRAMIDE HCL 5 MG TABLET PO SCH ×2 (08:26→11:51)
[2018-11-18] MEDS: ASPIRIN 81 MG ECTAB PO SCH (08:26)
[2018-11-18] MEDS: CLOPIDOGREL BISULFATE 75 MG TAB PO SCH (08:27)
[2018-11-18] MEDS: PANTOprazole 40 MG TAB PO SCH (08:27)
[2018-11-18] MEDS: METOPROLOL TARTRATE 25 MG TAB PO SCH (08:27)
[2018-11-18] MEDS: TAMSULOSIN HCL 0.4 MG CAP PO SCH (08:27)
[2018-11-18] MEDS: guaiFENesin 600 MG TABCR PO SCH (08:28)
[2018-11-18] MEDS: POLYETHYLENE (MIRALAX) 17 GM PACK PO PRN (08:31)
[2018-11-18] MEDS: MoRPHine SULFATE CR 15 MG TABCR PO SCH (08:31)
[2018-11-18] MEDS: FINASTERIDE 5 MG TAB PO SCH (08:35)
[2018-11-18] MEDS: predniSONE 10 MG TABLET PO SCH (08:36)
[2018-11-18 10:39] LABS: Partial Thromboplastin Ratio 1.1
[2018-11-18] MEDS ORDERED: APIXABAN 5 MG TABLET PO SCH (11:00)
--- NOTE | 2018-11-18 11:50 | Cardiology Progress Note ---
Date of Service November 18, 2018 Assessment & Plan (1) Atrial fibrillation with controlled ventricular rate: Given his severe underlying lung disease is actually quite surprising that the patient has not been in atrial fibrillation to this point. He is rate controlled at this time but his rates to increase from time to time so I will start him on digoxin 0.125 mg daily today. His primary silo operator Dr. Aparicio is already reached out to pharmacy and we with help of case management we found that Eliquis would be $15 a month for him so he will be started on that as well for long-term anticoagulation. The pathophysiology of atrial fibrillation along with treatment options were discussed at great length with the patient his and his [id number]. Given his severe underlying lung disease and the fact that I have no doubt he will return to atrial fibrillation will follow rate control strategy which they all agree with. We will continue his current dose of metoprolol again digoxin will be added as well Eliquis. (2) Interstitial lung disease: Unfortunately from what I can see this appears to be end-stage disease. greatly appreciate palliative care input for home hospice which I believe is a mclaughlin decision (3) Acute diastolic heart failure: Does not examine his volume overload we will hold off on diuretics at this time. (4) CAD (coronary artery disease): Stable Subjective Pt seen and examined with family at bedside, states that he feels great today. SOB is stable. Denies cp, palpitations, lightheadedness or dizziness. Had long family discussion with palliatitve care, will pursue home hospice. tele reviewed: afib in 70's-80's Review of Systems Review of Systems: All systems reviewed & are unremarkable except as noted in HPI & below Physical Exam Physical Exam: General: Awake, alert and oriented x 3. No acute distress. HEENT: Normocephalic, atraumatic. Pupils equal, round and reactive to light and accommodation. Extraocular muscles are intact. Anicteric sclera. Moist mucous membranes. Neck: No JVD. No bruit. Cardiovascular: irregularly irregular, unable to appreciate murmur, rub or gallop. Pulmonary: Poor air movement diffusely, scattered rhonchi Abdomen: Bowel sounds x 4, soft. No rebound, guarding or tenderness. No organomegaly. Extremities: No clubbing, cyanosis or edema. +2 pedal pulses bilaterally. Skin: Warm and dry. Results & Data Vital Signs (Past 12 Hours) Vital Signs Temp Pulse Pulse Resp BP Pulse Ox 11/18/18 11:34 100 11/18/18 11:24 36.4 C L 90 18 121/75 11/18/18 07:17 36.5 C 61 19 108/70 99 11/18/18 05:09 36.4 C L 69 22 110/69 98 11/18/18 00:00 79
--- NOTE | 2018-11-18 13:35 | Palliative Care Progress Note ---
Date of Service November 18, 2018 Assessment & Plan (1) Goals of care, counseling/discussion: -Patient states that he feels pretty well today. The Roxanol and long- acting morphine are working well. -[facility] hospice nurse practitioner was at bedside with patient and family when I entered. - and her sister were bedside as well. We discussed getting patient home today. Patient was becoming overwhelmed with all the information, so we did not completed POLST form at this time, but I did make hospice agency aware that it was not completed-- they will take care of it. -Continue MS Contin 15mg PO BID scheduled. Roxanol 5mg PO Q6h PRN pain or SOB. -Please contact palliative care with any further needs. (2) Atrial fibrillation with controlled ventricular rate: (3) Shortness of breath: (4) Interstitial lung disease: Subjective Patient states that he feels pretty well today. The Roxanol and long-acting morphine are working well. [facility] hospice nurse practitioner was at bedside with patient and family when I entered. Review of Systems Review of Systems: Const: No weakness ENMT: No dysphagia Resp: + SOB, + dry cough, + dyspnea on exertion Cardio: No chest pain, no edema GI: No abdominal pain, no N/V MS: No musculoskeletal pain Neuro: No confusion Psych: No anxiety, no depression Physical Exam Constitutional: + overweight ENMT: external ear and nose normal, oropharynx normal Neck: normal visual inspection Respiratory: + labored breathing (mildly labored at rest) Auscultation: + diminished lung sounds and + rhonchi Cardiovascular: Rate/Rhythm: regular rate and + irregularly irregular Gastrointestinal (Abdomen): Inspection/Auscultation: abdomen normal to inspection and normal bowel sounds Percussion/Palpation: abdomen soft Neurologic: moves all extremities and awake Psychiatric: A+Ox3, euthymic affect Results & Data Vital Signs (Past 12 Hours) Vital Signs Temp Pulse Resp BP Pulse Ox 11/18/18 11:34 100 11/18/18 11:24 36.4 C L 90 18 121/75 11/18/18 07:17 36.5 C 61 19 108/70 99 11/18/18 05:09 36.4 C L 69 22 110/69 98 Time Spent Midlevel 35 minutes with >50% of the time spent at bedside with patient and family discussing condition and GOC.
[2018-11-18] MEDS: ALPRAZolam 0.5 MG TABLET PO PRN (14:48)
--- NOTE | 2018-11-18 15:06 | Hospitalist Progress Note ---
Date of Service November 18, 2018 Assessment & Plan (1) Atrial fibrillation with controlled ventricular rate: Afib RVR New Onset CXR:Cardiomegaly with mild congestive change and trace bilateral pleural effusions. This is similar to the prior study. Left basilar linear densities also persist and may represent atelectasis or pneumonia. ECHO:mild LVH, EF:65-70%, RV mildly dilated, RV systolic function mildly reduced Continue Metoprolol 25mg BID Added Digoxin 0.125 mg daily on Heparin ggt transition to Eliquis for anticoagulation Appreciate Cardiology help Follow up with Cardiology as outpatient Acute Kidney Injury Cr 1.4>>>1.2 Diuretics held due to JEANNE Monitor renal function Avoid Nephrotoxic agents as able Resolved Acute on Chronic Diastolic heart failure ECHO as above Diuretics held due to JEANNE Euvolemic currently H/O interstitial Lung Disease Chronic Oxygen dependency--2.5 liters at baseline Chronic Steroid use Continue Prednisone 10mg daily Recently started on Morphine for comfort by PCP Palliative Care consulted to address goals of Care Plan to be discharged home with hospice services H/O CAD S/P stent Continue aspirin, Plavix, metoprolol, Crestor Hypertension BP stable Continue current meds Hyperlipidemia on statin DM II: Hold PO meds Last Hb A1C: 7.1 last April 2018 Continue ISS, Lantus Monitor BGs Chronic anemia Hemoglobin at baseline Monitor CBC DVT Px: Eliquis Code Status DNI/DNR Disposition: Home with Hospice Services Subjective Patient is seen and examined at bedside Doing lot better today SOB much improved Minimal cough intermittently No other complaints Heparin GGT transition to Eliquis Denies chest pain, abd pain, nausea Plan to be discharged home with hospice services Review of Systems Review of Systems: All systems reviewed & are unremarkable except as noted in HPI & below Physical Exam Physical Exam: Physical Exam: Vitals signs as noted above General Appearance:Moderately built and nourished, no apparent distress Head: normocephalic, Atraumatic Eyes: normal inspection, EOMI Neck: supple, Trachea midline Respiratory/Chest: Normal breath sounds, CTA Cardiovascular: Irregularly Irregular, No murmur Abdomen/GI:Soft, Non tender, Bowel sounds present Extremities/Musculoskelatal:normal inspection, no edema Neurologic/Psych:AAOX3, grossly no focal neurological deficits Skin: normal color, warm Results & Data Vital Signs (Past 12 Hours) Vital Signs Temp Pulse Resp BP Pulse Ox 11/18/18 11:34 100 10/11/19 11:24 36.4 C L 90 18 121/75 11/18/18 07:17 36.5 C 61 19 108/70 99 11/18/18 05:09 36.4 C L 69 22 110/69 98 Laboratory Results Short CBC 11/18/18 Range/Units 06:30 WBC 9.39 (4.8-10.8) K/uL Hgb 11.7 L (14.0-18.0) g/dL Hct 34.2 L (42-52) % Plt Count 157 (130-400) K/uL BMP 11/18/18 06:30 Sodium 137 Potassium 3.8 Chloride 98 Carbon Dioxide 31 BUN 27 H Creatinine 1.20 Glucose 157 H Calcium 8.3 L
--- NOTE | 2018-11-18 15:18 | Discharge Summary ---
Date of Service November 18, 2018 Admission HPI Per Admitting Provider History obtained from patient, family, and records. 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 Recent confinement January 2018 for decompensated heart failure. Few days history of worsening shortness of breath on exertion. Intermittent chest pain relieved by nitroglycerin. Dry cough symptoms. No palpitations. Patient actually losing weight although belly distended, leg somewhat swollen as per . Patient seen at PCP's office today. EKG showed A. fib. Patient directed to the emergency room by PCP following sandwich and drink cart operator's recommendations. 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 Admission Exam Per Admitting Provider GENERAL: Comfortable, minimal respiratory distress, occasionally has to catch her breath during speech, obese, cushingoid SKIN: Pallor , warm HEENT: Pale palpebral conjunctivae, no ptosis, dry buccal mucosa, nasal cannula in place NECK : Supple, short neck, no tenderness CHEST : Decreased breath sounds , no tenderness HEART : Tachycardic , irregular, no obvious murmurs ABDOMEN: Some distention, nontender EXTREMITIES : Minimal LE swelling, no LE tenderness, no other conspicuous deformities noted NEUROLOGIC : Coherent, no facial asymmetry, no other gross focality Principal Diagnosis Atrial fibrillation Acute kidney injury Acute on chronic diastolic heart failure Interstitial lung disease Discharge Data Allergies Allergy/AdvReac Type Severity Reaction Status Date / Time nut - unspecified Allergy Severe MACADAMIA Verified 11/16/18 20:31 NUT = THROAT SWELLING grass pollen-perennial rye, Allergy Unknown HAY FEVER Verified 11/16/18 20:31 standar atenolol AdvReac Unknown Cough Verified 11/16/18 20:32 Consultations 11/16/18 20:59 ED Decision to Admit Stat 11/17/18 00:31 Consult Cardiology Routine 11/17/18 07:26 Consult Case Management - Discharge Planning Routine 11/17/18 11:13 Consult Palliative Care Routine Procedures Performed CXR:Cardiomegaly with mild congestive change and trace bilateral pleural effusions. This is similar to the prior study. Left basilar linear densities also persist and may represent atelectasis or pneumonia. ECHO:mild LVH, EF:65-70%, RV mildly dilated, RV systolic function mildly reduced Hospital Course (1) Atrial fibrillation with controlled ventricular rate: Afib RVR New Onset CXR:Cardiomegaly with mild congestive change and trace bilateral pleural effusions. This is similar to the prior study. Left basilar linear densities also persist and may represent atelectasis or pneumonia. ECHO:mild LVH, EF:65-70%, RV mildly dilated, RV systolic function mildly reduced Continue Metoprolol 25mg BID Added Digoxin 0.125 mg daily on Heparin ggt transition to Eliquis for anticoagulation Appreciate Cardiology help Follow up with Cardiology as outpatient Acute Kidney Injury Cr 1.4>>>1.2 Diuretics held due to JEANNE Monitor renal function Avoid Nephrotoxic agents as able Resolved Acute on Chronic Diastolic heart failure ECHO as above Diuretics held due to JEANNE Euvolemic currently H/O interstitial Lung Disease Chronic Oxygen dependency--2.5 liters at baseline Chronic Steroid use Continue Prednisone 10mg daily Recently started on Morphine for comfort by PCP Palliative Care consulted to address goals of Care Plan to be discharged home with hospice services H/O CAD S/P stent Continue aspirin, Plavix, metoprolol, Crestor Hypertension BP stable Continue current meds Hyperlipidemia on statin DM II: Hold PO meds Last Hb A1C: 7.1 last April 2018 Continue ISS, Lantus Monitor BGs Chronic anemia Hemoglobin at baseline Monitor CBC DVT Px: Eliquis Code Status DNI/DNR Disposition: Home with Hospice Services Total Time Total Time Spent Total Time Spent (In Minutes): 39 minutes Total Time Includes: Examination of the Patient, Discharge Planning, Medication Reconciliation, Communication With Other Providers and Other Discharge Plan Discharge Items Patient Disposition: Hospice - Home Reason For Visit: AFIB Discharge Diagnosis: Atrial fibrillation Acute kidney injury Acute on chronic diastolic heart failure Interstitial lung disease Activity: Resume your previous activity Exercise/Sports: Gradually increase as tolerated Non-emergency contact: Primary Care Provider and Asphalt Paver Operator Call non-emergency contact if: you have any medication questions, your symptoms worsen, your pain is not controlled, your pain is worsening, your pain is unusual for you, your pain is concerning for you and you have a fever Follow-up/Referrals: Jen Santiago MD [Primary Care Provider] - Diet: Carb Consistent or DM2 and Heart Healthy Addtl Attending Provider Instructions: Follow-up with your primary care physician Dr. Abdias Leahy on November 22, 2018 at 11 AM Follow-up with your sandwich and drink cart operator Crow Lorenz PA-C on November 28, 2018 at 3:15 PM Seek immediate medical attention if your symptoms reoccur or worsen Call your Primary Care doctor if any of the following symptoms or problems start or get worse: * Shortness of breath or difficulty breathing * Wake up at night short of breath * Chest pain * Cough * Swelling of your hands, feet, or legs * More fatigued or tired with your normal activity * Palpitations - sudden fast heart beats WEIGHT * Weigh yourself every morning after using the bathroom. * Use the same scale. * Wear the same amount of clothing. * Write your weight down on a chart. * Call your Primary Care doctor if you gain more than 2-3 pounds in 1-2 days. MEDICATIONS * Use this discharge instruction sheet for medication instructions. * Take your medications at the time your doctor ordered. * Do not skip a dose of your medicines. * If you miss a dose of medicine, take it as soon as possible, but DO NOT DOUBLE A DOSE. * Read your medicine information when you get home. * Know all of the side effects of your medicine. If in doubt, ask your pharmacist * Call your Primary Care doctor's office if you have any side effects. * Be sure all of your doctors know what medicine and herbs you take (including cold, flu, and herbal medicine). Take the following with you to your follow-up doctor appointments: * Weight Chart * Medication List * List of questions Do not drink excessive alcohol, beer or wine. Pending Studies at Discharge: No Stand-Alone Forms: [facility] Medications and DC Order Prescriptions: New Eliquis 5 mg Tablet 5 mg PO BID Qty: 30 RF: 1 digoxin 125 mcg (0.125 mg) Tablet 125 mcg PO DAILY 30 Days Qty: 30 RF: 1 morphine 15 mg Tablet Extended Release 15 mg PO Q12H Qty: 10 RF: 0 morphine concentrate 100 mg/5 mL (20 mg/mL) Solution 5 mg PO Q6H PRN (Reason: pain) Qty: 30 RF: 0 polyethylene glycol 3350 [Miralax] 17 gram Powder In Packet 17 g PO DAILY PRN (Reason: constipation) 30 Days Qty: 30 RF: 0 Continued fexofenadine [Vane Allergy] 180 mg Tablet 180 mg PO DAILY PRN (Reason: Allergy Symptoms) RF: 0 clopidogrel 75 mg Tablet 75 mg PO QAM Qty: 30 RF: 6 tamsulosin 0.4 mg Capsule 0.4 mg PO DAILY RF: 0 nitroglycerin 0.4 mg Tablet, Sublingual 0.4 mg Sublingual DIRECTED RF: 0 finasteride 5 mg Tablet 5 mg PO DAILY RF: 0 rosuvastatin 20 mg Tablet 20 mg PO HS RF: 0 metoprolol tartrate 25 mg Tablet 25 mg PO BID RF: 0 torsemide 20 mg tablet 20 mg PO QAM Qty: 30 RF: 1 alprazolam 0.5 mg tablet 0.5 mg PO TID PRN (Reason: Anxiety) RF: 0 prednisone 10 mg tablet 10 mg PO UD RF: 0 mirtazapine 15 mg tablet 15 mg PO HS RF: 0 pantoprazole 20 mg tablet,delayed release (DR/EC) 20 mg PO QAM RF: 0 cholecalciferol (vitamin D3) 2,000 unit Tablet 2,000 unit PO DAILY RF: 0 cyanocobalamin (vitamin B-12) 1,000 mcg Capsule 1,000 mcg PO DAILY RF: 0 metformin 500 mg tablet extended release 24 hr 1,000 mg PO BID RF: 0 metoclopramide HCl 5 mg tablet 5 mg PO TIDM RF: 0 aspirin [Aspir-81] 81 mg Tablet,Delayed Release (Dr/Ec) 81 mg PO DAILY RF: 0 spironolactone 25 mg Tablet 25 mg PO DAILY RF: 0 ferrous sulfate 325 mg (65 mg iron) Tablet 325 mg PO QDB RF: 0 Discontinued morphine 15 mg Tablet 15 mg PO Q12H PRN (Reason: Pain) RF: 0 Discharge Orders: Discharge Order (Routine); Ordered 11/18/18 Ordered By: Torsten Strauss Admission Data Admit Date/Time: 11/16/18 22:49 Attending Provider: Torsten Strauss Admit Provider: Cesar Reid Primary Care Provider: Jen Santiago Other Providers: Cesar Reid ; Baljit Aparicio ; Gris Bravo Other Interventions: Discharge Summary Assessment (RN) Last Done: 11/18/18 15:34 DC Date/Time DO NOT enter until pt leaves facility: 11/18/18 16:20
[2018-11-18] MEDS: DIGOXIN 0.125 MG TAB PO SCH (15:49)
== END 2018-11-18 16:20 | disposition hospice, home (50) | DRG 308 ==
LOC: ED 17:19 → 2S 22:49